=== PATIENT | female | born 1955 | race Caucasian/White ===

== ENCOUNTER → 2017-09-08 18:51 | Outpatient (CLI) | payer OTHER, SELFPAY ==
[2017-09-13 15:37] LABS: HPV Reflexed? NOT INDICATED
== END ==
PROVIDERS: Family Provider Family Medicine; PCP Family Medicine; Visit Provider Family Medicine
DX: Z01.419 Encounter for gynecological examination (general) (routine) without abnormal findings (principal)
CPT/HCPCS: 88175; G0145

== ENCOUNTER → 2017-11-01 13:13 | Outpatient (CLI) | payer OTHER, SELFPAY ==
--- NOTE | 2017-11-01 13:15 | BI_ITS ---
MAMMOGRAPHY - BILATERAL SCREENING REASON FOR EXAM: Female, 61 years old. Routine annual screening examination. PERTINENT HISTORY: Non-contributory. TECHNIQUE: Digital bilateral breast kecia (3D mammographic acquisition) in the CC and MLO projections. 2-D mediolateral oblique (MLO) and craniocaudad (CC) views of both breasts were obtained. CAD: Full Field Digital Mammography with Computer Added Detection was performed. COMPARISON: Comparison is made with prior study dated October 19, 2016 and October 09, 2015. FINDINGS: Breast Composition: The breasts are heterogeneously dense, which may obscure small masses. There are no dominant masses or suspicious calcifications. No other significant abnormalities are identified. There has been no significant change since the prior study. BI/SCREENING MAMM (CAD), BILAT IMPRESSION: Stable bilateral screening mammogram. Yearly follow-up mammogram recommended. (A) ASSESSMENT CATEGORY: BIRADS Category 1: Negative. A letter regarding these results will be sent to the patient by the facility within 30 days. Approximately 10% of breast cancers are not detected by mammography. A normal mammogram should not delay biopsy of a clinically suspicious abnormality. [id number] Electronically Signed: Collin Castañeda MD at 8:19 EDT Tel [phone], Service support ,
--- NOTE | 2017-11-01 13:22 | BI_ITS ---
MAMMOGRAPHY - BILATERAL SCREENING REASON FOR EXAM: Female, 61 years old. Routine annual screening examination. PERTINENT HISTORY: Non-contributory. TECHNIQUE: Digital bilateral breast kecia (3D mammographic acquisition) in the CC and MLO projections. 2-D mediolateral oblique (MLO) and craniocaudad (CC) views of both breasts were obtained. CAD: Full Field Digital Mammography with Computer Added Detection was performed. COMPARISON: Comparison is made with prior study dated October 19, 2016 and October 09, 2015. FINDINGS: Breast Composition: The breasts are heterogeneously dense, which may obscure small masses. There are no dominant masses or suspicious calcifications. No other significant abnormalities are identified. There has been no significant change since the prior study. BI/SCREENING MAMM (CAD), BILAT IMPRESSION: Stable bilateral screening mammogram. Yearly follow-up mammogram recommended. (A) ASSESSMENT CATEGORY: BIRADS Category 1: Negative. A letter regarding these results will be sent to the patient by the facility within 30 days. Approximately 10% of breast cancers are not detected by mammography. A normal mammogram should not delay biopsy of a clinically suspicious abnormality. [id number] Electronically Signed: Collin Castañeda MD at 8:19 EDT Tel [phone], Service support ,
== END ==
PROVIDERS: Family Provider Family Medicine; PCP Family Medicine; Visit Provider Family Medicine
DX: Z12.31 Encounter for screening mammogram for malignant neoplasm of breast (principal)
CPT/HCPCS: 77063; 77067

== ENCOUNTER → 2018-02-20 14:58 | Outpatient (CLI) | payer OTHER, SELFPAY ==
[2018-02-20 17:24] LABS: RBC /Synovial Fluid 0.094 10^6/uL (0); Synovial Fld Mononuclear WBC % 47.3 %; Synovial Fld Polynuclear WBC # 0.252 10^3/ul; Synovial Fld Polynuclear WBC % 52.7 %
[2018-02-20 18:40] LABS: Lymph 46 %; Monocyte /Synovial Fluid 5 %; Neutrophil 49 % (0-25)
[2018-02-20 18:47] LABS: AUTO B FLUID DILUENT BKGD CT WBC <0.1 RBC <0.01 (W<.1,R<.01); Appearance /Synovial Fluid Turbid (CLEAR); Color / Synovial Fluid Red (Pale Yellow); Source / Synovial Fluid R KNEE; Viscosity / Synovial Fluid Sl. Viscous (HIGH)
[2018-02-20 19:06] LABS: Body Fluid QC Type(s) BF3Q
[2018-02-21 13:37] LABS: Pathologist Comment Reviewed
== END ==
PROVIDERS: Family Provider Family Medicine; PCP Family Medicine; Visit Provider Specialist
DX: T84.032A Mechanical loosening of internal right knee prosthetic joint, initial encounter (principal)
CPT/HCPCS: 87015; 87070; 87075; 87077; 87101; 87116; 87186; 87205; 87206; 89050; 89051

== ENCOUNTER → 2018-03-09 14:08 | Outpatient (CLI) | payer OTHER, SELFPAY ==
[2018-03-09 15:12] LABS: Absolute Lymphocyte Count 2.13 X10^3/ul (0.83-4.51); Absolute Neutrophil Count 3.5 X10^3/uL (2.0-7.7); Basophil# 0.03 X10^3/uL; Basophil% 0.5 % (0-1); Eosinophil# 0.25 X10^3/uL; Eosinophils% 3.9 % (0-5); Hematocrit 41.6 % (37-47); Hemoglobin 13.1 g/dl (12.0-15.0); Lymphocyte # 2.13 X10^3/ul (4.0); Lymphocyte % 33.5 % (19-41); Mean Corp Hgb Conc 31.5 g/gl (32-36); Mean Corpuscular Hgb 30.4 pg (27.0-32.0); Mean Corpuscular Volume 96.5 fL (81-99); Mean Platelet Vol. 8.7 fl (6.2-12.0); Monocyte# 0.42 X10^3/uL; Monocyte% 6.6 % (0-10); Neutrophil # 3.52 X10^3/uL (2.7-7.7); Neutrophil % 55.3 % (47-70); Platelet Count 294 K/mm3 (150-450); RBC Distribution Width CV 13.8 % (11.6-14.6); RBC Distribution Width SD 48.3 fl (35.1-43.9); Red Blood Count 4.31 M/mm3 (4.2-5.4); White Blood Count 6.4 K/mm3 (4.4-11.0)
[2018-03-09 15:17] LABS: POSITIVE COUNT NO; POSITIVE DIFFERENTIAL NO; POSITIVE MORPHOLOGY NO
[2018-03-09 15:27] LABS: RBC /Synovial Fluid 0.245 10^6/uL (0); Synovial Fld Mononuclear WBC % 48.5 %; Synovial Fld Polynuclear WBC # 0.167 10^3/ul; Synovial Fld Polynuclear WBC % 51.5 %
[2018-03-09 15:27] LABS: Erythrocyte Sedimentation Rate 14 mm/hr (0-30)
[2018-03-09 15:36] LABS: CRP 6.58 mg/L (0.0-3.0)
[2018-03-09 16:36] LABS: Lymph 48 %; Monocyte /Synovial Fluid 21 %; Neutrophil 28 % (0-25); Other Cell /Synovial Fluid 3 %
[2018-03-09 16:37] LABS: AUTO B FLUID DILUENT BKGD CT WBC <0.1 RBC <0.01 (W<.1,R<.01)
[2018-03-09 16:38] LABS: Appearance /Synovial Fluid Hazy (CLEAR); Body Fluid QC Type(s) BF2Q; Color / Synovial Fluid Bloody (Pale Yellow); Source / Synovial Fluid R KNEE
[2018-03-10 15:15] LABS: Pathologist Comment Reviewed
== END ==
PROVIDERS: Family Provider Family Medicine; PCP Family Medicine; Referring Provider Specialist; Visit Provider Specialist
DX: T84.032A Mechanical loosening of internal right knee prosthetic joint, initial encounter (principal)
CPT/HCPCS: 36415; 85025; 85652; 86140; 87015; 87070; 87075; 87101; 87116; 87205; 87206; 89050; 89051

== ENCOUNTER 2018-05-17 11:07 | Inpatient (IN) | payer OTHER, SELFPAY ==
--- NOTE | 2018-05-05 22:22 | HP.PCM_ITS ---
History and Physical DATE OF SURGERY: 05/17/2018 SCHEDULED PROCEDURE: Revision Right Total Knee Arthroplasty HISTORY OF PRESENT ILLNESS: This is a 62-year-old female who has been having increased pain for the past 5-6 months. Patient initially underwent a right total knee arthroplasty in May 2011. She had a manipulation of the right knee in 2011. She denied any infections postoperatively. X-ray showed progressive loosening with the right knee components. Patient underwent a revision right total knee arthroplasty on December 01, 2016. Began having increased pain approximately 6 months ago. Patient had initial aspiration which was questionable for infection. Patient had second aspiration and lab work which was negative for infection. Lab work on March 09, 2018 showed an ESR of 14 and CRP 6.58. Patient continues to have pain which is intermittent, dull, and sore. Pain is increased going up and down stairs and sitting. She has difficult time with activities of daily living including walking her dog, housework, and shopping. Patient feels unsafe going up and down stairs. Patient has been through formal physical therapy with no relief in symptoms. She has tried oral medications with no relief in symptoms. Patient has a medical history pertinent for psoriasis and rheumatoid arthritis. We have obtain surgical clearance from patient's primary care physician. Patient currently denies chest pain, shortness of breath, fevers chills, recent infections. Recent x-rays do show lucencies around the components. After failing conservative measures and discussing treatment options with Dr. Manjinder Vogel, the patient does wish to proceed with a revision right total knee arthroplasty. REVIEW OF SYSTEMS: ROS: Const: Reports weight change and vision problems, but denies anorexia and fever,hard of hearing . Eyes: Reports a recent change in visual acuity. CV: Denies heart murmur, chest pain, irregular heartbeat and peripheral vascular disease. Resp: Denies asthma, cough, pneumonia, sleep apnea, SOB, tuberculosis and wheezing. GI: Reports constipation and heartburn, but denies diarrhea, nausea, bloody stools and vomiting, and difficulty swallowing. : Genital: reports dysmenorrhea. Urinary: denies incontinence. Musculo: Reports leg swelling and trouble walking, but denies weakness and limp. Skin: Denies Raynaud's, history of shingles and tattoo. Neuro: Reports numbness/tingling but denies ambulatory dysfunction, dizziness and tremor. Psych: Reports stress, but denies anxiety, depression, insomnia and mental illness. Otf/Lymph: Reports anemia, but denies bleeding/bruising tendency and past transfusion. Reviewed, no changes. 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 COATES Carpal Tunnel - BILAT/1990/[facility]/DR. RANDOLPH BILAT/1995/[facility]/ RT TKR - (05/2011) DR. COATES Manipulation RT Knee - (08/2011) DR. COATES Back - (2013) Spinal Cord Stimulation - 08/23--IMPLANTED 08/30--REMOVED RT TKR Revision - (12/01/2016) SAW@[facility] Shoulder Replacement LT - Dr. Vogel 05-31-17 Spinal Cord Stimulator Placed - (10/2017) Anesthesia Complications: Anesthesia Complications - 1995 Trouble Waking Up Assistive Devices: Glasses Reviewed, no changes. 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 Personal Habits: Cigarette Use: Former.Alcohol: Occasionally.Drug Use: Denies Use.Enjoy Exercising: Daily. Reviewed, no changes. VITALS: Ht: 64 Wt: 184lb Wt k.462 BMI: 31.6 BP: 112/70 Pulse: 68 Resp: 05018 ALLERGIES: PCN Sulfa Formaldehyde Fragrance - ??? MEDICATIONS: Amitriptyline HCL 25 mg 1 tab PO qhs, Folic Acid 1 mg 2 tabs PO once daily, Plaquenil 200 mg 1 tab PO bid, Methotrexate 2.5 mg 7 tabs by mouth once weekly, Multivitamin 1 tab PO daily PRE-OP EXAM: General appearance:NORMAL Other: Eyes: Conjunctivae and lids: NORMAL Pupils: ERR Ears, Nose, Mouth, and Throat: NORMAL Other: Inspection of lips, teeth and gums: NORMAL Other: Neck: Examination of neck: no masses noted. Respiratory: Assessment of respiratory effort: NORMAL Other: Auscultation of lungs: clear to auscultation no wheezes, rhonchi or rales. Cardiovascular: Auscultation of heart: regular rate and rhythm, no murmurs, gallops or rubs. Exam of carotid arteries: NORMAL Other: Gastrointestinal: Exam of abdomen: soft, nontender, nondistended bowel sounds present. PHYSICAL EXAMINATION: Right knee is cool to touch without erythema. Previous incision is well-healed. Patient's range of motion is 0 of extension to 110 flexion. Patient walks without a limp in gait. She does have pain when walking. Sensation intact to light touch. Neurovascularly intact. IMAGING STUDIES: X-rays of the right knee on February 20, 2018 does reveal progressive lucencies around the cement mantle and implant particularly over the medial tibia. There is also lucencies at the tip of the femoral stem. IMPRESSION: 1. Painful right total knee with loosening 2. Rheumatoid arthritis 3. Psoriasis 4. History of headaches/migraines PLAN: Dr. Manjinder Vogel did discuss and review with the patient all treatment options including surgical versus nonsurgical options. Patient does wish to proceed wi th the above-stated procedure. Potential risks, benefits, and complications of the procedure were discussed in detail including but not limited to , infection, nerve and blood vessel damage, persistent pain, numbness, tingling, paresthesias, blood clot, pulmonary embolism, and requirement for possible further surgery. The patient expressed full understanding and has no further questions for the doctor. Patient does agree to proceed with the above-stated procedure and has signed the surgery consent form. This dictation was created using voice recognition software. Phonetic and/or grammatical errors may exist.. ___ I have re-examined the patient. There are no clinical changes since date of exam. ___ See progress notes for changes. ___ Dictated on admission Date: Time: Signature:
[2018-05-09 13:07] VITALS: BP 113/67; PULSE 85; RESP 16; TEMP 36.5; O2SAT 96; BMI 31.6
--- NOTE | 2018-05-09 13:20 | SDCEKG_ITS ---
Test Reason : Blood Pressure : / mmHG Vent. Rate : 077 BPM Atrial Rate : 077 BPM P-R Int : 158 ms QRS Dur : 090 ms QT Int : 398 ms P-R-T Axes : 054 060 044 degrees QTc Int : 450 ms Normal sinus rhythm Normal ECG Confirmed by RASHID WERNER, ERNIE ([id number]), editor managing newspaper AMELIA IRAHETA ([id number]) on 05/12/2018 2:49:52 PM Referred By: Manjinder Vogel Confirmed By:ERNIE MIKE MD
[2018-05-09 15:03] LABS: Absolute Lymphocyte Count 1.76 X10^3/ul (0.83-4.51); Absolute Neutrophil Count 3.5 X10^3/uL (2.0-7.7); Basophil# 0.03 X10^3/uL; Basophil% 0.5 % (0-1); Eosinophil# 0.29 X10^3/uL; Eosinophils% 4.8 % (0-5); Hematocrit 41.4 % (37-47); Hemoglobin 13.1 g/dl (12.0-15.0); Lymphocyte # 1.76 X10^3/ul (4.0); Lymphocyte % 28.9 % (19-41); Mean Corp Hgb Conc 31.6 g/gl (32-36); Mean Corpuscular Hgb 30.5 pg (27.0-32.0); Mean Corpuscular Volume 96.3 fL (81-99); Mean Platelet Vol. 8.6 fl (6.2-12.0); Monocyte# 0.55 X10^3/uL; Neutrophil # 3.47 X10^3/uL (2.7-7.7); Neutrophil % 56.8 % (47-70); Platelet Count 270 K/mm3 (150-450); RBC Distribution Width CV 13.6 % (11.6-14.6); RBC Distribution Width SD 46.4 fl (35.1-43.9); White Blood Count 6.1 K/mm3 (4.4-11.0)
[2018-05-09 15:04] LABS: POSITIVE COUNT NO; POSITIVE DIFFERENTIAL NO; POSITIVE MORPHOLOGY NO
[2018-05-09 15:25] LABS: Anion Gap 6 (5-15); BUN 17 mg/dL (7-18); BUN/Creat Ratio 22.3 RATIO (10-20); Calcium,Total 8.8 mg/dL (8.5-10.1); Chloride 108 mmol/L (98-107); Creatinine, Serum 0.76 mg/dL (0.55-1.02); EST Glomerular Filtration Rate 81 mL/min (>60); Est Glom Filt Rate - Afr Amer 98 mL/min (>60); Estimated Creatinine Clearance 64.58 ml/min; Glucose 91 mg/dL (74-106); Potassium 3.9 mmol/L (3.5-5.1); Sodium Level 142 mmol/L (136-145)
--- NOTE | 2018-05-12 14:21 | CASEMGMT ---
Attempted to contact patient to discuss discharge needs after upcoming surgery. No answer on cell phone, voicemail left. Mae Hays LPN Clinical Support
--- NOTE | 2018-05-15 12:17 | CASEMGMT ---
Received voicemail from patient this morning, attempted to call back on cell phone, no answer. Voicemail left. Mae Hays LPN Clinical Support
--- NOTE | 2018-05-15 13:59 | CASEMGMT ---
Spoke with patient regarding discharge needs after upcoming surgery. Patient plans to return home with assistance from and with neighbor checking in. Outpatient PT set up in [place], [id number] will assist with transportation. Patient has a walker and grab bars, no toilet riser or shower seat. The bedroom and bathroom are up approx 6 steps, patient reports she did not have any problems navigating the stairs the last 2 times shes had surgery. There's 1 step from garage into house and then another 5-6 steps. Informed patient that RN-CM will follow up after surgery. Mae Hays LPN Clinical Support
[2018-05-17] VITALS (10 sets, daily range): BP systolic 92–125; BP diastolic 54–80; PULSE 70–82; RESP 16–18; TEMP 35.9–36.6; O2SAT 94–100; BMI 31.6
[2018-05-17] MEDS: oxyCODONE HCl Cr 10 MG Tablet PO (11:46)
[2018-05-17] MEDS: Acetaminophen 500 MG Tablet 1000 MG PO ×2 (11:46→22:44)
[2018-05-17] MEDS: Celecoxib 200 MG Capsule 400 MG PO (11:46)
--- NOTE | 2018-05-17 16:39 | OP.PCM_ITS ---
Report of Operation Date of Procedure: 05/17/18 Pre-Operative Diagnosis: Failed right total knee replacement, aseptic loosening Post-Operative Diagnosis: Failed right total knee replacement, aseptic loosening Surgery/Procedure Performed:: Revision right total knee replacement entire tibia and femoral components Description of Surgical Findings:: Stable knee good patella tracking. No signs of infection intraoperatively neck band maker: Todd Raymond Type of Anesthesia:: General Anesthesiologist: Ion Person Special Medications: 600 mg clindamycin prior to incision and 2 and half hours after incision, 1 g TXA at incision, 1 g TXA closure, 10 mg Decadron, joint cocktail (5 mg Duramorph, 30 mL of 0.5% Ropivicaine, 1000 units of epinephrine, 30 mg of Toradol) Specimen's removed: 5 total specimens were sent to microbiology Estimated Blood Loss (mL): 200 mL Fluids Replaced: 2000 L crystalloid Description of Procedure: Components used: Femur: Triathlon TS size 4 right femur with 10 mm augments medially and laterally distally and 5 mm augment posterior laterally. Stem 17 x 150 mm fluted stem Tibia: [place] tibial baseplate size 3 stem, 16 mm x 100 mm fluted stem, size D tibial cone Polyethylene: 19 mm TS Rosy X3 polyethylene Procedure: On the date of the procedure patient's right leg was marked in the preoperative area. Patient was taken back to the operating room where there transferred to the table in the supine position. Anesthesia assumed control of the C-spine airway and remained to control throughout the remainder of the procedure. After anesthetic was administered all bony prominences were identified well-padded and a tourniquet was placed on the right upper thigh. Appropriate positioning was done with the assistance of the PA. The right lower semi-was then prepped in a sterile fashion while the surgeon scrubbed. After my assistant foreman and myself scrubbed and reentered the room the right leg was draped in a standard orthopedic fashion. Incision was marked out using the previous incision and a timeout was called. Everyone agreed upon the side, the site, the procedure be performed, patient's identity and antibiotics given. Esmarch bandage was used to exsanguinate the extremity and the leg was flexed. Tourniquet was placed up to 250 mmHg. Incision was taken down through skin subcutaneous tissue fat down to fascia. Appropriate cutaneous flaps were made medially and laterally. Once we identified the previous arthrotomy sharp dissection was used to make the arthrotomy. We did a quadriceps snip proximally. At this time the knee was placed in extension and aggressive synovectomy was performed. We released the medial collateral ligament for appropriate exposure. We then started with a medial gutter synovectomy proceeding to the suprapatellar pouch and finally to the lateral gutter. Once this was completed we flexed the knee up and removed the polyethylene. Once a polyethylene was removed the remainder of the synovectomy was completed. Our attention was then directed towards the femur. Osteotomes were used to break up the bone cement interface as well as a significant cell. In between the cement and bone was noted to be a membrane. An osteotome was placed between the cone and the distal femoral component and it was eventually dislodged from the cement mantle. Once the femur was removed we were able to inspect the distal femur. The cone body was well fixed to the bone at this time we elected to keep the cone body. We then directed our attention to the tibia. Tibia was adequately exposed and starting medially we began to break up the bone cement interface. Once we did this we were able to place osteotomes between the tibial baseplate and tibial cone. We used these osteotomes to dislodge the tibia component. Once this was removed we could then evaluate the tibial cone. Based on the radiographic x-rays and visualization of the tibial, we elected to remove the tibial cone. Should be noted that to remove the implants from the tibial cones took careful attention and extra time is not to cause an intraoperative fracture. We then directed our attention towards the tibia where a pencil-tip bur was used to bur circumferentially around the cone. Once we had burred to circumferentially around the cone using irrigation to try and prevent bone necrosis were able to remove the cone using the cone extraction device. At this time we had to remove cement mantle from both the tibia and the femur. After removing the cement mantle from the tibia are tourniquet time had reached 90 minutes and we elected to place the tourniquet down for the remainder of the bone prep. This was done very carefully and took significant amount of time. After the cement mantle was removed and the tibia we then removed it from the femur using osteotomes and drills. Once the cement was completely removed from both canals we then sequentially reamed both canals. The tibial canal was reamed to 16 mm and the femoral canal was reamed to 17 mm. Tibial canal was re doris for 100 mm stem and the femoral canal was reamed for 150 mm stem. Once the canals were properly prepped we then re-reamed the proximal tibia for a larger cone. We reamed to a size D cone. The D cone trial was impacted into place and a flat tibial cut was made just above this. This was taken down to good bone. Once a cleanup cut was made we then placed the tibial trial component after ray cking the tibial cut for appropriate cut with the drop gabriel. Once the tibial trial was placed we then prepared the distal femoral bone in keeping in mind that the previous colon was still in place we placed the 2, 10 mm distal femoral augments as was the case with the extracted implants. The posterior lateral 5 mm augment was also placed. At this time we were able to trial. This gave us good patella tracking. We had a balanced knee. Trials were removed at this time. The bone ends were exposed and a bur was used to roughen up the bone ends and make small interdigitation areas. Once we are happy with the appropriate bone prep which we took extra time and attention preparing the bone due to the nature of the loosening and minimal areas of bone contact from the previous cones. 2 batches of [place] Simplex cement were mixed. The wound was copiously irrigated out with 6 L normal saline under low pressure lavage. Once the cement was ready and irrigation had been completed the bone ends were dried cement was placed on the backside of the tibia and the tibia was impacted into place. Excess cement was removed. Cement was placed on the backside of the femur and it was impacted into place. Excess cement was removed. The knee was placed in extension and excess cement was removed. We placed the knee in extension we used a 16 mm polyethylene. Once the cement had appropriately cured we again trialed and balanced the knee. A 19 mm tibial polyethylene gave us the most balance knee in flexion and extension. The TS polyethylene was opened and impacted into place. Central pin was placed. Wound was copiously irrigated out with normal saline once again. Particular injection was given. The quadriceps snip was repaired with #2 FiberWire. The remainder of the arthrotomy was repaired with #1 Vicryl. Skin was closed with 2-0 Vicryl and final skin closure was done with nylon. Sterile dressing was placed, compressive dressing was placed. Patient was awakened by anesthesia and transferred to PACU for recovery. Postoperative plan: Patient was placed on Xarelto for DVT prophylaxis. Weight- bear as tolerated, activity as tolerated. Follow-up in the office in 2 weeks for wound check. My physician assistant foreman was a vital part of this case. He was important in appropriate retraction during the case, and protection of soft tissues during bony cuts. His intimate knowledge of the case and my steps aided in safe and expedient completion of the procedure as well as appropriate position of the leg during the case. He was also vital in assisting with closure under my direct supervision. It should be noted that during the course of this case based on this being a revision of a revision and with extensive fixation at the previous surgery we did take extra time. We did take extra time positioning the patient, we had to take extra time as noted in the operative report removing the implants to prevent fracture and removing the tibial cone. We also took extra time carefully preparing the bone ends for good cement interdigitation. Overall the case took roughly 3-1/2 hours. Standard total knee revision takes 2-1/2 hours. Grafts/Implants Used: Rosy triathlon TS total knee - Complications None - Admit VTE Documentation VTE Present on Admission: No VTE Mechan Device Prophylaxis: SCD's, Thigh High DOMINGO Hose VTE Pharm Prophylaxis ordered?: Yes
--- NOTE | 2018-05-17 17:28 | RAD_ITS ---
STUDY: X-RAY - RIGHT KNEE REASON FOR EXAM: Female, 62 years old. Postop revision of knee replacement. TECHNIQUE: 4 view(s) of the knee. COMPARISON: Right knee, December 01, 2016. FINDINGS: There is been surgical revision of the right total knee arthroplasty. The current prosthesis has a longer anchoring shafts. There is no fracture or loosening from the underlying bone. Air is seen in the anterior soft tissues. RAD/Knee 1 or 2 Views IMPRESSION: Surgical revision of right total knee arthroplasty. Electronically Signed: Florentin Zhao DO at 21:39 EST Tel [phone], Service support ,
[2018-05-17] MEDS: Scopolamine 1mg/72hr Patch 1 PATCH TD (17:46)
[2018-05-17] MEDS: Lactated Ringers 1,000 ML 999 ML IV (17:52)
[2018-05-17] MEDS: Lactated Ringers 1,000 ML 125 ML IV (20:56)
[2018-05-17] MEDS: oxyCODONE 5 MG Tablet PO (22:42)
[2018-05-17] MEDS: Amitriptyline 25 MG Tablet PO (22:44)
[2018-05-17] MEDS: Senna/Docusate Sodium 1 Tablet 2 TABLET PO (22:45)
[2018-05-18 04:35] VITALS: BP 102/63; PULSE 73; RESP 16; TEMP 36.6; O2SAT 100
[2018-05-18 05:42] LABS: Hemoglobin 9.7 g/dl (12.0-15.0); Mean Corp Hgb Conc 31.3 g/gl (32-36); Mean Corpuscular Hgb 30.9 pg (27.0-32.0); Mean Corpuscular Volume 98.7 fL (81-99); Mean Platelet Vol. 8.3 fl (6.2-12.0); Platelet Count 263 K/mm3 (150-450); RBC Distribution Width CV 13.2 % (11.6-14.6); RBC Distribution Width SD 45.5 fl (35.1-43.9); Red Blood Count 3.14 M/mm3 (4.2-5.4); White Blood Count 9.4 K/mm3 (4.4-11.0)
[2018-05-18 05:53] LABS: Scan Indicated on CBC? Y/N NO
[2018-05-18 06:03] LABS: Anion Gap 6 (5-15); BUN 13 mg/dL (7-18); BUN/Creat Ratio 22.3 RATIO (10-20); Calcium,Total 8.2 mg/dL (8.5-10.1); Chloride 107 mmol/L (98-107); Creatinine, Serum 0.58 mg/dL (0.55-1.02); EST Glomerular Filtration Rate 110 mL/min (>60); Est Glom Filt Rate - Afr Amer 134 mL/min (>60); Estimated Creatinine Clearance 84.62 ml/min; Glucose 144 mg/dL (74-106); Potassium 4.8 mmol/L (3.5-5.1); Sodium Level 141 mmol/L (136-145)
[2018-05-18] MEDS: Acetaminophen 500 MG Tablet 1000 MG PO ×3 (06:03→21:45)
[2018-05-18 07:39] VITALS: O2SAT 96
[2018-05-18 08:56] VITALS: BP 97/63; PULSE 76; RESP 18; TEMP 37; O2SAT 98
[2018-05-18] MEDS: Senna/Docusate Sodium 1 Tablet 2 TABLET PO ×2 (09:01→21:46)
[2018-05-18] MEDS: Folic Acid 1 MG Tablet 2 MG PO (09:01)
[2018-05-18] MEDS: Multivitamins,Therapeutic Tablet 1 TABLET PO (09:02)
[2018-05-18] MEDS: Famotidine 20 MG Tablet PO (09:02)
[2018-05-18] MEDS: Hydroxychloroquine 200 MG Tablet PO ×2 (09:02→17:18)
[2018-05-18] MEDS: Rivaroxaban 10 MG Tablet PO (09:04)
--- NOTE | 2018-05-18 10:24 | PCM.PN.ORT ---
Subjective: The patient was sitting in bedside chair upon examination. Patient denies any chest pain, shortness of breath, dizziness, lightheadedness, nausea or vomiting, or calf pain. Patient does complain of pain in the right knee. Medications have been helping. She is currently involved with physical therapy no adverse overnight events. Patient has had a second revision on the right knee and I do feel she needs another day with physical therapy in the hospital. Objective: Vital signs stable and afebrile. Patient is able to plantarflex and dorsiflex actively. Sensation is intact to light touch to saphenous, sural, superficial and deep peroneal, and tibial distribution. Dressing is clean dry and intact. Negative Homans bilaterally, negative signs and symptoms of DVT. - Physical Exam General: Alert, Oriented x3, Cooperative, No apparent distress Vital Signs Temp Pulse Resp BP Pulse Ox 98.6 F 76 18 97/63 98 05/18/18 08:56 05/18/18 08:56 05/18/18 08:56 05/18/18 08:56 05/18/18 08:56 Oxygen Flow Rate (L/min) 2 Oxygen Delivery Method Room Air Weight: 83.46 kg Body Mass Index (BMI) 31.6 Intake and Output for Last 24 Hours 05/16/18 05/17/18 05/18/18 23:59 23:59 23:59 Intake Total 1999 Output Total 500 / 500 Balance 1999 1496 / 1496 Laboratory Tests Past 24 Hrs 05/18/18 05/18/18 05:20 05:20 WBC 9.4 RBC 3.14 L Hgb 9.7 L Hct 31.0 L MCV 98.7 MCH 30.9 MCHC 31.3 L RDW 13.2 RDW Differential 45.5 H Plt Count 263 MPV 8.3 Sodium 141 Potassium 4.8 Chloride 107 Carbon Dioxide 28.0 Anion Gap 6 BUN 13 Creatinine 0.58 Estim Creat Clear Calc 84.62 Est GFR (MDRD) Af Amer 134 Est GFR (MDRD) Non-Af 110 BUN/Creatinine Ratio 22.3 H Glucose 144 H Calcium 8.2 L Medical Necessity - Tobacco Use Smoking Status: Never smoker Assessment/Plan 1. S/P right revision total knee arthroplasty POD #1 2. Continue Pain Medications: Tylenol and OxyIR 3. DVT Prophylaxis: Xarelto 4. PT/OT: Weightbearing as tolerated 5. H & H: 9.7/31.0, asymptomatic 6. Encouraged Incentive Spirometry 7. Disposition: Plan will be for possible discharge home tomorrow. I do feel patient needs another day of physical therapy. She does have pain down in the knee and her leg. Patient does have a spinal cord stimulator which has been turned off. Continue to ice the right knee when not up with therapy.
--- NOTE | 2018-05-18 10:29 | PCM.DC.TKR ---
Discharge Diet: No Restrictions Discharge Activity: May Not Drive May shower in (days): 1 - Turned dressing away from water Ice area for (Minutes): 20 - every hour while awake. Weight Bearing Status: Weight bearing as tolerated Elevate: Operative Extremity Additional Activity Instructions:: Wear elastic stockings for 2 weeks after your surgery. Call your doctor if your incision/area has: Continuous Slow Oozing, Sudden Increased Bleeding, Increased Pain/ Swelling, Increased Redness, Foul Smelling Discharge Call your doctor if you observe: Fever of 101 or Higher, Coldness, Increased Pain, Numbness or Tingling, Change in Color, Calf discomfort, Uncontrolled pain Remove Dressing in (days):: 3 - Okay to remove dressing on May 22, 2018 Additional Instructions: Follow [facility] postop instructions DVT prophylaxis: We will take Xarelto for the first 2 weeks postoperatively. At 2-week visit will switch over to 81 mg aspirin twice daily with food for an additional 2 weeks. Allergies/Adverse Reactions: Allergies balsam mike Allergy (Verified 05/09/18 13:03) Rash formaldehyde Allergy (Verified 05/09/18 13:03) Rash latex Allergy (Verified 05/09/18 13:03) Rash Penicillins [PCN] Allergy (Verified 05/09/18 13:03) Rash Sulfa (Sulfonamide Antibiotics) Allergy (Verified 05/09/18 13:03) Rash Medications to take at Discharge Amitriptyline HCl [Elavil] 25 mg PO QHS 11/22/16 Folic Acid 2 mg PO DAILY 11/22/16 Hydroxychloroquine [Plaquenil] 200 mg PO BIDCM 11/22/16 Methotrexate 17.5 mg PO WE 11/22/16 Multivitamin [Daily Multiple Vitamin] 1 each PO DAILY 11/22/16 Acetaminophen [Tylenol Extra Strength] 1,000 mg PO Q8H PRN #90 tablet 05/19/18 Doxycycline 100 mg PO BID #12 capsule 05/19/18 Oxycodone [Oxyir] 5 - 10 mg PO Q4H PRN PRN 5 Days #60 tablet 05/19/18 Rivaroxaban [Xarelto] 10 mg PO DAILY@0800 #13 tablet 05/19/18 Senna/Docusate Sodium [Senokot-S] 2 tablet PO BID tablet 05/19/18 The following prescriptions were given: Oxycodone [Oxyir] 5 - 10 mg PO Q4H PRN PRN 5 Days #60 tablet PRN Reason: Mod-Severe Pain (4-03/15) Acetaminophen [Tylenol Extra Strength] 1,000 mg PO Q8H PRN #90 tablet Rivaroxaban [Xarelto] 10 mg PO DAILY@0800 #13 tablet Doxycycline 100 mg PO BID #12 capsule Primary Care Physician: Rian Houser MD [Primary Care Provider] - Test Results: Test results from this visit will be discussed in further detail at your follow-up appointment, if applicable. Please Follow Up With: [facility] When: 05/22/18 Please Follow Up With: Todd Raymond PA-C When: 06/01/18 @ 2:30 pm
--- NOTE | 2018-05-18 10:45 | CASEMGMT ---
[facility] Face to Face with patient for initial transition planning/care coordination assessment. RN LAURA introduced self and role at [facility]. Patient lying in bed, alert and oriented. Patient willing to participate in assessment and is able to answer all questions appropriately. Care providers, pharmacy, and demographics verified. Patient wishes to discharge home and is setup with [facility]. Patient states she has no further needs or concerns at this time. CM to follow for discharge planning needs that may arise. PCP: Mik Specialists:None Preferred Pharmacy: [facility] Insurance: MMO Prescription Benefit:MMO Living Will/HPOA: LNOK: Living Arrangements: Patient lives with spouse in 1 story home with 1 step to enter the home. Transportation: or [facility]: Patient has cane, crutches, grab bars, walker. Disposition Plan: Patient to discharge home with outpatient therapy, family support, and follow-up plans in place. Mickie GILMAN, RN, CM
[2018-05-18] MEDS: oxyCODONE 5 MG Tablet PO ×2 (15:16→21:43)
[2018-05-18 15:18] VITALS: BP 96/65; PULSE 77; RESP 18; TEMP 36.9; O2SAT 96
[2018-05-18 20:07] VITALS: BP 110/62; PULSE 100; RESP 16; TEMP 37; O2SAT 98
[2018-05-18] MEDS: Amitriptyline 25 MG Tablet PO (21:43)
[2018-05-18] MEDS: Doxycycline 100 MG CAPSULE PO (21:48)
[2018-05-19 02:05] VITALS: BP 123/68; PULSE 95; RESP 16; TEMP 37.2; O2SAT 97
[2018-05-19] MEDS: Acetaminophen 500 MG Tablet 1000 MG PO ×2 (06:07→14:57)
[2018-05-19 06:50] LABS: Hematocrit 28.1 % (37-47); Hemoglobin 8.9 g/dl (12.0-15.0); Mean Corp Hgb Conc 31.7 g/gl (32-36); Mean Corpuscular Hgb 30.5 pg (27.0-32.0); Mean Corpuscular Volume 96.2 fL (81-99); Mean Platelet Vol. 8.1 fl (6.2-12.0); Platelet Count 233 K/mm3 (150-450); RBC Distribution Width SD 48.2 fl (35.1-43.9); Red Blood Count 2.92 M/mm3 (4.2-5.4); Scan Indicated on CBC? Y/N NO; White Blood Count 7.9 K/mm3 (4.4-11.0)
--- NOTE | 2018-05-19 07:02 | PN.ORTHO_ITS ---
Subjective: The patient was sitting in bedside chair upon examination. Patient denies any chest pain, shortness of breath, dizziness, lightheadedness, nausea or vomiting, or calf pain. Pain is controlled on medications. No adverse overnight events. Patient does complain of some thigh pain. I do believe this is secondary from the tourniquet. Patient is ready for discharge home today. Objective: Vital signs stable and afebrile. Patient is able to plantarflex and dorsiflex actively. Sensation is intact to light touch to saphenous, sural, superficial and deep peroneal, and tibial distribution. Dressing is clean dry and intact. Negative Homans bilaterally, negative signs and symptoms of DVT. - Physical Exam General: Alert, Oriented x3, Cooperative, No apparent distress Vital Signs Temp Pulse Resp BP Pulse Ox 99 F 95 16 123/68 H 97 05/19/18 02:05 05/19/18 02:05 05/19/18 02:05 05/19/18 02:05 05/19/18 02:05 Oxygen Flow Rate (L/min) 2 Oxygen Delivery Method Room Air Weight: 83.46 kg Body Mass Index (BMI) 31.6 Intake and Output for Last 24 Hours 05/17/18 05/18/18 05/19/18 23:59 23:59 23:59 Intake Total 1999 3296 / 3296 1200 / 1200 Output Total 1800 / 1800 1200 / 1200 Balance 1999 1496 / 1496 0 / 0 Microbiology Past 72 Hours 05/17/18 16:40 Gram Stain - Final Tissue - Knee Wound Culture - Preliminary No growth-Final to follow 05/17/18 16:40 Gram Stain - Final Tissue - Knee Wound Culture - Preliminary No growth-Final to follow 05/17/18 16:40 Gram Stain - Final Tissue - Knee Wound Culture - Preliminary No growth-Final to follow 05/17/18 16:40 Gram Stain - Final Tissue - Knee Wound Culture - Preliminary No growth-Final to follow 05/17/18 16:40 Gram Stain - Final Tissue - Knee Wound Culture - Preliminary No growth-Final to follow Laboratory Tests Past 24 Hrs 05/19/18 05:45 WBC 7.9 RBC 2.92 L Hgb 8.9 L Hct 28.1 L MCV 96.2 MCH 30.5 MCHC 31.7 L RDW 14.0 RDW Differential 48.2 H Plt Count 233 MPV 8.1 Medical Necessity - Tobacco Use Smoking Status: Never smoker Assessment/Plan 1. S/P right revision total knee arthroplasty POD #2 2. Continue Pain Medications: Tylenol and OxyIR 3. DVT Prophylaxis: Xarelto 4. PT/OT: Weightbearing as tolerated 5. H & H: 8.9/28.1, asymptomatic 6. Encouraged Incentive Spirometry 7. Continue antibiotics while following cultures. 8. Disposition: Plan is for discharge home today. Patient orthopedically stable. Prescriptions will be E scribed to [facility] in [place]. Patient will follow-up per postop instructions.
[2018-05-19 08:05] VITALS: BP 109/48; PULSE 100; RESP 16; TEMP 36.4; O2SAT 99
[2018-05-19] MEDS: oxyCODONE 5 MG Tablet PO ×2 (08:11→12:18)
[2018-05-19] MEDS: Senna/Docusate Sodium 1 Tablet 2 TABLET PO (08:14)
[2018-05-19] MEDS: Folic Acid 1 MG Tablet 2 MG PO (08:15)
[2018-05-19] MEDS: Rivaroxaban 10 MG Tablet PO (08:16)
[2018-05-19] MEDS: Hydroxychloroquine 200 MG Tablet PO (08:16)
[2018-05-19] MEDS: Famotidine 20 MG Tablet PO (08:17)
[2018-05-19] MEDS: Multivitamins,Therapeutic Tablet 1 TABLET PO (08:17)
[2018-05-19] MEDS: Doxycycline 100 MG CAPSULE PO (08:17)
[2018-05-19 13:41] VITALS: O2SAT 98
[2018-05-19 15:06] VITALS: BP 107/58; PULSE 97; RESP 16; TEMP 36.7; O2SAT 100
--- OUTSIDE RECORDS SUMMARY | 2018-07-03 13:58 | XMS RPT_ITS ---
:1955 Author Organization OHIP Support Name Relationship Address Phone JEFFREY ABREU Unavailable [address] + [place] [address] JEFFREY ABREU Unavailable [address] + [place] [address] [facility] Unavailable [address] + [place] [address] JEFFREY ABREU Unavailable [address] + [place] [address] [facility] Unavailable [address] + [place] [address] BRADY JEFFREY Unavailable [address] + [place] [address] BRADY JEFFREY Unavailable [address] + [place] [address] JEFFREY ABREU Unavailable [address] + [place] [address] [facility] Unavailable [address] + [place] [address] BRADY JEFFREY Unavailable [address] + [place] [address] [facility] Unavailable [address] + [place] [address] BRADY JEFFREY Unavailable [address] + [place] [address] BRADY JEFFREY Unavailable [address] + [place] [address] BRADY JEFFREY Unavailable [address] + [place] [address] [facility] Unavailable [address] + [place] [address] JEFFREY ABREU Unavailable [address] + [place] [address] BRADYJEFFREY SNIDER Unavailable [address] + [place] [address] BRADYJEFFREY Unavailable [address] + [place] [address] [facility] Unavailable [address] + [place] [address] JEFFREY ABREU Unavailable [address] + [place] [address] Care Team Providers Name Role Phone TAMMY, SHANTEL Referring Unavailable FRANKY PHILLIPS Attending Unavailable TAMMY, SHANTEL Referring Unavailable FRANKY PHILLIPS Attending Unavailable TAMMY, SHANTEL Referring Unavailable FRANKY PHILLIPS Attending Unavailable PINEDA, PAPITOUO Referring Unavailable PINEDA, PAPITOUO Admitting Unavailable PINEDA, PAPITOUO Attending Unavailable PINEDA, PAPITOUO Referring Unavailable PINEDA, SHANTEL Attending Unavailable PINEDA, PAPITOUO Referring Unavailable PINEDA, PAPITOUO Referring Unavailable PINEDA, PAPITOUO Referring Unavailable ASHLEY MAJOR (SURINDER) Attending Unavailable PINEDA, SHANTEL Referring Unavailable PINEDA, SHANTEL Attending Unavailable EB IRAHETA Referring Unavailable WILFREDO GAYTAN, DR. [place] Attending Unavailable ESEQUIEL GAYTAN, DR. EB [facility] Unavailable WILFREDO GAYTAN, DR. [place] Attending Unavailable ESEQUIEL GAYTAN, DR. EB Beverly Primary [facility] Unavailable WILFREDO GAYTAN, DR. [place] Attending Unavailable ESEQUIEL GAYTAN, DR. EB Beverly Primary [facility] Unavailable WILFREDO GAYTAN, DR. [place] Attending Unavailable ESEQUIEL GAYTAN, DR. EB Beverly Primary Care Unavailable Anson Nguyen Attending Unavailable Manjinder Vogel Referring Unavailable Esequiel, Eb Attending Unavailable Esequiel, Eb Primary Care Unavailable Iraheta, Eb Referring Unavailable Esequiel, Eb Attending Unavailable Esequiel, Eb Primary Care Unavailable Manjinder Vogel Attending Unavailable Manjinder Vogel Referring Unavailable Esequiel, Eb Primary Care Unavailable Manjinder Vogel Attending Unavailable Manjinder Vogel Referring Unavailable Iraheta, Eb Primary Care Unavailable Manjinder Vogel Admitting Unavailable Manjinder Vogel Attending Unavailable Jaspreet, Manjinder Referring Unavailable Iraheta, Eb Primary Care Unavailable PROBLEMS PROBLEMS DATE TYPE CONDITION / CODE ATTENDING STATUS SOURCE 05/24/2018 Unknown T84.032A - Mechanical Manjinder Vogel Active [place] loosening of internal [facility] right knee prosthetic Hospital joint, initial Repository encounter / T84.032A(ICD-10) 05/24/2018 Unknown Z96.651 - Presence of Manjinder Vogel Active [place] right artificial knee Community joint / Hospital Z96.651(ICD-10) Repository 05/19/2018 Unknown Z01.810 - Encounter PatrickAnson hogan Active [facility] / Repository Z01.810(ICD-10) 11/18/2015 Active Other specified NA Active [facility] postprocedural states [facility] / Z98.890(ICD-10) [place] Repository 11/18/2015 Active Lumbago with NA Active [facility] sciatica, left side / [facility] M54.42(ICD-10) [place] Repository 11/18/2015 Active Lumbago with NA Active [facility] sciatica, right side [facility] / M54.41(ICD-10) [place] Repository 11/18/2015 Active Other chronic pain / NA Active [facility] G89.29(ICD-10) [facility] [place] Repository 10/04/2017 Active 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, 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 [place] / M96.1(ICD-10) Repository PROCEDURES PROCEDURES No Procedure Records FoundRESULTS RESULTS CBC Collected: 06/13/2018 Status: F Source: [facility] 9:40 AM [facility] REPOSITORY TYPE CODE TESTS RESULT OUT OF REFERENCE UNITS RANGE LAB WBC(LOINC) 4.60-10.80 10 3/mcL WBC 6.30 LAB RBCCT(LOINC 4.20-5.40 10 6/mcL ) Low RBC 3.94 LAB HGB(LOINC) 12.0-16.0 G/dL Hgb 12.0 LAB HCT(LOINC) 37.0-47.0 % Low Hct 36.4 LAB MCV(LOINC) 80.0-94.0 fL MCV 92.3 LAB MCH(LOINC) 27.0-31.2 pg MCH 30.4 LAB MCHC(LOINC) 33.0-37.0 G/dL Low MCHC 32.9 LAB RDW(LOINC) 11.5-14.5 % RDW 13.8 LAB PLT(LOINC) 130-400 10 3/mcL High Platelet 405 LAB MPV(LOINC) 7.4-10.4 fL Low MPV 6.7 Performed By: #### CBC, ADIFF, ANEU #### [address] [address] #### CMP, GFR #### [address] [address] .AUTO DIFF Collected: 06/13/2018 Status: F Source: [facility] 9:40 AM [facility] REPOSITORY TYPE CODE TESTS RESULT OUT OF REFERENCE UNITS RANGE LAB FRANK(LOINC) 37.0-80.0 % Neutrophil % 57.5 LAB LYM(LOINC) 10.0-50.0 % Lymphocyte % 27.7 LAB MON(LOINC) 1.7-13.0 % Monocyte % 9.5 LAB EO(LOINC) 0.0-7.0 % Eosinophil % 4.3 LAB BAS(LOINC) 0.0-2.5 % Basophil % 1.0 LAB ABLYM(LOIN 0.77-3.85 10 3/mcL C) Lymphocyte, 1.80 Absolute LAB BELGICA(LOINC 0.15-1.00 10 3/mcL ) Monocyte, 0.60 Absolute LAB AEOS(LOINC 0.00-0.40 10 3/mcL ) Eosinophil, 0.30 Absolute LAB ABAS(LOINC 0.00-0.19 10 3/mcL ) Basophil, 0.10 Absolute Performed By: #### CBC, ADIFF, ANEU #### [address] [address] #### CMP, GFR #### [place] [address] .NEUABS Collected: 06/13/2018 Status: F Source: [facility] 9:40 AM [facility] REPOSITORY TYPE CODE TESTS RESULT OUT OF REFERENCE UNITS RANGE LAB ANEU(LOINC) 2.85-6.16 10 3/mcL Neutrophil, 3.60 Absolute Performed By: #### CBC, ADIFF, ANEU #### [place] [id number] #### CMP, GFR #### [place] [address] CMP Collected: 06/13/2018 Status: F Source: [facility] 9:40 AM [facility] REPOSITORY TYPE CODE TESTS RESULT OUT OF REFERENCE UNITS RANGE LAB GLU(LOINC) 80-115 mg/dL Glucose Level 83 LAB NA(LOINC) 136-145 mmol/L Sodium Level 142 LAB K(LOINC) 3.5-5.1 mmol/L Potassium Level 4.7 LAB CL(LOINC) 98-107 mmol/L Chloride 104 LAB CO2(LOINC) 23-31 mmol/L CO2 30 LAB EBAL(LOINC mEq/L ) Electrolyte Balance 8.0 LAB BUN(LOINC) 7-18 mg/dL BUN 16 LAB CRE(LOINC) 0.55-1.02 mg/dL Creatinine Lvl (s) 0.65 LAB BC(LOINC) 7-27 ratio BUN/Creatinine 25 Ratio LAB CA(LOINC) 8.4-10.2 mg/dL Calcium Lvl 9.5 LAB PROT(LOINC 6.4-8.2 G/dL ) Total Protein 7.3 LAB ALB(LOINC) 3.4-4.8 G/dL Albumin Level 3.8 LAB GLB(LOINC) G/dL Globulin 3.5 LAB AG(LOINC) 1.1-2.5 ratio A/G Ratio 1.1 LAB BILT(LOINC 0.2-1.0 mg/dL ) Bili Total 0.5 LAB AP(LOINC) 40-135 U/L Alk Phos High 162 LAB AST(LOINC) 10-40 U/L AST/SGOT 18 LAB ALT(LOINC) 10-35 U/L ALT/SGPT 28 Performed By: #### CBC, ADIFF, ANEU #### [address] [address] #### CMP, GFR #### [address] [address] .GFR Collected: 06/13/2018 Status: F Source: [facility] 9:40 AM [facility] REPOSITORY TYPE CODE TESTS RESULT OUT OF REFERENCE UNITS RANGE LAB GFRAA(LOINC ml/min/1.73 ) sqm GFR 111 Swedish Result Comment: GFR Population mean for , Non- Americans Ages 20-29 = 116 mL/min/1.73 sq.m. Ages 30-39 = 107 mL/min/1.73 sq.m. Ages 40-49 = 99 mL/min/1.73 sq.m. Ages 50-59 = 93 mL/min/1.73 sq.m. Ages 60-69 = 85 mL/min/1.73 sq.m. Ages 70+ = 75 mL/min/1.73 sq.m. Chronic Kidney Disease: Less than 60 mL/min/1.73 square meters End Stage Renal Disease: Less than 15 mL/min/1.73 square meters LAB GFRNO(LOINC) ml/min/1.73sqm GFR Non- 92 Result Comment: GFR Population mean for , Non- Americans Ages 20-29 = 116 mL/min/1.73 sq.m. Ages 30-39 = 107 mL/min/1.73 sq.m. Ages 40-49 = 99 mL/min/1.73 sq.m. Ages 50-59 = 93 mL/min/1.73 sq.m. Ages 60-69 = 85 mL/min/1.73 sq.m. Ages 70+ = 75 mL/min/1.73 sq.m. Chronic Kidney Disease: Less than 60 mL/min/1.73 square meters End Stage Renal Disease: Less than 15 mL/min/1.73 square meters Performed By: #### CBC, ADIFF, ANEU #### [address] [address] #### CMP, GFR #### [address] [address] DISCHARGE INSTRUCTION Observed: 05/19/2018 Status: F Source: [place] 7:10 AM [facility] REPOSITORY [facility] Medical Records Department [address] [place] [address] Instructions for Home/Discharge Instructions 05/18/18 1029 MR#: [id number] Acct: [id number] Name: RADHA LI Rep #: [id number] : 1955 62 From: Todd Raymond PA-C PCP: Eb Iraheta MD Status: ADM IN Discharge Diet: No Restrictions Discharge Activity: May Not Drive May shower in (days): 1 - Turned dressing away from water Ice area for (Minutes): 20 - every hour while awake. Weight Bearing Status: Weight bearing as tolerated Elevate: Operative Extremity Additional Activity Instructions:: Wear elastic stockings for 2 weeks after your surgery. Call your doctor if your incision/area has: Continuous Slow Oozing, Sudden Increased Bleeding, Increased Pain/ Swelling, Increased Redness, Foul Smelling Discharge Call your doctor if you observe: Fever of 101 or Higher, Coldness, Increased Pain, Numbness or Tingling, Change in Color, Calf discomfort, Uncontrolled pain Remove Dressing in (days):: 3 - Okay to remove dressing on May 22, 2018 Additional Instructions: Follow [place] [facility] postop instructions DVT prophylaxis: We will take Xarelto for the first 2 weeks postoperatively. At 2-week visit will switch over to 81 mg aspirin twice daily with food for an additional 2 weeks. Allergies/Adverse Reactions: Allergies balsam mike Allergy (Verified 05/09/18 13:03) Rash formaldehyde Allergy (Verified 05/09/18 13:03) Rash latex Allergy (Verified 05/09/18 13:03) Rash Penicillins [PCN] Allergy (Verified 05/09/18 13:03) Rash Sulfa (Sulfonamide Antibiotics) Allergy (Verified 05/09/18 13:03) Rash Medications to take at Discharge Amitriptyline HCl [Elavil] 25 mg PO QHS 11/22/16 Folic Acid 2 mg PO DAILY 11/22/16 Hydroxychloroquine [Plaquenil] 200 mg PO BIDCM 11/22/16 Methotrexate 17.5 mg PO WE 11/22/16 Multivitamin [Daily Multiple Vitamin] 1 each PO DAILY 11/22/16 Acetaminophen [Tylenol Extra Strength] 1,000 mg PO Q8H PRN #90 tablet 05/19/18 Doxycycline 100 mg PO BID #12 capsule 05/19/18 Oxycodone [Oxyir] 5 - 10 mg PO Q4H PRN PRN 5 Days #60 tablet 05/19/18 Rivaroxaban [Xarelto] 10 mg PO DAILY@0800 #13 tablet 05/19/18 Senna/Docusate Sodium [Senokot-S] 2 tablet PO BID tablet 05/19/18 The following prescriptions were given: Oxycodone [Oxyir] 5 - 10 mg PO Q4H PRN PRN 5 Days #60 tablet PRN Reason: Mod-Severe Pain (4-10/10) Acetaminophen [Tylenol Extra Strength] 1,000 mg PO Q8H PRN #90 tablet Rivaroxaban [Xarelto] 10 mg PO DAILY@0800 #13 tablet Doxycycline 100 mg PO BID #12 capsule Primary Care Physician: Eb Iraheta MD [Primary Care Provider] - Test Results: Test results from this visit will be discussed in further detail at your follow-up appointment, if applicable. Please Follow Up With: Onsite Physical Therapy [place] When: 05/22/18 Please Follow Up With: oTdd Raymond PA-C When: 06/01/18 @ 2:30 pm 05/19/18 0710 <Electronically signed by Todd Raymond PA-C> Date Todd Raymond PA-C CC: Eb Iraheta MD CBC-COMPLETE BLOOD CNT Collected: 05/19/2018 Status: F Source: [place] NO DIFF 5:45 AM [facility] REPOSITORY TYPE CODE TESTS RESULT OUT OF RANGE REFERENCE UNITS LAB L100.1000 4.4-11.0 K/mm3 Normal WBC 7.9 LAB L100.1200 4.2-5.4 M/mm3 Low RBC 2.92 LAB L100.1300 12.0-15.0 g/dl Low HGB 8.9 LAB L100.1400 37-47 % Low HCT 28.1 LAB L100.1500 81-99 fL Normal MCV 96.2 LAB L100.1600 27.0-32.0 pg Normal MCH 30.5 LAB L100.1700 32-36 g/gl Low MCHC 31.7 LAB L100.1810 11.6-14.6 % Normal RDW CV 14.0 LAB L100.1820 35.1-43.9 fl High RDW SD 48.2 LAB L100.1900 150-450 K/mm3 Normal PLT 233 LAB L100.2000 6.2-12.0 fl Normal MPV 8.1 Performed By: #### L100.0500 #### [facility] [address] [place], [address] CBC-COMPLETE BLOOD CNT Collected: 05/18/2018 Status: F Source: [place] NO DIFF 5:20 AM [facility] REPOSITORY TYPE CODE TESTS RESULT OUT OF RANGE REFERENCE UNITS LAB L100.1000 4.4-11.0 K/mm3 Normal WBC 9.4 LAB L100.1200 4.2-5.4 M/mm3 Low RBC 3.14 LAB L100.1300 12.0-15.0 g/dl Low HGB 9.7 LAB L100.1400 37-47 % Low HCT 31.0 LAB L100.1500 81-99 fL Normal MCV 98.7 LAB L100.1600 27.0-32.0 pg Normal MCH 30.9 LAB L100.1700 32-36 g/gl Low MCHC 31.3 LAB L100.1810 11.6-14.6 % Normal RDW CV 13.2 LAB L100.1820 35.1-43.9 fl High RDW SD 45.5 LAB L100.1900 150-450 K/mm3 Normal PLT 263 LAB L100.2000 6.2-12.0 fl Normal MPV 8.3 Performed By: #### L100.0500 #### [facility] [place], [address] BASIC METABOLIC Collected: 05/18/2018 Status: F Source: [place] PROFILE (BMP) 5:20 AM [facility] REPOSITORY TYPE CODE TESTS RESULT OUT OF RANGE REFERENCE UNITS LAB L501.0100 74-106 mg/dL High GLU 144 Result Comment: Fasting Glucose result greater than or equal to 126 mg/dL suggests DIABETES MELLITUS per A.D.A. criteria. Please note revised GLUCOSE reference range effective 2017. LAB L501.1000 7-18 mg/dL Normal BUN 13 LAB L501.1100 0.55-1.02 mg/dL Normal CREAT,SERUM 0.58 Result Comment: The validity of the calculated GFR AND GFRAA in patients over 70 years has not been determined. Clinical correlation is essential. LAB L501.1110 >60 mL/min Normal EST GFR 110 Result Comment: Non- GFR Calc LAB L501.1115 >60 mL/min Normal EST GFR - AA 134 Result Comment: GFR Calc LAB L501.1255 ml/min Normal Estimated CRCL 84.62 LAB L501.1300 10-20 RATIO High BUN/CRE 22.3 LAB L501.2200 8.5-10 mg/dL Low .1 CA 8.2 LAB L501.5300 136-14 mmol/L Normal 5 NA 141 LAB L501.5600 3.5-5. mmol/L Normal 1 K 4.8 LAB L501.5900 98-107 mmol/L Normal CL 107 LAB L501.6100 21.0-3 mmol/L Normal 2.0 CO2 28.0 LAB L501.6200 5-15 Normal GAP 6 Performed By: #### L500.2500 #### [facility] [address] 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 No signs of infection intraoperatively health promotion coordinator: Todd Raymond Type of Anesthesia:: General Anesthesiologist: Ion Person Special Medications: 600 mg clindamycin prior to incision and 2 and half hours after incision, 1 g TXA at incision, 1 g TXA closure, 10 mg Decadron, joint cocktail (5 mg Duramorph, 30 mL of 0.5% Ropivicaine, 1000 units of epinephrine, 30 mg of Toradol) Specimen's removed: 5 total specimens were sent to microbiology Estimated Blood Loss (mL): 200 mL Fluids Replaced: 2000 L crystalloid Description of Procedure: Components used: Femur: Triathlon TS size 4 right femur with 10 mm augments medially and laterally distally and 5 mm augment posterior laterally. Stem 17 x 150 mm fluted stem Tibia: Commerce tibial baseplate size 3 stem, 16 mm x 100 mm fluted stem, size D tibial cone Polyethylene: 19 mm TS [place] X3 polyethylene Procedure: On the date of the procedure patient's right leg was marked in the preoperative area. Patient was taken back to the operating room where there transferred to the table in the supine position. Anesthesia assumed control of the C-spine airway and remained to control throughout the remainder of the procedure. After anesthetic was administered all bony prominences were identified well-padded and a tourniquet was placed on the right upper thigh. Appropriate positioning was done with the assistance of the PA. The right lower semi-was then prepped in a sterile fashion while the surgeon scrubbed. After my engineering assistant and myself scrubbed and reentered the room the right leg was draped in a standard orthopedic fashion. Incision was marked out using the previous incision and a timeout was called. Everyone agreed upon the side, the site, the procedure be performed, patient's identity and antibiotics given. Esmarch bandage was used to exsanguinate the extremity and the leg was flexed. Tourniquet was placed up to 250 mmHg. Incision was taken down through skin subcutaneous tissue fat down to fascia. Appropriate cutaneous flaps were made medially and laterally. Once we identified the previous arthrotomy sharp dissection was used to make the arthrotomy. We did a quadriceps snip proximally. At this time the knee was placed in extension and aggressive synovectomy was performed. We released the medial collateral ligament for appropriate exposure. We then started with a medial gutter synovectomy proceeding to the suprapatellar pouch and finally to the lateral gutter. Once this was completed we flexed the knee up and removed the polyethylene. Once a polyethylene was removed the remainder of the synovectomy was completed. Our attention was then directed towards the femur. Osteotomes were used to break up the bone cement interface as well as a significant cell. In between the cement and bone was noted to be a membrane. An osteotome was placed between the cone and the distal femoral component and it was eventually dislodged from the cement mantle. Once the femur was removed we were able to inspect the distal femur. The cone body was well fixed to the bone at this time we elected to keep the cone body. We then directed our attention to the tibia. Tibia was adequately exposed and starting medially we began to break up the bone cement interface. Once we did this we were able to place osteotomes between the tibial baseplate and tibial cone. We used these osteotomes to dislodge the tibia component. Once this was removed we could then evaluate the tibial cone. Based on the radiographic x-rays and visualization of the tibial, we elected to remove the tibial cone. Should be noted that to remove the implants from the tibial cones took careful attention and extra time is not to cause an intraoperative fracture. We then directed our attention towards the tibia where a pencil-tip bur was used to bur circumferentially around the cone. Once we had burred to circumferentially around the cone using irrigation to try and prevent bone necrosis were able to remove the cone using the cone extraction device. At this time we had to remove cement mantle from both the tibia and the femur. After removing the cement mantle from the tibia are tourniquet time had reached 90 minutes and we elected to place the tourniquet down for the remainder of the bone prep. This was done very carefully and took significant amount of time. After the cement mantle was removed and the tibia we then removed it from the femur using osteotomes and drills. Once the cement was completely removed from both canals we then sequentially reamed both canals. The tibial canal was reamed to 16 mm and the femoral canal was reamed to 17 mm. Tibial canal was reamed for 100 mm stem and the femoral canal was reamed for 150 mm stem. Once the canals were properly prepped we then re-reamed the proximal tibia for a larger cone. We reamed to a size D cone. The D cone trial was impacted into place and a flat tibial cut was made just above this. This was taken down to good bone. Once a cleanup cut was made we then placed the tibial trial component after checking the tibial cut for appropriate cut with the drop gabriel. Once the tibial trial was placed we then prepared the distal femoral bone in keeping in mind that the previous colon was still in place we placed the 2, 10 mm distal femoral augments as was the case with the extracted implants. The posterior lateral 5 mm augment was also placed. At this time we were able to trial. This gave us good patella tracking. We had a balanced knee. Trials were removed at this time. The bone ends were exposed and a bur was used to roughen up the bone ends and make small interdigitation areas. Once we are happy with the appropriate bone prep which we took extra time and attention preparing the bone due to the nature of the loosening and minimal areas of bone contact from the previous cones. 2 batches of Rosy Simplex cement were mixed. The wound was copiously irrigated out with 6 L normal saline under low pressure lavage. Once the cement was ready and irrigation had been completed the bone ends were dried cement was placed on the backside of the tibia and the tibia was impacted into place. Excess cement was removed. Cement was placed on the backside of the femur and it was impacted into place. Excess cement was removed. The knee was placed in extension and excess cement was removed. We placed the knee in extension we used a 16 mm polyethylene. Once the cement had appropriately cured we again trialed and balanced the knee. A 19 mm tibial polyethylene gave us the most balance knee in flexion and extension. The TS polyethylene was opened and impacted into place. Central pin was placed. Wound was copiously irrigated out with normal saline once again. Particular injection was given. The quadriceps snip was repaired with #2 FiberWire. The remainder of the arthrotomy was repaired with #1 Vicryl. Skin was closed with 2-0 Vicryl and final skin closure was done with nylon. Sterile dressing was placed, compressive dressing was placed. Patient was awakened by anesthesia and transferred to PACU for recovery. Postoperative plan: Patient was placed on Xarelto for DVT prophylaxis. Weight-bear as tolerated, activity as tolerated. Follow-up in the office in 2 weeks for wound check. My physician engineering assistant was a vital part of this case. He was important in appropriate retraction during the case, and protection of soft tissues during bony cuts. His intimate knowledge of the case and my steps aided in safe and expedient completion of the procedure as well as appropriate position of the leg during the case. He was also vital in assisting with closure under my direct supervision. It should be noted that during the course of this case based on this being a revision of a revision and with extensive fixation at the previous surgery we did take extra time. We did take extra time positioning the patient, we had to take extra time as noted in the operative report removing the implants to prevent fracture and removing the tibial cone. We also took extra time carefully preparing the bone ends for good cement interdigitation. Overall the case took roughly 3-1/2 hours. Standard total knee revision takes 2-1/2 hours. Grafts/Implants Used: [place] triathlon TS total knee - Complications None - Admit VTE Documentation VTE Present on Admission: No VTE Mechan Device Prophylaxis: SCD's, Thigh High DOMINGO Hose VTE Pharm Prophylaxis ordered?: Yes 05/17/18 1645 <Electronically signed by Manjinder Vogel MD> Date Manjinder Vogel MD CC: Eb Iraheta MD; Manjinder Vogel MD Signed Observed: 05/17/2018 Status: F Source: [place] CULTURE, DEEP WOUND 4:40 PM [facility] REPOSITORY Order Date: 01/05/17 Comments: Suprapatellar Pouch, Right Gram Stain Gram Stain No organisms seen Wound Culture No growth aerobically. Cult, Anaerobic No growth in 5 days. Performed By: #### M100.1500 #### [facility] [address] [facility]. [place], [place], [address] Observed: 05/17/2018 Status: F Source: MATTHEW CULTURE, DEEP WOUND 4:40 PM [facility] REPOSITORY Order Date: 01/05/17 Comments: Tibial Membrane, Right Gram Stain Gram Stain No organisms seen Wound Culture No growth aerobically. Cult, Anaerobic No growth in 5 days. Performed By: #### M100.1500, M100.3880, M600.1900 #### [facility] [address] [facility] [place], [address] AFB Observed: 05/17/2018 Status: P Source: MATTHEW CULT/SMEAR [id number] 4:40 PM [facility] REPOSITORY Comments: Tibial Membrane, Right Is this test to exclude patient from TB Isolation? N AFB Smear/Fluor TESTING PERFORMED AT [facility]. ORIGINAL REPORT ON FILE IN LAB CONTAINS ADDITIONAL TEST SITE INFORMATION. Smear, Acid Fast Tissue Grinding Smear: Negative Performed By: #### M100.1500, M100.3880, M600.1900 #### [facility] [address] [place], [address] Observed: 05/17/2018 Status: P Source: MATTHEW DEL ROSARIO, FUNGUS W/ 4:40 PM [facility] [id number] REPOSITORY Comments: Tibial Membrane, Right Is this test to exclude patient from TB Isolation? N Cu,[id number] TESTING PERFORMED AT [facility]. ORIGINAL REPORT ON FILE IN LAB CONTAINS ADDITIONAL TEST SITE INFORMATION. CUF No yeast or mold isolated after [address] TESTING PERFORMED AT [facility]. ORIGINAL REPORT ON FILE IN LAB CONTAINS ADDITIONAL TEST SITE INFORMATION. Fungus Stain No yeast or mold observed. Performed By: #### M100.1500, M100.3880, M600.1900 #### [place] [facility] [address] [place], [address] Observed: 05/17/2018 Status: F Source: MATTHEW CULTURE, DEEP WOUND 4:40 PM [facility] REPOSITORY Order Date: 01/05/17 Comments: Femoral Membrane, Right Gram Stain Gram Stain No organisms seen Wound Culture No growth aerobically. Cult, Anaerobic No growth in 5 days. Performed By: #### M100.1500 #### [facility] [address] [place], [place], [address] Observed: 05/17/2018 Status: F Source: MATTHEW CULTURE, DEEP WOUND 4:40 PM [facility] REPOSITORY Order Date: 01/05/17 Comments: Tibial Canal, Right Gram Stain Gram Stain No organisms seen Wound Culture No growth aerobically. Cult, Anaerobic No growth in 5 days. Performed By: #### M100.1500 #### [facility] [address] [place], [place], [address] Observed: 05/17/2018 Status: F Source: MATTHEW CULTURE, DEEP WOUND 4:40 PM [facility] REPOSITORY Order Date: 01/05/17 Comments: Femoral Canal, Right Gram Stain Gram Stain No organisms seen Wound Culture No growth aerobically. Cult, Anaerobic No growth in 5 days. Performed By: #### M100.1500 #### [facility] [address] [place], [place], [address] AFB Observed: 05/17/2018 Status: P Source: MATTHEW CULT/SMEAR [id number] 4:40 PM [facility] REPOSITORY Comments: Suprapatellar Pouch, Right Is this test to exclude patient from TB Isolation? N AFB Smear/Fluor TESTING PERFORMED AT [facility]. ORIGINAL REPORT ON FILE IN LAB CONTAINS ADDITIONAL TEST SITE INFORMATION. Smear, Acid Fast Tissue Grinding Smear: Negative Performed By: #### M100.3880, M600.1900 #### [place] [facility] [address] [place], [address] Observed: 05/17/2018 Status: P Source: MATTHEW CULTURE, FUNGUS W/ 4:40 PM [facility] [id number] REPOSITORY Comments: Suprapatellar Pouch, Right Is this test to exclude patient from TB Isolation? Cheri [id number] TESTING PERFORMED AT [facility]. ORIGINAL REPORT ON FILE IN LAB CONTAINS ADDITIONAL TEST SITE INFORMATION. CUF No yeast or mold isolated after [address] TESTING PERFORMED AT [facility]. ORIGINAL REPORT ON FILE IN LAB CONTAINS ADDITIONAL TEST SITE INFORMATION. Fungus Stain No yeast or mold observed. Performed By: #### M100.3880, M600.1900 #### [facility] [address] [place], [address] Observed: 05/17/2018 Status: F Source: MATTHEW CULTURE, FUNGUS W/ 4:40 PM [facility] [id number] REPOSITORY Comments: Femoral Membrane, Right Is this test to exclude patient from TB Isolation? Cheri [id number] TESTING PERFORMED AT [facility]. ORIGINAL REPORT ON FILE IN LAB CONTAINS ADDITIONAL TEST SITE INFORMATION. CUF No yeast or mold isolated after [address] TESTING PERFORMED AT [facility]. ORIGINAL REPORT ON FILE IN LAB CONTAINS ADDITIONAL TEST SITE INFORMATION. Fungus Stain No yeast or mold observed. Performed By: #### M600.1900 #### [facility] [address] [place], [address] AFB Observed: 05/17/2018 Status: P Source: MATTHEW CULT/SMEAR [id number] 4:40 PM [facility] REPOSITORY Comments: Femoral Membrane, Right AFB Smear/Fluor TESTING PERFORMED AT [facility]. ORIGINAL REPORT ON FILE IN LAB CONTAINS ADDITIONAL TEST SITE INFORMATION. Smear, Acid Fast Tissue Grinding Smear: Negative Performed By: #### M100.3880 #### [facility] [address] [place], [place], [address] AFB Observed: 05/17/2018 Status: P Source: MATTHEW CULT/SMEAR [id number] 4:40 PM [facility] REPOSITORY Comments: Tibial Canal, Right Is this test to exclude patient from TB Isolation? N AFB Smear/Fluor TESTING PERFORMED AT [facility]. ORIGINAL REPORT ON FILE IN LAB CONTAINS ADDITIONAL TEST SITE INFORMATION. Smear, Acid Fast Tissue Grinding Smear: Negative Performed By: #### M100.3880, M600.1900 #### [facility] [address] [place], [address] Observed: 05/17/2018 Status: P Source: MATTHEW CULTURE, FUNGUS W/ 4:40 PM [facility] [id number] REPOSITORY Comments: Tibial Canal, Right Is this test to exclude patient from TB Isolation? N Cu,[id number] TESTING PERFORMED AT [facility]. ORIGINAL REPORT ON FILE IN LAB CONTAINS ADDITIONAL TEST SITE INFORMATION. CUF No yeast or mold isolated after [address] TESTING PERFORMED AT [facility]. ORIGINAL REPORT ON FILE IN LAB CONTAINS ADDITIONAL TEST SITE INFORMATION. Fungus Stain No yeast or mold observed. Performed By: #### M100.3880, M600.1900 #### [facility] [address] [place] [address]. [place], [place], [address] AFB Observed: 05/17/2018 Status: P Source: MATTHEW CULT/SMEAR [id number] 4:40 PM [facility] REPOSITORY Comments: Femoral Canal, Right Is this test to exclude patient from TB Isolation? N AFB Smear/Fluor TESTING PERFORMED AT [facility]. ORIGINAL REPORT ON FILE IN LAB CONTAINS ADDITIONAL TEST SITE INFORMATION. Smear, Acid Fast Tissue Grinding Smear: Negative Performed By: #### M100.3880, M600.1900 #### [facility] [address] [place] [address]. [place], [address] Observed: 05/17/2018 Status: P Source: MATTHEW CULTURE, FUNGUS W/ 4:40 PM [facility] [id number] REPOSITORY Comments: Femoral Canal, Right Is this test to exclude patient from TB Isolation? N Cu,[id number] TESTING PERFORMED AT [facility]. ORIGINAL REPORT ON FILE IN LAB CONTAINS ADDITIONAL TEST SITE INFORMATION. CUF No yeast or mold isolated after [address] TESTING PERFORMED AT [facility]. ORIGINAL REPORT ON FILE IN LAB CONTAINS ADDITIONAL TEST SITE INFORMATION. Fungus Stain No yeast or mold observed. Performed By: #### M100.3880, M600.1900 #### [facility] [address] [place] [address]. [place], [address] KNEE 1 OR 2 VIEWS Observed: 05/17/2018 Status: F Source: HARVEY 4:28 PM [facility] REPOSITORY [facility] Imaging Services [address] [place] [address] Knee 1 or 2 Views MR#: [id number] Acct: [id number] Name: RADHA LI Rep #: [id number] : 1955 F 62 From: Florentin Zhao DO PCP: Eb Iraheta MD Status: ADM IN Study: Knee 1 or 2 Views Date of Exam: 05/17/18 Exam# [id number] Ordering Dr: Manjinder Vogel MD STUDY: X-RAY - RIGHT KNEE REASON FOR EXAM: Female, 62 years old. Postop revision of knee replacement. TECHNIQUE: 4 view(s) of the knee. COMPARISON: Right knee, December 01, 2016. FINDINGS: There is been surgical revision of the right total knee arthroplasty. The current prosthesis has a longer anchoring shafts. There is no fracture or loosening from the underlying bone. Air is seen in the anterior soft tissues. RAD/Knee 1 or 2 Views IMPRESSION: Surgical revision of right total knee arthroplasty. Electronically Signed: Florentin Zhao DO at 21:39 EST Tel [phone], Service support , CC: Eb Iraheta MD; Manjinder Vogel MD Substitute School Nurse: Signed 12 LEAD ELECTROCARDIOGRAM Observed: 05/12/2018 Status: F Source: HARVEY 2:50 PM [facility] REPOSITORY [facility] Cardiovascular Services [address] [place] [address] EKG - [facility] 05/09/18 1326 MR#: [id number] Acct: [id number] Name: RADHA LI Rep #: [id number] : 1955 62 From: Anson Nguyen MD Attending Dr: Manjinder Vogel MD Status: PRE IN Ordering Dr: Manjinder Vogel MD Date: 05/09/18 Location: [facility] Sex: F C Admitted: Test Reason : Blood Pressure : / mmHG Vent. Rate : 077 BPM Atrial Rate : 077 BPM P-R Int : 158 ms QRS Dur : 090 ms QT Int : 398 ms P-R-T Axes : 054 060 044 degrees QTc Int : 450 ms Normal sinus rhythm Normal ECG Confirmed by ANSON NGUYEN MD ([id number]), assistant editor AMELIA IRAHETA ([id number]) on 05/12/2018 2:49:52 PM Referred By: Manjinder Vogel Confirmed By:ANSON NGUYEN MD 05/12/18 1449 Date Anson Nguyen MD CC: Eb Iraheta MD; Manjinder Vogel MD Date Dictated: 05/09/181325 Date Transcribed: 05/09/181325 Substitute School Nurse: Signed CBC W/DIFF, AUTOMATED Collected: 05/09/2018 Status: F Source: MATTHEW 1:40 PM [facility] REPOSITORY TYPE CODE TESTS RESULT OUT OF RANGE REFERENCE UNITS LAB L100.1000 4.4-11.0 K/mm3 Normal WBC 6.1 LAB L100.1200 4.2-5.4 M/mm3 Normal RBC 4.30 LAB L100.1300 12.0-15.0 g/dl Normal HGB 13.1 LAB L100.1400 37-47 % Normal HCT 41.4 LAB L100.1500 81-99 fL Normal MCV 96.3 LAB L100.1600 27.0-32.0 pg Normal MCH 30.5 LAB L100.1700 32-36 g/gl Low MCHC 31.6 LAB L100.1810 11.6-14.6 % Normal RDW CV 13.6 LAB L100.1820 35.1-43.9 fl High RDW SD 46.4 LAB L100.1900 150-450 K/mm3 Normal PLT 270 LAB L100.2000 6.2-12.0 fl Normal MPV 8.6 LAB L100.2100 47-70 % Normal NEUT% 56.8 LAB L100.2200 19-41 % Normal LY% 28.9 LAB L100.2300 0-10 % Normal MONO% 9.0 LAB L100.2400 0-5 % Normal EO% 4.8 LAB L100.2500 0-1 % Normal BASO% 0.5 LAB L100.2550 0.0-0.9 % Normal IM GRAN % 0.000 Result Comment: IG% - Immature Granulocytes (promyelocytes, myelocytes and metamyelocytes) > 1% indicates that a LEFT SHIFT is Present. LAB L100.2620 2.0-7.7 X10 3/uL Normal Absolute Neut 3.5 LAB L100.2720 0.83-4.51 X10 3/ul Normal Absolute Lymph 1.76 Performed By: #### L100.0100 #### [facility] [address] [place], [address] BASIC METABOLIC Collected: 05/09/2018 Status: F Source: MATTHEW PROFILE (BMP) 1:40 PM [facility] REPOSITORY TYPE CODE TESTS RESULT OUT OF RANGE REFERENCE UNITS LAB L501.0100 74-106 mg/dL Normal GLU 91 Result Comment: Please note revised GLUCOSE reference range effective 2017. LAB L501.1000 7-18 mg/dL Normal BUN 17 LAB L501.1100 0.55-1.02 mg/dL Normal CREAT,SERUM 0.76 Result Comment: The validity of the calculated GFR AND GFRAA in patients over 70 years has not been determined. Clinical correlation is essential. LAB L501.1110 >60 mL/min Normal EST GFR 81 Result Comment: Non- GFR Calc LAB L501.1115 >60 mL/min Normal EST GFR - AA 98 Result Comment: GFR Calc LAB L501.1255 ml/min Normal Estimated CRCL 64.58 LAB L501.1300 10-20 RATIO High BUN/CRE 22.3 LAB L501.2200 8.5-10 mg/dL Normal .1 CA 8.8 LAB L501.5300 136-14 mmol/L Normal 5 NA 142 LAB L501.5600 3.5-5. mmol/L Normal 1 K 3.9 LAB L501.5900 98-107 mmol/L High CL 108 LAB L501.6100 21.0-3 mmol/L Normal 2.0 CO2 28.0 LAB L501.6200 5-15 Normal GAP 6 Performed By: #### L500.2500 #### [facility] [address] [facility] [place], [address] Observed: 05/09/2018 Status: F Source: MATTHEW MRSA/SAID SCREEN 1:40 PM [facility] REPOSITORY MRSA/SAID SCRN S. AUREUS S. aureus Negative MRSA MRSA Negative Performed By: #### M100.651 #### [facility] [address] [facility] [place], [address] HISTORY AND PHYSICAL Observed: 05/05/2018 Status: F Source: MATTHEW EXAM 10:22 PM [facility] Medical Records Department [address] [place] [address] History and Physical 05/05/182221 MR#: [id number] Acct: [id number] Name: RADHA LI Rep #: [id number] : 1955 62 From: Todd Raymond PA-C PCP: Eb Iraheta MD Status: PRE IN Y Location: [facility] History and Physical DATE OF SURGERY: 05/17/2018 SCHEDULED PROCEDURE: Revision Right Total Knee Arthroplasty HISTORY OF PRESENT ILLNESS: This is a 62-year-old female who has been having increased pain for the past 5-6 months. Patient initially underwent a right total knee arthroplasty in May 2011. She had a manipulation of the right knee in 2011. She denied any infections postoperatively. X-ray showed progressive loosening with the right knee components. Patient underwent a revision right total knee arthroplasty on December 01, 2016. Began having increased pain approximately 6 months ago. Patient had initial aspiration which was questionable for infection. Patient had second aspiration and lab work which was negative for infection. Lab work on March 09, 2018 showed an ESR of 14 and CRP 6.58. Patient continues to have pain which is intermittent, dull, and sore. Pain is increased going up and down stairs and sitting. She has difficult time with activities of daily living including walking her dog, housework, and shopping. Patient feels unsafe going up and down stairs. Patient has been through formal physical therapy with no relief in symptoms. She has tried oral medications with no relief in symptoms. Patient has a medical history pertinent for psoriasis and rheumatoid arthritis. We have obtain surgical clearance from patient's primary care physician. Patient currently denies chest pain, shortness of breath, fevers chills, recent infections. Recent x-rays do show lucencies around the components. After failing conservative measures and discussing treatment options with Dr. Manjinder Vogel, the patient does wish to proceed with a revision right total knee arthroplasty. REVIEW OF SYSTEMS: ROS: Const: Reports weight change and vision problems, but denies anorexia and fever,hard of hearing . Eyes: Reports a recent change in visual acuity. CV: Denies heart murmur, chest pain, irregular heartbeat and peripheral vascular disease. Resp: Denies asthma, cough, pneumonia, sleep apnea, SOB, tuberculosis and wheezing. GI: Reports constipation and heartburn, but denies diarrhea, nausea, bloody stools and vomiting, and difficulty swallowing. : Genital: reports dysmenorrhea. Urinary: denies incontinence. Musculo: Reports leg swelling and trouble walking, but denies weakness and limp. Skin: Denies Raynaud's, history of shingles and tattoo. Neuro: Reports numbness/tingling but denies ambulatory dysfunction, dizziness and tremor. Psych: Reports stress, but denies anxiety, depression, insomnia and mental illness. Otf/Lymph: Reports anemia, but denies bleeding/bruising tendency and past transfusion. Reviewed, no changes. 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 COATES Carpal Tunnel - [place]/1990/[facility]/DR. RANDOLPH [place]/1995/[facility]UL[facility] REDD/ RT TKR - (05/2011) DR. COATES Manipulation RT Knee - (08/2011) DR. COATES Back - (2013) Spinal Cord Stimulation - 08/23--IMPLANTED 08/30--REMOVED RT TKR Revision - (12/01/2016) SAW@[facility] Shoulder Replacement LT - Dr. Vogel 12-26-17 Spinal Cord Stimulator Placed - (10/2017) Anesthesia Complications: Anesthesia Complications - 1995 Trouble Waking Up Assistive Devices: Glasses Reviewed, no changes. 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 Personal Habits: Cigarette Use: Former.Alcohol: Occasionally.Drug Use: Denies Use.Enjoy Exercising: Daily. Reviewed, no changes. VITALS: Ht: 62 Wt: 184lb Wt k.462 BMI: 31.6 BP: 112/70 Pulse: 68 Resp: 08972 ALLERGIES: PCN Sulfa Formaldehyde Fragrance - ??? MEDICATIONS: Amitriptyline HCL 25 mg 1 tab PO qhs, Folic Acid 1 mg 2 tabs PO once daily, Plaquenil 200 mg 1 tab PO bid, Methotrexate 2.5 mg 7 tabs by mouth once weekly, Multivitamin 1 tab PO daily PRE-OP EXAM: General appearance:NORMAL Other: Eyes: Conjunctivae and lids: NORMAL Pupils: ERR Ears, Nose, Mouth, and Throat: NORMAL Other: Inspection of lips, teeth and gums: NORMAL Other: Neck: Examination of neck: no masses noted. Respiratory: Assessment of respiratory effort: NORMAL Other: Auscultation of lungs: clear to auscultation no wheezes, rhonchi or rales. Cardiovascular: Auscultation of heart: regular rate and rhythm, no murmurs, gallops or rubs. Exam of carotid arteries: NORMAL Other: Gastrointestinal: Exam of abdomen: soft, nontender, nondistended bowel sounds present. PHYSICAL EXAMINATION: Right knee is cool to touch without erythema. Previous incision is well-healed. Patient's range of motion is 0 of extension to 110 flexion. Patient walks without a limp in gait. She does have pain when walking. Sensation intact to light touch. Neurovascularly intact. IMAGING STUDIES: X-rays of the right knee on February 20, 2018 does reveal progressive lucencies around the cement mantle and implant particularly over the medial tibia. There is also lucencies at the tip of the femoral stem. IMPRESSION: 1. Painful right total knee with loosening 2. Rheumatoid arthritis 3. Psoriasis 4. History of headaches/migraines PLAN: Dr. Manjinder Vogel did discuss and review with the patient all treatment options including surgical versus nonsurgical options. Patient does wish to proceed with the above-stated procedure. Potential risks, benefits, and complications of the procedure were discussed in detail including but not limited to , infection, nerve and blood vessel damage, persistent pain, numbness, tingling, paresthesias, blood clot, pulmonary embolism, and requirement for possible further surgery. The patient expressed full understanding and has no further questions for the doctor. Patient does agree to proceed with the above-stated procedure and has signed the surgery consent form. This dictation was created using voice recognition software. Phonetic and/or grammatical errors may exist.. ___ I have re-examined the patient. There are no clinical changes since date of exam. ___ See progress notes for changes. ___ Dictated on admission Date: Time: Signature: 05/05/18 2222 <Electronically signed by Todd Raymond PA-C> Date Todd Raymond PA-C Cosigner Signature: Date (if applicable) CC: Eb Iraheta MD; Todd ANGEL Signed CBC Collected: 03/17/2018 Status: F Source: [facility] 12:26 PM [facility] REPOSITORY TYPE CODE TESTS RESULT OUT OF REFERENCE UNITS RANGE LAB WBC(LOINC) 4.60-10.80 10 3/mcL WBC 6.60 LAB RBCCT(LOINC 4.20-5.40 10 6/mcL ) RBC 4.51 LAB HGB(LOINC) 12.0-16.0 G/dL Hgb 13.7 LAB HCT(LOINC) 37.0-47.0 % Hct 42.2 LAB MCV(LOINC) 80.0-94.0 fL MCV 93.5 LAB MCH(LOINC) 27.0-31.2 pg MCH 30.4 LAB MCHC(LOINC) 33.0-37.0 G/dL Low MCHC 32.5 LAB RDW(LOINC) 11.5-14.5 % RDW 14.0 LAB PLT(LOINC) 130-400 10 3/mcL Platelet 333 LAB MPV(LOINC) 7.4-10.4 fL Low MPV 6.8 Performed By: #### WILLIAM WILLS ANEU #### [place] [id number] #### CMP, GFR #### [place] [address] .AUTO DIFF Collected: 03/17/2018 Status: F Source: [facility] 12:26 [facility] REPOSITORY TYPE CODE TESTS RESULT OUT OF REFERENCE UNITS RANGE LAB FRANK(LOINC) 37.0-80.0 % Neutrophil % 56.6 LAB LYM(LOINC) 10.0-50.0 % Lymphocyte % 31.3 LAB MON(LOINC) 1.7-13.0 % Monocyte % 8.2 LAB EO(LOINC) 0.0-7.0 % Eosinophil % 3.1 LAB BAS(LOINC) 0.0-2.5 % Basophil % 0.8 LAB ABLYM(LOIN 0.77-3.85 10 3/mcL C) Lymphocyte, 2.10 Absolute LAB BELGICA(LOINC 0.15-1.00 10 3/mcL ) Monocyte, 0.50 Absolute LAB AEOS(LOINC 0.00-0.40 10 3/mcL ) Eosinophil, 0.20 Absolute LAB ABAS(LOINC 0.00-0.19 10 3/mcL ) Basophil, 0.10 Absolute Performed By: #### CBC, ADIFF, ANEU #### [place] [address] #### CMP, GFR #### [place] [address] .NEUABS Collected: 03/17/2018 Status: F Source: [facility] 12:26 [facility] REPOSITORY TYPE CODE TESTS RESULT OUT OF REFERENCE UNITS RANGE LAB ANEU(LOINC) 2.85-6.16 10 3/mcL Neutrophil, 3.70 Absolute Performed By: #### CBC, ADIFF, ANEU #### [place] [address] #### CMP, GFR #### [place] [address] CMP Collected: 03/17/2018 Status: F Source: [facility] 12:26 [facility] REPOSITORY TYPE CODE TESTS RESULT OUT OF REFERENCE UNITS RANGE LAB GLU(LOINC) 80-115 mg/dL Glucose Level 88 LAB NA(LOINC) 136-145 mmol/L Sodium Level 140 LAB K(LOINC) 3.5-5.1 mmol/L Potassium Level 4.3 LAB CL(LOINC) 98-107 mmol/L Chloride 102 LAB CO2(LOINC) 23-31 mmol/L CO2 29 LAB EBAL(LOINC mEq/L ) Electrolyte Balance 9.0 LAB BUN(LOINC) 7-18 mg/dL BUN 17 LAB CRE(LOINC) 0.55-1.02 mg/dL Creatinine Lvl (s) 0.77 LAB BC(LOINC) 7-27 ratio BUN/Creatinine 22 Ratio LAB CA(LOINC) 8.4-10.2 mg/dL Calcium Lvl 9.5 LAB PROT(LOINC 6.4-8.2 G/dL ) Total Protein 7.1 LAB ALB(LOINC) 3.4-4.8 G/dL Albumin Level 4.0 LAB GLB(LOINC) G/dL Globulin 3.1 LAB AG(LOINC) 1.1-2.5 ratio A/G Ratio 1.3 LAB BILT(LOINC 0.2-1.0 mg/dL ) Bili Total 0.6 LAB AP(LOINC) 40-135 U/L Alk Phos 94 LAB AST(LOINC) 10-40 U/L AST/SGOT 22 LAB ALT(LOINC) 10-35 U/L ALT/SGPT 27 Performed By: #### CBC, ADIFF, ANEU #### [address] [address] #### CMP, GFR #### [place] [address] .GFR Collected: 03/17/2018 Status: F Source: [facility] 12:26 [facility] REPOSIT[facility] TYPE CODE TESTS RESULT OUT OF REFERENCE UNITS RANGE LAB GFRAA(LOINC ml/min/1.73 ) sqm GFR 91 Swedish Result Comment: GFR Population mean for , Non- Americans Ages 20-29 = 116 mL/min/1.73 sq.m. Ages 30-39 = 107 mL/min/1.73 sq.m. Ages 40-49 = 99 mL/min/1.73 sq.m. Ages 50-59 = 93 mL/min/1.73 sq.m. Ages 60-69 = 85 mL/min/1.73 sq.m. Ages 70+ = 75 mL/min/1.73 sq.m. Chronic Kidney Disease: Less than 60 mL/min/1.73 square meters End Stage Renal Disease: Less than 15 mL/min/1.73 square meters LAB GFRNO(LOINC) ml/min/1.73sqm GFR Non- 75 Result Comment: GFR Population mean for , Non- Americans Ages 20-29 = 116 mL/min/1.73 sq.m. Ages 30-39 = 107 mL/min/1.73 sq.m. Ages 40-49 = 99 mL/min/1.73 sq.m. Ages 50-59 = 93 mL/min/1.73 sq.m. Ages 60-69 = 85 mL/min/1.73 sq.m. Ages 70+ = 75 mL/min/1.73 sq.m. Chronic Kidney Disease: Less than 60 mL/min/1.73 square meters End Stage Renal Disease: Less than 15 mL/min/1.73 square meters Performed By: #### CBC, ADIFF, ANEU #### [address] [address] #### CMP, GFR #### [address] [address] CBC W/DIFF, AUTOMATED Collected: 03/09/2018 Status: F Source: MATTHEW 2:18 PM [facility] REPOSITORY TYPE CODE TESTS RESULT OUT OF RANGE REFERENCE UNITS LAB L100.1000 4.4-11.0 K/mm3 Normal WBC 6.4 LAB L100.1200 4.2-5.4 M/mm3 Normal RBC 4.31 LAB L100.1300 12.0-15.0 g/dl Normal HGB 13.1 LAB L100.1400 37-47 % Normal HCT 41.6 LAB L100.1500 81-99 fL Normal MCV 96.5 LAB L100.1600 27.0-32.0 pg Normal MCH 30.4 LAB L100.1700 32-36 g/gl Low MCHC 31.5 LAB L100.1810 11.6-14.6 % Normal RDW CV 13.8 LAB L100.1820 35.1-43.9 fl High RDW SD 48.3 LAB L100.1900 150-450 K/mm3 Normal PLT 294 LAB L100.2000 6.2-12.0 fl Normal MPV 8.7 LAB L100.2100 47-70 % Normal NEUT% 55.3 LAB L100.2200 19-41 % Normal LY% 33.5 LAB L100.2300 0-10 % Normal MONO% 6.6 LAB L100.2400 0-5 % Normal EO% 3.9 LAB L100.2500 0-1 % Normal BASO% 0.5 LAB L100.2550 0.0-0.9 % Normal IM GRAN % 0.200 Result Comment: IG% - Immature Granulocytes (promyelocytes, myelocytes and metamyelocytes) > 1% indicates that a LEFT SHIFT is Present. LAB L100.2620 2.0-7.7 X10 3/uL Normal Absolute Neut 3.5 LAB L100.2720 0.83-4.51 X10 3/ul Normal Absolute Lymph 2.13 Performed By: #### L100.0100, L101.9900 #### [facility] [address] [place], [place], [id number] ERYTHROCYTE SED RATE Collected: 03/09/2018 Status: F Source: HARVEY 2:18 PM [facility] REPOSITORY TYPE CODE TESTS RESULT OUT OF RANGE REFERENCE UNITS LAB L102.0000 0-30 mm/hr Normal SED RATE 14 Performed By: #### L100.0100, L101.9900 #### [facility] [address] [place], [place], [id number] CRP Collected: 03/09/2018 Status: F Source: HARVEY 2:18 PM [facility] REPOSITORY TYPE CODE TESTS RESULT OUT OF RANGE REFERENCE UNITS LAB L501.6710 0.0-3.0 mg/L High 6.58 C-REACTIVE PROT Result Comment: C-Reactive Protein (CRP) provides useful information for the diagnosis, therapy and monitoring of inflammatory processes and associated diseases. For the evaluation of Relative Risk for Cardiovascular Disease, a High Sensitivity CRP (HSCRP) should be ordered. Performed By: #### L501.6710 #### [facility] [address] [place], [place], [id number] Observed: 03/09/2018 Status: F Source: HARVEY CULTURE, BODY FLUID 1:45 PM [facility] REPOSITORY List Antibiotics Last 48 Hours? N List Antibiotics to be Started? N Gram Stain Centrifuged Specimen? Unable to centrifuge specimen due to insufficient volume. Gram Stain 4+ Red Blood Cells Rare White Blood Cells No organisms seen Body Fluid Cult NO GROWTH IN 14 DAYS Cult, Anaerobic No growth in 5 days. Performed By: #### M100.1300 #### [facility] [address] [place], [place], [address] SYNOVIAL FLUID RBC, Collected: 03/09/2018 Status: C Source: MATTHEW WBC AND DIFF 1:45 PM [facility] REPOSITORY TYPE CODE TESTS RESULT OUT OF RANGE REFERENCE UNITS LAB L200.5050 0.000-0.000 10 3 uL High SYN Tot 0.[address] Result Comment: This is the Total Number of Nucleated Cell Types in the Body Fluid. LAB L200.5100 0 10 6/uL High 0.245 SYNOVIAL RBC LAB L200.5200 0.000-0 10 3uL High .002 SYNOVIAL WBC 0.3240 LAB L200.5260 % SYBF 51.5 Normal PMN WBC% LAB L200.5270 10 3/ul SYBF 0.167 Normal PMN WBC# LAB L200.5280 % SYBF 48.5 Normal [place] WBC% LAB L200.5800 PATH Normal COM/SYFL Reviewed Result Comment: Negative for malignant cells. Bloody specimen. Claudio Abdul M.D. 03/10/18 AMENDED REPORT 03/10/18 1515 PATH COM/SYFL previously reported as: May follow LAB L200.5300 0-25 % High NEUTROPHIL 28 LAB L200.5400 % LYMPH Normal 48 LAB L200.5500 % MONO Normal 21 LAB L200.5700 % OTHER Normal CELL /SYN 3 LAB L200.4600 SYNOVIAL Normal SOURCE R KNEE LAB L200.4900 Pale Yellow SYNOVIAL Normal COLOR Bloody LAB L200.5000 CLEAR SYNOVIAL Normal BRITTA. Hazy Performed By: #### L200.0400 #### [facility] [address] [place], [address] Observed: 03/09/2018 Status: F Source: MATTHEW CULTURE, FUNGUS 8482 1:45 PM [facility] REPOSITORY Cu,[id number] TESTING PERFORMED AT [facility]. ORIGINAL REPORT ON FILE IN LAB CONTAINS ADDITIONAL TEST SITE INFORMATION. CUF No yeast or mold isolated after 4 weeks. Performed By: #### M600.2000 #### [facility] [address] [place] [address] Mary. REBECCA Castro, [address] AF[employer] Observed: 03/09/2018 Status: F Source: MATTHEW CULT/SMEAR [id number] 1:45 PM [facility] REPOSITORY AFB Smear/Fluor TESTING PERFORMED AT [facility]. ORIGINAL REPORT ON FILE IN LAB CONTAINS ADDITIONAL TEST SITE INFORMATION. Smear, Acid Fast NO ACID-FAST BACILLI OBSERVED ON SMEAR. AFB Cult TESTING PERFORMED AT [facility]. ORIGINAL REPORT ON FILE IN LAB CONTAINS ADDITIONAL TEST SITE INFORMATION. Culture, Acid Fast NO ACID-FAST BACILLI ISOLATED AFTER 6 WEEKS. Performed By: #### M100.3880 #### [facility] [address] [place], [place], [id number] SYNOVIAL FLUID RBC, Collected: 02/20/2018 Status: C Source: MATTHEW WBC AND DIFF 12:00 AM [facility] REPOSITORY TYPE CODE TESTS RESULT OUT OF RANGE REFERENCE UNITS LAB L200.5050 0.000-0.000 10 3 uL High SYN Tot 0.[address] Result Comment: This is the Total Number of Nucleated Cell Types in the Body Fluid. LAB L200.5100 0 10 6/uL High 0.094 SYNOVIAL RBC LAB L200.5200 0.000-0 10 3uL High .002 SYNOVIAL WBC 0.4780 LAB L200.5260 % SYBF 52.7 Normal PMN WBC% LAB L200.5270 10 3/ul SYBF 0.252 Normal PMN WBC# LAB L200.5280 % SYBF 47.3 Normal MN WBC% LAB L200.5800 PATH Normal COM/SYFL Reviewed Result Comment: Negative for malignant cells. Bloody specimen. Claudio Abdul M.D. 02/21/18 AMENDED REPORT 02/21/18 1337 PATH COM/SYFL previously reported as: May follow LAB L200.5300 0-25 % High NEUTROPHIL 49 LAB L200.5400 % LYMPH Normal 46 LAB L200.5500 % MONO Normal 5 LAB L200.4600 SYNOVIAL Normal SOURCE R KNEE LAB L200.4800 HIGH Normal VISCOSITY/SYFL Sl. Viscous LAB L200.4900 Pale Yellow SYNOVIAL Normal COLOR Red LAB L200.5000 CLEAR SYNOVIAL Normal BRITTA. Turbid Performed By: #### L200.0400 #### [facility] [address] [place], [address] Observed: 02/20/2018 Status: F Source: MAT[place]W CULTURE, BODY FLUID 12:00 AM [facility] REPOSITORY List Antibiotics Last 48 Hours? UNK List Antibiotics to be Started? UNK Gram Stain Centrifuged Specimen? Culture performed on centrifuged specimen Gram Stain 3+ Red Blood Cells No organisms seen Body Fluid Cult Growth in broth medium only Clinical correlation necessary, Possible skin contamination. ORGANISM 1: Staphylococcus capitis Amount Growth Very Rare Staphylococcus capitis: REACTION Benzylpenicillin NF >=0.5 R Cefoxitin *NF - Clindamycin $$ <=0.25 S Inducable Clindamycin Resistan - Erythromycin $ 0.5 S Gentamicin $ <=0.5 S Levofloxacin $ 0.5 S Oxacillin NF <=0.25 S Tigecycline $$$$ <=0.12 S Rifampin $$ <=0.5 S Tetracycline NF <=1 S Vancomycin $ <=0.5 S (NF) indicates non-formulary drug at [facility]. Approval by Infectious Disease Specialist required before non-formulary drugs may be ordered and/or dispensed. * CLSI guidelines does not recommend testing of cephalosporins. This interpretation is deduced from Beta-lactam/penicillin results. Cult, Anaerobic No growth in 5 days. Performed By: #### M100.1300 #### [facility] [address] [place], [address] Observed: 02/20/2018 Status: F Source: HARVEY ACID FAST BACT 12:00 AM [facility] CULT/SM REPOSITORY AFB Smear/Fluor TESTING PERFORMED AT [facility]. ORIGINAL REPORT ON FILE IN LAB CONTAINS ADDITIONAL TEST SITE INFORMATION. Smear, Acid Fast NO ACID-FAST BACILLI OBSERVED ON SMEAR. AFB Cult [facility]. ORIGINAL REPORT ON FILE IN LAB CONTAINS ADDITIONAL TEST SITE INFORMATION. Culture, Acid Fast NO ACID-FAST BACILLI ISOLATED AFTER 6 WEEKS. Performed By: #### M300.1000, M6.1999 #### [facility] [address] [place], [address] Observed: 02/20/2018 Status: F Source: MATTHEW DEL ROSARIO, FUNGUS 8482 12:00 AM [facility] REPOSITORY Cu,[id number] TESTING PERFORMED AT [facility]. ORIGINAL REPORT ON FILE IN LAB CONTAINS ADDITIONAL TEST SITE INFORMATION. CUF No yeast or mold isolated after 4 weeks. Performed By: #### M300.1000, .1999 #### [facility] [address] [place], [address] .GFR Collected: 12/19/2017 Status: F Source: [place] 7:27 AM [facility] REPOSITORY TYPE CODE TESTS RESULT OUT OF REFERENCE UNITS RANGE LAB GFRAA(LOINC ml/min/1.73 ) sqm GFR >60 Swedish Result Comment: GFR Population mean for , Non- Americans Ages 20-29 = 116 mL/min/1.73 sq.m. Ages 30-39 = 107 mL/min/1.73 sq.m. Ages 40-49 = 99 mL/min/1.73 sq.m. Ages 50-59 = 93 mL/min/1.73 sq.m. Ages 60-69 = 85 mL/min/1.73 sq.m. Ages 70+ = 75 mL/min/1.73 sq.m. Chronic Kidney Disease: Less than 60 mL/min/1.73 square meters End Stage Renal Disease: Less than 15 mL/min/1.73 square meters LAB GFRNO(LOINC) ml/min/1.73sqm GFR Non- >60 Result Comment: GFR Population mean for , Non- Americans Ages 20-29 = 116 mL/min/1.73 sq.m. Ages 30-39 = 107 mL/min/1.73 sq.m. Ages 40-49 = 99 mL/min/1.73 sq.m. Ages 50-59 = 93 mL/min/1.73 sq.m. Ages 60-69 = 85 mL/min/1.73 sq.m. Ages 70+ = 75 mL/min/1.73 sq.m. Chronic Kidney Disease: Less than 60 mL/min/1.73 square meters End Stage Renal Disease: Less than 15 mL/min/1.73 square meters Performed By: #### GFR, CMP, CBC, ADIFF, ANEU #### [address] [address] CMP Collected: 12/19/2017 Status: F Source: [place] 7:27 AM [facility] REPOSITORY TYPE CODE TESTS RESULT OUT OF REFERENCE UNITS RANGE LAB GLU(LOINC) 80-115 mg/dL Glucose Level 90 LAB NA(LOINC) 136-146 mEq/L Sodium Level 141 LAB K(LOINC) 3.5-5.1 mEq/L Potassium Level 5.0 LAB CL(LOINC) 98-107 mEq/L Chloride 106 LAB CO2(LOINC) 23-31 mEq/L CO2 28 LAB EBAL(LOINC mEq/L ) Electrolyte Balance 7.0 LAB BUN(LOINC) 7.0-18.0 mg/dL BUN High 20.4 LAB CRE(LOINC) 0.6-1.2 mg/dL Creatinine Lvl (s) 0.6 LAB BC(LOINC) 7-27 ratio High BUN/Creatinine 34 Ratio LAB CA(LOINC) 8.4-10.2 mg/dL Calcium Lvl 9.6 LAB PROT(LOINC 6.0-8.3 G/dL ) Total Protein 6.7 LAB ALB(LOINC) 3.4-4.8 G/dL Albumin Level 4.3 LAB GLB(LOINC) G/dL Globulin 2.4 LAB AG(LOINC) 1.1-2.5 ratio A/G Ratio 1.8 LAB BILT(LOINC 0.2-1.0 mg/dL ) Bili Total 0.3 LAB AP(LOINC) 40-135 IU/L Alk Phos 102 LAB AST(LOINC) 10-40 IU/L AST/SGOT 20 LAB ALT(LOINC) 10-35 IU/L ALT/SGPT 18 Performed By: #### GFR, CMP, CBC, ADIFF, ANEU #### [id number] [place], [place] [address] CBC Collected: 12/19/2017 Status: F Source: [facility] 7:27 AM [facility] REPOSITORY TYPE CODE TESTS RESULT OUT OF REFERENCE UNITS RANGE LAB WBC(LOINC) 4.60-10.80 10 3/mcL WBC 6.00 LAB RBCCT(LOINC 4.20-5.40 10 6/mcL ) RBC 4.41 LAB HGB(LOINC) 12.0-16.0 G/dL Hgb 13.7 LAB HCT(LOINC) 37.0-47.0 % Hct 40.7 LAB MCV(LOINC) 80.0-94.0 fL MCV 92.3 LAB MCH(LOINC) 27.0-31.2 pg MCH 30.9 LAB MCHC(LOINC) 33.0-37.0 G/dL MCHC 33.5 LAB RDW(LOINC) 11.5-14.5 % High RDW 14.7 LAB PLT(LOINC) 130-400 10 3/mcL Platelet 326 LAB MPV(LOINC) 7.4-10.4 fL Low MPV 6.9 Performed By: #### GFR, CMP, CBC, ADIFF, ANEU #### [address] [place], [place] [address] .AUTO DIFF Collected: 12/19/2017 Status: F Source: [place] 7:27 AM [facility] REPOSITORY TYPE CODE TESTS RESULT OUT OF REFERENCE UNITS RANGE LAB FRANK(LOINC) 37.0-80.0 % Neutrophil % 52.0 LAB LYM(LOINC) 10.0-50.0 % Lymphocyte % 35.5 LAB MON(LOINC) 1.7-13.0 % Monocyte % 8.8 LAB EO(LOINC) 0.0-7.0 % Eosinophil % 2.8 LAB BAS(LOINC) 0.0-2.5 % Basophil % 0.9 LAB ABLYM(LOIN 0.77-3.85 10 3/mcL C) Lymphocyte, 2.10 Absolute LAB BEL[place](LOINC 0.15-1.00 10 3/mcL ) Monocyte, 0.50 Absolute LAB AEOS(LOINC 0.00-0.40 10 3/mcL ) Eosinophil, 0.20 Absolute LAB ABAS(LOINC 0.00-0.19 10 3/mcL ) Basophil, 0.10 Absolute Performed By: #### GFR, CMP, CBC, ADIFF, ANEU #### [id number] [place], [place] [address] .NEUABS Collected: 12/19/2017 Status: F Source: [facility] 7:27 AM [facility] REPOSITORY TYPE CODE TESTS RESULT OUT OF REFERENCE UNITS RANGE LAB ANEU(LOINC) 2.85-6.16 10 3/mcL Neutrophil, 3.10 Absolute Performed By: #### GFR, CMP, CBC, ADIFF, ANEU #### [id number] [place], [place] [address] PROGRESS Observed: 11/23/2017 Status: COMPLETED Source: [place] 6:05 PM [facility] REPOSITORY HNO ID: [id number] Author: JEANNE Gong Service: (none) Author Type: Physician Soft Metals Hand Engraver Type: Progress Notes Filed: 11/23/2017 6:07 PM Note Text: Patient presented for programming with Brittany. Franky Phillips PA-C CNOV Observed: 11/22/2017 Status: COMPLETED Source: [place] 11:30 AM [facility] REPOSITORY Office Visit (PAINMN) RADHA LI ([id number]) 1955 F Date Time Provider Department 11/22/17 11:30 AM PHILLIPS, SCHIRRON E PAINMN During your visit today, we recorded the following information about you: Franky Phillips PA-C, PA 11/23/2017 6:07 PM Signed Patient presented for programming with Brittany. Franky Phillips PA-C Referring Provider: SHANTEL PINEDA [[id number]] Allergies As of Date: 11/22/2017 Noted Allergy Reaction BALSALM OF MIKE (BALSAM MIKE) 03/10/2016 2 - Rash FORMALDEHYDE 03/10/2016 2 - Rash PENICILLINS 04/15/2005 2 - Rash SULFA (SULFONAMIDE ANTIBIOTICS) 04/15/2005 2 - Rash Date Reviewed: 10/10/2017 Reviewed by: Zakiya Shipley LPN - Fully Assessed Primary Visit Diagnosis:Chronic bilateral low back pain with bilateral sciatica [M54.42, M54.41, G89.29] Prescriptions as of 11/22/2017 Sig: AMITRIPTYLINE 25 MG TABLET Take 1 tablet by mouth daily * METHOTREXATE SODIUM 2.5 MG TA* Take 2.5 mg by mouth once eac* FOLIC ACID 1 MG TABLET Take 2 mg by mouth once daily. PLAQUENIL ORAL Take 200 mg by mouth twice da* THERAPEUTIC MULTIVITAMIN TABL* Take one(1) tablet daily. Problem List As Of Date 11/22/2017 Noted Resolved CONSTIPATION NOS [K59.00] Knee pain [M25.569] INVALID FOR* Bilateral leg numbness [R20.0] INVALID FOR* S/P lumbar laminectomy [Z98.890] INVALID FOR* Chronic bilateral low back pain with bilateral *INVALID FOR* Encounter Status:Closed by FRANKY PHILLIPS PA-C on 11/23/17 SCREENING MAMM (CAD), Observed: 11/01/2017 Status: F Source: [place] BILAT 1:22 PM [facility] REPOSITORY [facility] Imaging Services [address] [place] [address] SCREENING MAMM (CAD), BILAT MR#: [id number] Acct: [id number] Name: RADHA LI Rep #: [id number] : 1955 F 61 From: Collin Castañeda MD PCP: Eb Iraheta MD Status: [facility] CLI Study: SCREENING MAMM (CAD), BILAT Date of Exam: 11/01/17 Exam# [id number] Ordering Dr: Eb Iraheta MD MAMMOGRAPHY - BILATERAL SCREENING REASON FOR EXAM: Female, 61 years old. Routine annual screening examination. PERTINENT HISTORY: Non-contributory. TECHNIQUE: Digital bilateral breast kecia (3D mammographic acquisition) in the CC and MLO projections. 2-D mediolateral oblique (MLO) and craniocaudad (CC) views of both breasts were obtained. CAD: Full Field Digital Mammography with Computer Added Detection was performed. COMPARISON: Comparison is made with prior study dated October 19, 2016 and October 09, 2015. FINDINGS: Breast Composition: The breasts are heterogeneously dense, which may obscure small masses. There are no dominant masses or suspicious calcifications. No other significant abnormalities are identified. There has been no significant change since the prior study. BI/SCREENING MAMM (CAD), BILAT IMPRESSION: Stable bilateral screening mammogram. Yearly follow-up mammogram recommended. (A) ASSESSMENT CATEGORY: BIRADS Category 1: Negative. A letter regarding these results will be sent to the patient by the facility within 30 days. Approximately 10% of breast cancers are not detected by mammography. A normal mammogram should not delay biopsy of a clinically suspicious abnormality. [id number] Electronically Signed: Collin Castañeda MD at 8:19 EDT Tel [phone], Service support , CC: Eb Iraheta MD Substitute School Nurse: Signed SCREENING MAMM (CAD), Observed: 11/01/2017 Status: F Source: [place] BILAT 1:15 PM [facility] REPOSITORY [facility] Imaging Services [address] [place] [address] SCREENING MAMM (CAD), BILAT MR#: [id number] Acct: [id number] Name: RADHA LI Rep #: [id number] : 1955 F 61 From: Collin Castañeda MD PCP: Eb Iraheta MD Status: REG CLI Study: SCREENING MAMM (CAD), BILAT Date of Exam: 11/01/17 Exam# [id number] Ordering Dr: Eb Iraheta MD MAMMOGRAPHY - BILATERAL SCREENING REASON FOR EXAM: Female, 61 years old. Routine annual screening examination. PERTINENT HISTORY: Non-contributory. TECHNIQUE: Digital bilateral breast kecia (3D mammographic acquisition) in the CC and MLO projections. 2-D mediolateral oblique (MLO) and craniocaudad (CC) views of both breasts were obtained. CAD: Full Field Digital Mammography with Computer Added Detection was performed. COMPARISON: Comparison is made with prior study dated October 19, 2016 and October 09, 2015. FINDINGS: Breast Composition: The breasts are heterogeneously dense, which may obscure small masses. There are no dominant masses or suspicious calcifications. No other significant abnormalities are identified. There has been no significant change since the prior study. BI/SCREENING MAMM (CAD), BILAT IMPRESSION: Stable bilateral screening mammogram. Yearly follow-up mammogram recommended. (A) ASSESSMENT CATEGORY: BIRADS Category 1: Negative. A letter regarding these results will be sent to the patient by the facility within 30 days. Approximately 10% of breast cancers are not detected by mammography. A normal mammogram should not delay biopsy of a clinically suspicious abnormality. [id number] Electronically Signed: Collin Castañeda MD at 8:19 EDT Tel [phone], Service support , CC: Eb Iraheta MD Substitute School Nurse: Signed PROGRESS Observed: 10/24/2017 Status: COMPLETED Source: [place] [address]:15 AM [facility] REPOSITORY HNO ID: [id number] Author: JEANNE Gong Service: (none) Author Type: Physician Soft Metals Hand Engraver Type: Progress Notes Filed: 10/24/2017 7:20 PM Note Text: Chronic Pain Management Wound Check SUBJECTIVE: Radha Li presents to [facility] Pain Management Department for wound check following suture removal following SCS implant Nevro for treatment of low back pain placed 10/10/[address] Pineda. Since the last visit her states symptoms continue to be improved. Current pain intensity is 2 on a scale of 0 -10. Pain is located in the right low back radiating to toes on the right foot. The pain is described as aching, burning, pins and needles. Has finished the course of antibiotics without difficulty. Plan at last visit 10/17/2017: 1) Patient instructions given regarding care of incisions, signs/symptoms of infection, shower instructions and activity restrictions. 2) Medication refills given: none 3) Patient to follow-up with Nevro as needed or if programming changes are needed. 4) Patient to return for wound check in one week. 5) Patient instructed to call or return if pain increases, becomes worse or changes. OBJECTIVE: The lower thoracic and right buttocks dressings were noted to be clean, dry and intact. The dressings were removed and the Steri-Strips were still in place. The Steri-Strips were removed and both suture lines were well approximated. There were no signs of infection, warmth, erythema, drainage or swelling. Nevro new accounts representative was not present for this visit. Instructions: - When showering, wash with soap and water and pat dry. No dressing needed, leave open to the air. No swimming, bathing or hot tub for 5 days. ASSESSMENT: Radha Li is a 61 year old female who presents for wound check following suture removal following SCS implant Nevro for treatment of low back pain placed 10/10/[address] Pineda. She has a history of RA, knee replacement in 2010, and Lumbar laminectomy in 01/2014. Her pain is located in the right low back radiating to the toes on her right foot. The pain is described as aching, burning, pins and needles. Since the last visit, She states symptoms are much improved. She has no signs of infection at this time and the suture lines are well approximated. M96.1 Lumbar post-laminectomy syndrome (primary encounter diagnosis) M54.42, M54.41, G89.29 Chronic bilateral low back pain with bilateral sciatica PLAN: 1) Patient instructions given regarding care of incisions, signs/symptoms of infection, shower instructions and activity restrictions. 2) Medication refills given: none 3) Patient to follow-up with Nevro as needed or if programming changes are needed. 4) Patient to return for programming in one month. 5) Patient instructed to call or return if pain increases, becomes worse or changes. The plan of care was continued as established by Dr. Pineda. The above plan and management options were discussed at length with patient. Patient is in agreement with the above and verbalized understanding. Franky Phillips PA-C October 24, 2017 CNOV Observed: 10/24/2017 Status: COMPLETED Source: [place] 11:00 AM [facility] REPOSITORY Office Visit (PAINMN) RADHA LI ([id number]) 1955 F Date Time Provider Department 10/24/17 11:00 AM FRANKY PHILLIPS PAINMN During your visit today, we recorded the following information about you: Franky Phillips PA-C, JEANNE 10/24/2017 7:20 PM Signed Chronic Pain Management Wound Check SUBJECTIVE: Radha Li presents to [facility] Pain Management Department for wound check following suture removal following SCS implant Nevro for treatment of low back pain placed 10/10/[address] Pineda. Since the last visit her states symptoms continue to be improved. Current pain intensity is 2 on a scale of 0 -10. Pain is located in the right low back radiating to toes on the right foot. The pain is described as aching, burning, pins and needles. Has finished the course of antibiotics without difficulty. Plan at last visit 10/17/2017: 1) Patient instructions given regarding care of incisions, signs/symptoms of infection, shower instructions and activity restrictions. 2) Medication refills given: none 3) Patient to follow-up with Nevro as needed or if programming changes are needed. 4) Patient to return for wound check in one week. 5) Patient instructed to call or return if pain increases, becomes worse or changes. OBJECTIVE: The lower thoracic and right buttocks dressings were noted to be clean, dry and intact. The dressings were removed and the Steri-Strips were still in place. The Steri-Strips were removed and both suture lines were well approximated. There were no signs of infection, warmth, erythema, drainage or swelling. Nevro new accounts representative was not present for this visit. Instructions: - When showering, wash with soap and water and pat dry. No dressing needed, leave open to the air. No swimming, bathing or hot tub for 5 days. ASSESSMENT: Radha Li is a 61 year old female who presents for wound check following suture removal following SCS implant Nevro for treatment of low back pain placed 10/10/[address] Pineda. She has a history of RA, knee replacement in 2010, and Lumbar laminectomy in 01/2014. Her pain is located in the right low back radiating to the toes on her right foot. The pain is described as aching, burning, pins and needles. Since the last visit, She states symptoms are much improved. She has no signs of infection at this time and the suture lines are well approximated. M96.1 Lumbar post-laminectomy syndrome (primary encounter diagnosis) M54.42, M54.41, G89.29 Chronic bilateral low back pain with bilateral sciatica PLAN: 1) Patient instructions given regarding care of incisions, signs/symptoms of infection, shower instructions and activity restrictions. 2) Medication refills given: none 3) Patient to follow-up with Nevro as needed or if programming changes are needed. 4) Patient to return for programming in one month. 5) Patient instructed to call or return if pain increases, becomes worse or changes. The plan of care was continued as established by Dr. Pineda. The above plan and management options were discussed at length with patient. Patient is in agreement with the above and verbalized understanding. Franky Phillips PA-C October 24, 2017 Referring Provider: SHANTEL PINEDA [[id number]] Allergies As of Date: 10/24/2017 Noted Allergy Reaction BALSALM OF MIKE (BALSAM MIKE) 03/10/2016 2 - Rash FORMALDEHYDE 03/10/2016 2 - Rash PENICILLINS 04/15/2005 2 - Rash SULFA (SULFONAMIDE ANTIBIOTICS) 04/15/2005 2 - Rash Date Reviewed: 10/10/2017 Reviewed by: Zakiya Shipley LPN - Fully Assessed Primary Visit Diagnosis:S/P lumbar laminectomy [Z98.890] Other Visit Diagnosis:Bilateral leg numbness [R20.0] Prescriptions as of 10/24/2017 Sig: AMITRIPTYLINE 25 MG TABLET Take 1 tablet by mouth daily * METHOTREXATE SODIUM 2.5 MG TA* Take 2.5 mg by mouth once eac* FOLIC ACID 1 MG TABLET Take 2 mg by mouth once daily. PLAQUENIL ORAL Take 200 mg by mouth twice da* THERAPEUTIC MULTIVITAMIN TABL* Take one(1) tablet daily. Problem List As Of Date 10/24/2017 Noted Resolved CONSTIPATION NOS [K59.00] Knee pain [M25.569] INVALID FOR* Bilateral leg numbness [R20.0] INVALID FOR* S/P lumbar laminectomy [Z98.890] INVALID FOR* Chronic bilateral low back pain with bilateral *INVALID FOR* Follow-up and Disposition History Recorded Encounter Status:Closed by FRANKY PHILLIPS PA-C on 10/24/17 CNOV Observed: 10/17/2017 Status: COMPLETED Source: MUNDAY 1:00 PM [facility] REPOSITORY Office Visit (PAINMN) RADHA LI ([id number]) 1955 F Date Time Provider Department 10/17/17 1:00 PM FRANKY PHILLIPS PAINMN During your visit today, we recorded the following information about you: Franky Phillips PA-C, JEANNE 10/18/2017 8:48 PM Signed Chronic Pain Management Suture Removal SUBJECTIVE: Radha Li presents to [facility] for suture removal following SCS implant Nevro for treatment of low back pain placed 10/10/[address] Pineda. Since the last visit her states symptoms are much improved. Current pain intensity is 2 on a scale of 0 -10. Pain is located in the right low back radiating to toes on the right foot. The pain is described as aching, burning, pins and needles. Has finished the course of antibiotics without difficulty. Plan at last visit 10/10/2017: 1) s/p Nevro SCS Implant. She is HDS, offers no complaints, Saturations normal, no signs of respiratory distress. 2) Clindamycin 300 mg q8h for 48 hours. 2) RTC in 1 week for suture removal. 3) The treatment plan was discussed with the patient. Post procedure instructions were reviewed and the patient voiced understanding. OBJECTIVE: The lower thoracic and right buttocks dressings were noted to be clean, dry and intact. The dressings were removed and both suture lines were well approximated and dry. No warmth, erythema or swelling noted at the site. The incision line was cleansed with betadine swabs times three. The sutures were removed using sterile technique. Upon suture removal of the lower thoracic incision site, the surgical wound dehisced. There was not blood, drainage, or signs of infection. The wound appears to have opened along a prior surgical incision site where scar tissue was located. Steri-strips were applied to this incision site after being cleansed with Hibiclens. The right buttocks incision site was also cleansed with Hibiclens. A Primapore dressing was applied to both. [facility] was not present for this visit. Instructions: - Keep lower thoracic incision site covered and do not shower until after wound check in one week. Avoid sudden bending, twisting or reaching over your head, and lifting more than 5 lbs for the first 6-8 weeks while the leads scar into place. ASSESSMENT: Radha Li is a 61 year old female who presents for suture removal following SCS implant Nevro for treatment of low back pain placed 10/10/[address] Pineda. She has a history of RA, knee replacement in 2010, and Lumbar laminectomy in 01/2014. Her pain is located in the right low back radiating to the toes on her right foot. The pain is described as aching, burning, pins and needles. Since the last visit, She states symptoms are much improved. She has no signs of infection at this time. Upon suture removal of the lower thoracic incision site, the surgical wound dehisced. There was not blood, drainage, or signs of infection. The wound appears to have opened along a prior surgical incision site where scar tissue was located. Steri-strips were applied to this incision site after being cleansed with Hibiclens. Patient should keep the lower thoracic wound dressed and avoid showering for another week. She is advised to return for wound check in one week. M96.1 Lumbar post-laminectomy syndrome (primary encounter diagnosis) M54.42, M54.41, G89.29 Chronic bilateral low back pain with bilateral sciatica PLAN: 1) Patient instructions given regarding care of incisions, signs/symptoms of infection, shower instructions and activity restrictions. 2) Medication refills given: none 3) Patient to follow-up with Nevro as needed or if programming changes are needed. 4) Patient to return for wound check in one week. 5) Patient instructed to call or return if pain increases, becomes worse or changes. The plan of care was continued as established by Dr. Pineda. The above plan and management options were discussed at length with patient. Patient is in agreement with the above and verbalized understanding. Franky Phillips PA-C 10/17/2017 Referring Provider: SHANTEL PINEDA [[id number]] Allergies As of Date: 10/17/2017 Noted Allergy Reaction [facility] ([facility]) 03/10/2016 2 - Rash FORMALDEHYDE 03/10/2016 2 - Rash PENICILLINS 04/15/2005 2 - Rash SULFA (SULFONAMIDE ANTIBIOTICS) 04/15/2005 2 - Rash Date Reviewed: 10/10/2017 Reviewed by: Zakiya Shipley LPN - Fully Assessed Primary Visit Diagnosis:Lumbar post-laminectomy syndrome [M96.1] Other Visit Diagnosis:Chronic bilateral low back pain with bilateral sciatica [M54.42, M54.41, G89.29] Prescriptions as of 10/17/2017 Sig: AMITRIPTYLINE 25 MG TABLET Take 1 tablet by mouth daily * METHOTREXATE SODIUM 2.5 MG TA* Take 2.5 mg by mouth once eac* FOLIC ACID 1 MG TABLET Take 2 mg by mouth once daily. PLAQUENIL ORAL Take 200 mg by mouth twice da* THERAPEUTIC MULTIVITAMIN TABL* Take one(1) tablet daily. Problem List As Of Date 10/17/2017 Noted Resolved CONSTIPATION NOS [K59.00] Knee pain [M25.569] INVALID FOR* Bilateral leg numbness [R20.0] INVALID FOR* S/P lumbar laminectomy [Z98.890] INVALID FOR* Chronic bilateral low back pain with bilateral *INVALID FOR* Encounter Status:Closed by FRANKY PHILLIPS PA-C on 10/18/17 PROGRESS Observed: 10/17/2017 Status: COMPLETED Source: MUNDAY 12:55 PM [facility] REPOSITORY HNO ID: [id number] Author: JEANNE Gong Service: (none) Author Type: Physician Soft Metals Hand Engraver Type: Progress Notes Filed: 10/18/2017 8:48 PM Note Text: Chronic Pain Management Suture Removal SUBJECTIVE: Radha Li presents to [facility] for suture removal following SCS implant Nevro for treatment of low back pain placed 10/10/[address] Pineda. Since the last visit her states symptoms are much improved. Current pain intensity is 2 on a scale of 0 -10. Pain is located in the right low back radiating to toes on the right foot. The pain is described as aching, burning, pins and needles. Has finished the course of antibiotics without difficulty. Plan at last visit 10/10/2017: 1) s/p Nevro SCS Implant. She is HDS, offers no complaints, Saturations normal, no signs of respiratory distress. 2) Clindamycin 300 mg q8h for 48 hours. 2) RTC in 1 week for suture removal. 3) The treatment plan was discussed with the patient. Post procedure instructions were reviewed and the patient voiced understanding. OBJECTIVE: The lower thoracic and right buttocks dressings were noted to be clean, dry and intact. The dressings were removed and both suture lines were well approximated and dry. No warmth, erythema or swelling noted at the site. The incision line was cleansed with betadine swabs times three. The sutures were removed using sterile technique. Upon suture removal of the lower thoracic incision site, the surgical wound dehisced. There was not blood, drainage, or signs of infection. The wound appears to have opened along a prior surgical incision site where scar tissue was located. Steri-strips were applied to this incision site after being cleansed with Hibiclens. The right buttocks incision site was also cleansed with Hibiclens. A Primapore dressing was applied to both. The Nevro new accounts representative was not present for this visit. Instructions: - Keep lower thoracic incision site covered and do not shower until after wound check in one week. Avoid sudden bending, twisting or reaching over your head, and lifting more than 5 lbs for the first 6-8 weeks while the leads scar into place. ASSESSMENT: Radha Li is a 61 year old female who presents for suture removal following SCS implant Nevro for treatment of low back pain placed 10/10/[address] Pineda. She has a history of RA, knee replacement in 2010, and Lumbar laminectomy in 01/2014. Her pain is located in the right low back radiating to the toes on her right foot. The pain is described as aching, burning, pins and needles. Since the last visit, She states symptoms are much improved. She has no signs of infection at this time. Upon suture removal of the lower thoracic incision site, the surgical wound dehisced. There was not blood, drainage, or signs of infection. The wound appears to have opened along a prior surgical incision site where scar tissue was located. Steri-strips were applied to this incision site after being cleansed with Hibiclens. Patient should keep the lower thoracic wound dressed and avoid showering for another week. She is advised to return for wound check in one week. M96.1 Lumbar post-laminectomy syndrome (primary encounter diagnosis) M54.42, M54.41, G89.29 Chronic bilateral low back pain with bilateral sciatica PLAN: 1) Patient instructions given regarding care of incisions, signs/symptoms of infection, shower instructions and activity restrictions. 2) Medication refills given: none 3) [facility] or if [facility] changes are needed. 4) Patient to return for wound check in one week. 5) Patient instructed to call or return if pain increases, becomes worse or changes. The plan of care was continued as established by Dr. Pineda. The above plan and management options were discussed at length with patient. Patient is in agreement with the above and verbalized understanding. Franky Phillips PA-C 10/17/2017 ANES POST Observed: 10/10/2017 Status: COMPLETED Source: MUNDAY 12:40 PM [facility] REPOSITORY HNO ID: [id number] Author: Gulshan Boogie (Mechanical Maintenance Instructor) Service: Anesthesiology Author Type: Nurse Gettering Operator Type: Anesthesia PostOp Filed: 10/10/2017 12:41 PM Note Text: POST ANESTHESIA EVALUATION NOTE SERVICE DATE: 10/10/2017 SERVICE TIME:1240 : 1955 Vitals: There were no vitals filed for this visit. There were no vitals filed for this visit. There were no vitals filed for this visit. There were no vitals filed for this visit. There were no vitals filed for this visit. Validated Vital Signs: HR: 87; BP: 134/83; RR: 14; SpO2%: 99; Temperature: 36.5 POST ANES STATUS: No apparent anesthetic complications. The patient is appropriately hydrated with stable respiratory and cardiovascular status. Patient has safe and adequate airway control. The patient has appropriate pain relief and no significant post operative nausea or vomiting. The patient has achieved baseline mental status. Further assessment by Anesthesia Service: None Other Remarks: SIGNATURE: Gulshan Boogie APRN.CRNA PATIENT NAME: Radha Li DATE: October 10, 2017 TIME: 12:40 PM PAGER/CONTACT #: [id number] CNOV Observed: 10/10/2017 Status: COMPLETED Source: MUNDAY 9:00 AM [facility] REPOSITORY Office Visit (PAINMN) RADHA LI ([id number]) 1955 F Date Time Provider Department 10/10/17 9:00 AM SHANTEL PINEDA PAINMN During your visit today, we recorded the following information about you: Temperature Pulse Respiration Blood pressure 97.3 degrees 85/minute 16/minute 122/81 Weight Height 81.6 kg 1.626 m Shantel Pineda 10/11/2017 2:11 PM Signed [facility] Pre-Procedure Note Patient Name: Radha Li SUBJECTIVE: Radha Li is a 61 year old female who presents to [facility] for SCS implant. This is her first (1) procedure. The pain is located in the low back and radiates to the right lower extremity down to the toes. The pain is aching, burning and crushing in nature and is described as constant and waxes and wanes. Current pain intensity is 3 at rest and spikes to 6/10 with ambulation. Patient denies any contraindications to the procedure including coagulopathy, infection, recent cerebral/myocardial infarct and hemodynamic instability. 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 Pain medications reviewed: Yes OBJECTIVE: BP 122/81 Pulse 85 Temp 36.3 ?C (97.3 ?F) (Temporal Artery) Resp 16 Ht 162.6 cm (5' 4) Wt 81.6 kg (180 lb) SpO2 97% BMI 30.90 kg/m? Significant changes in the patient's condition since the History and Physical: No INFORMED CONSENT: The procedure, risks, benefits and options were discussed with patient. There are no contraindications to the procedure. The patient expressed understanding and agreed to proceed. The personnel performing the procedure was discussed. I verify that I personally obtained Radha Li's consent prior to the start of the procedure and the signed consent can be found on the patient's chart. Hermes Blankenship MD October 10, 2017 PROCEDURE: SPINAL CORD STIMULATOR IMPLANT Incision/Procedure Start Time: 1031 Incision Close/Procedure End Time: 1230 Dr. Shantel Pineda was present during the entire procedure. Soft Metals Hand Engraver: Hermes Blankenship MD OPERATION: Percutaneous SCS lead implantation x 2 and Nevro Sensa system implantable pulse generator. ANESTHESIA: MAC PREOPERATIVE DIAGNOSIS: Postlaminectomy Syndrome POSTOPERATIVE DIAGNOSIS: Same PREOPERATIVE ANTIBIOTICS: 1 g IV Vancomycin given 30 minutes prior to incision, see anesthesia record for time. OPERATIVE PROCEDURE: Mrs. Li was brought to the operating room and was placed in the prone position. She was prepped and draped in the usual sterile fashion with providone-iodine three times. With fluoroscopic guidance the location of the desired site for placement of the percutaneous leads was identified and local anesthetic consisting of 1% Lidocaine and epinephrine was injected subcutaneously over the area. An approximately 7cm longitudinal incision was made in the midline. We then dissected down to the supraspinous ligament. Hemostasis was established and a self-retaining retractor was used to allow adequate visualization. At this point, patient had a desaturation event believed to be secondary to laryngospasm. Her saturations dropped to the mid 70's. After she did not respond to initial management, we covered the midline incision with Tegaderm dressing and removed all the sterile drapes, turned the patient to her side, so our Gettering Operator could place a nasal trumpet and mask ventilate. Her saturations returned to 100%, She showed no signs of respiratory distress or further deterioration. Her hemodynamics were stable. Thus we decided it was safe to procede with the procedure. She was re-prepped and draped in sterile fashion. A 14 gauge touhy was then introduced with the paraspinous approach under fluoroscopic guidance into the T12 - L1 interlaminar space. The entry of the Tuohy into the epidural space was verified by using loss of resistance to air with a glass 5 mL syringe. The lead was passed through the needle and advanced up to T8 with fluoroscopic guidance. A second lead was then placed in identical fashion and placed adjacent to the first up to the T8-9 interspace. The leads were then anchored to the supraspinous ligaments with #2-0 Nylon suture using the anchoring devices. A pocket site was identified just below the right iliac crest. Local anesthetic was administered in the region and a three centimeter incision was made. A subcutaneous pocket was then created with a blunt dissection technique for placement of the Sensa implantable pulse generator. The tunneling was then done between the lead and the pocket site after the administration of additional local anesthetic subcutaneously. The tunneling tool with a wedged tip attachment was introduced subcutaneously from the lead incision and guided to the pocket. The leads were inserted into the tunneling catheter and advanced to the pocket site. The leads were then inserted into the implantable pulse generator and the screws were tightened with the hexwrench. The generator was then introduced into the pocket and remote tested to ensure adequate placement of the leads into the IPG. Both surgical wounds were then irrigated with antibiotic solution and the wounds were closed with #2-0 Vicryl suture. This was followed-up with a subcuticular #3-0 Vicryl suture and a #3-0 Ethilon running stitch. A sterile dressing was applied. No specimens collected. Simple ( 3 or fewer) electronic stimulator analysis was performed. The impedance value was normal. Analysis/ programming performed. COMPLICATIONS: There were no surgical complications. No specimens collected. ESTIMATED BLOOD LOSS: The estimated blood loss was nil. The primary surgeon/proceduralist performed the procedure with assistance. Make: Nevro Model: Sensa Serial Number: [id number] IPG) [id number] ( Leads) [facility] Post-Procedure Note Patient name: Radha Li Pre Procedure diagnosis: Post laminectomy Syndrome Post-Procedure diagnosis: same ASSESSMENT: Purposeful response to verbal or tactile stimulation: yes Neurological Status: Alert and oriented x 3 Awake, moving all extremities Post Procedure Pain Level: 3 on a scale of 0-10. Postoperative Nausea/Vomiting (PONV): absent PLAN: 1) s/p Nevro SCS Implant. She is HDS, offers no complaints, Saturations normal, no signs of respiratory distress. 2) Clindamycin 300 mg q8h for 48 hours. 2) RTC in 1 week for suture removal. 3) The treatment plan was discussed with the patient. Post procedure instructions were reviewed and the patient voiced understanding. Hermes Blankenship MD October 10, 2017 Staff Note I was physically present during the brower portions of the Service. I confirmed the brower findings and directed the treatment plans in decision making. Shantel Pineda MD, PhD Referring Provider: SHANTEL PINEDA [[id number]] Allergies As of Date: 10/10/2017 Noted Allergy Reaction [facility] ([facility]) 03/10/2016 2 - Rash FORMALDEHYDE 03/10/2016 2 - Rash PENICILLINS 04/15/2005 2 - Rash SULFA (SULFONAMIDE ANTIBIOTICS) 04/15/2005 2 - Rash Date Reviewed: 10/10/2017 Reviewed by: Zakiya Shipley LPN - Fully Assessed Reason for Visit: Procedure [88] Medication Update [2245] Primary Visit Diagnosis:Lumbar post-laminectomy syndrome [M96.1] Order(s):[] clindamycin (CLEOCIN) 150 mg capsuleTake 2 capsules by mouth four times daily for 8 doses.Disp: 8 capsuleRfl: 0 Prescriptions as of 10/10/2017 Sig: X AMITRIPTYLINE 25 MG TABLET Take 1 tablet by mouth daily * METHOTREXATE SODIUM 2.5 MG TA* Take 2.5 mg by mouth once eac* FOLIC ACID 1 MG TABLET Take 2 mg by mouth once daily. PLAQUENIL ORAL Take 200 mg by mouth twice da* THERAPEUTIC MULTIVITAMIN TABL* Take one(1) tablet daily. CLINDAMYCIN HCL 150 MG CAPSULE Take 2 capsules by mouth four* Problem List As Of Date 10/10/2017 Noted Resolved CONSTIPATION NOS [K59.00] Knee pain [M25.569] INVALID FOR* Bilateral leg numbness [R20.0] INVALID FOR* S/P lumbar laminectomy [Z98.890] INVALID FOR* Chronic bilateral low back pain with bilateral *INVALID FOR* Prescriptions ordered this encounter Disp Refills Start End CLINDAMYCIN HCL 150 MG CAPSULE 8 ca* 0 10/10/2017 10/12/2017 Route: ORAL Sig: Take 2 capsules by mouth four times daily for 8 doses. Disposition: Return in about 1 week (around 10/17/2017) for clinic fu and suture removal. Follow-up and Disposition History Recorded Encounter Status:Closed by SHANTEL PINEDA MD on 10/11/17 PROGRESS Observed: 10/10/2017 Status: COMPLETED Source: MUNDAY 7:55 AM [facility] REPOSITORY HNO ID: [id number] Author: Shantel Pineda Service: (none) Author Type: Physician Type: Progress Notes Filed: 10/11/2017 2:11 PM Note Text: [facility] Pre-Procedure Note Patient Name: Radha Li SUBJECTIVE: Radha Li is a 61 year old female who presents to [facility] for SCS implant. This is her first (1) procedure. The pain is located in the low back and radiates to the right lower extremity down to the toes. The pain is aching, burning and crushing in nature and is described as constant and waxes and wanes. Current pain intensity is 3 at rest and spikes to 6/10 with ambulation. Patient denies any contraindications to the procedure including coagulopathy, infection, recent cerebral/myocardial infarct and hemodynamic instability. 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 Pain medications reviewed: Yes OBJECTIVE: BP 122/81 Pulse 85 Temp 36.3 ?C (97.3 ?F) (Temporal Artery) Resp 16 Ht 162.6 cm (5' 4) Wt 81.6 kg (180 lb) SpO2 97% BMI 30.90 kg/m? Significant changes in the patient's condition since the History and Physical: No INFORMED CONSENT: The procedure, risks, benefits and options were discussed with patient. There are no contraindications to the procedure. The patient expressed understanding and agreed to proceed. The personnel performing the procedure was discussed. I verify that I personally obtained Radha Li's consent prior to the start of the procedure and the signed consent can be found on the patient's chart. Hermes Blankenship MD October 10, 2017 PROCEDURE: SPINAL CORD STIMULATOR IMPLANT Incision/Procedure Start Time: 1031 Incision Close/Procedure End Time: 1230 Dr. Shantel Pineda was present during the entire procedure. Soft Metals Hand Engraver: Hermes Blankenship MD OPERATION: Percutaneous SCS lead implantation x 2 and Nevro Sensa system implantable pulse generator. ANESTHESIA: MAC PREOPERATIVE DIAGNOSIS: Postlaminectomy Syndrome POSTOPERATIVE DIAGNOSIS: Same PREOPERATIVE ANTIBIOTICS: 1 g IV Vancomycin given 30 minutes prior to incision, see anesthesia record for time. OPERATIVE PROCEDURE: Mrs. Li was brought to the operating room and was placed in the prone position. She was prepped and draped in the usual sterile fashion with providone-iodine three times. With fluoroscopic guidance the location of the desired site for placement of the percutaneous leads was identified and local anesthetic consisting of 1% Lidocaine and epinephrine was injected subcutaneously over the area. An approximately 7cm longitudinal incision was made in the midline. We then dissected down to the supraspinous ligament. Hemostasis was established and a self-retaining retractor was used to allow adequate visualization. At this point, patient had a desaturation event believed to be secondary to laryngospasm. Her saturations dropped to the mid 70's. After she did not respond to initial management, we covered the midline incision with Tegaderm dressing and removed all the sterile drapes, turned the patient to her side, so our Gettering Operator could place a nasal trumpet and mask ventilate. Her saturations returned to 100%, She showed no signs of respiratory distress or further deterioration. Her hemodynamics were stable. Thus we decided it was safe to procede with the procedure. She was re-prepped and draped in sterile fashion. A 14 gauge touhy was then introduced with the paraspinous approach under fluoroscopic guidance into the T12 - L1 interlaminar space. The entry of the Tuohy into the epidural space was verified by using loss of resistance to air with a glass 5 mL syringe. The lead was passed through the needle and advanced up to T8 with fluoroscopic guidance. A second lead was then placed in identical fashion and placed adjacent to the first up to the T8-9 interspace. The leads were then anchored to the supraspinous ligaments with #2-0 Nylon suture using the anchoring devices. A pocket site was identified just below the right iliac crest. Local anesthetic was administered in the region and a three centimeter incision was made. A subcutaneous pocket was then created with a blunt dissection technique for placement of the Sensa implantable pulse generator. The tunneling was then done between the lead and the pocket site after the administration of additional local anesthetic subcutaneously. The tunneling tool with a wedged tip attachment was introduced subcutaneously from the lead incision and guided to the pocket. The leads were inserted into the tunneling catheter and advanced to the pocket site. The leads were then inserted into the implantable pulse generator and the screws were tightened with the hexwrench. The generator was then introduced into the pocket and remote tested to ensure adequate placement of the leads into the IPG. Both surgical wounds were then irrigated with antibiotic solution and the wounds were closed with #2-0 Vicryl suture. This was followed- up with a subcuticular #3-0 Vicryl suture and a #3-0 Ethilon running stitch. A sterile dressing was applied. No specimens collected. Simple ( 3 or fewer) electronic stimulator analysis was performed. The impedance value was normal. Analysis/ programming performed. COMPLICATIONS: There were no surgical complications. No specimens collected. ESTIMATED BLOOD LOSS: The estimated blood loss was nil. The primary surgeon/proceduralist performed the procedure with assistance. Make: Nevro Model: Sensa Serial Number: [id number] (IPG) [id number] ( Leads) [facility] Post-Procedure Note Patient name: Radha Li Pre Procedure diagnosis: Post laminectomy Syndrome Post-Procedure diagnosis: same ASSESSMENT: Purposeful response to verbal or tactile stimulation: yes Neurological Status: Alert and oriented x 3 Awake, moving all extremities Post Procedure Pain Level: 3 on a scale of 0-10. Postoperative Nausea/Vomiting (PONV): absent PLAN: 1) s/p Nevro SCS Implant. She is HDS, offers no complaints, Saturations normal, no signs of respiratory distress. 2) Clindamycin 300 mg q8h for 48 hours. 2) RTC in 1 week for suture removal. 3) The treatment plan was discussed with the patient. Post procedure instructions were reviewed and the patient voiced understanding. Hermes Blankenship MD October 10, 2017 Staff Note I was physically present during the brower portions of the Service. I confirmed the brower findings and directed the treatment plans in decision making. Shantel Pineda MD, PhD CNCNPATED Observed: 10/10/2017 Status: COMPLETED Source: [place] 12:00 AM [facility] REPOSITORY Education (PAINMN) RADHA LI ([id number]) 1955 F Date Time Provider Department 10/10/17 SHANTEL PINEDA Reason for Visit: Patient Education [91] Visit Notes: >> Loida Pires RN Mon October 10, 2017 2:54 PM Status: Signed AMBULATORY PATIENT EDUCATION NOTE READINESS TO LEARN COGNITIVE ABILITY: Alert and oriented MOTIVATION TO LEARN: Interested FAMILY SUPPORT: None - Unavailable/disinterested INSTRUCTION PROVIDED TO: Patient PATIENT LEARNS BEST BY: Individual Instruction FACTORS AFFECTING LEARNING: None PHYSICAL LIMITATIONS AFFECTING LEARNING: None LEARNING RESPONSE DIAGNOSIS: pain EDUCATION TOPIC/ TEACHING POINTS: Procedure / Surgery: SCS Implant METHOD OF INSTRUCTION: Individual instruction PATIENT / FAMILY RESPONSE: Verbalizes understanding of: INFECTION MANAGEMENT-Signs and symptoms of an infection and importance of contacting the physician FOLLOW-UP PLAN: Complete - No need for follow-up SUPPLEMENTAL MATERIAL: Procedure discharge instructions REFERRAL (RECOMMENDATION): None Electronically Signed By Loida Navarro RN In Department: PAIN MANAGEMENT During your visit today, we recorded the following information about you: Allergies As of Date: 10/10/2017 Noted Allergy Reaction BALSALM OF [place] (BALSAM MIKE) 03/10/2016 2 - Rash FORMALDEHYDE 03/10/2016 2 - Rash PENICILLINS 04/15/2005 2 - Rash SULFA (SULFONAMIDE ANTIBIOTICS) 04/15/2005 2 - Rash Date Reviewed: 10/10/2017 Reviewed by: Zakiya Shipley LPN - Fully Assessed Prescriptions as of 10/10/2017 Sig: CLINDAMYCIN HCL 150 MG CAPSULE Take 2 capsules by mouth four* AMITRIPTYLINE 25 MG TABLET Take 1 tablet by mouth daily * METHOTREXATE SODIUM 2.5 MG TA* Take 2.5 mg by mouth once eac* FOLIC ACID 1 MG TABLET Take 2 mg by mouth once daily. PLAQUENIL ORAL Take 200 mg by mouth twice da* THERAPEUTIC MULTIVITAMIN TABL* Take one(1) tablet daily. Encounter Status:Closed by LOIDA PIRES RN on 10/10/17 BASIC METABOLIC PANL Collected: 10/04/2017 Status: F Source: [place] 11:21 AM [facility] REPOSITORY TYPE CODE TESTS RESULT OUT OF REFERENCE UNITS RANGE LAB GLU 74-99 mg/dL High Glucose 113 Result Comment: The [place] Diabetes Association (ADA) provides guidance for cutoff values for fasting glucose and random glucose. The ADA defines fasting as no caloric intake for at least 8 hours. Fas ting plasma glucose results between 100 to 125 mg/dL indicate increased risk for diabetes (prediabetes). Fasting plasma glucose results greater than or equal to 126 mg/dL meet the criteria for diagnosis of diabetes. In the absence of unequivocal hyperglycemia, results should be confirmed by repeat testing. In a patient with classic symptoms of hyperglycemia or hyperglycemic crisis, random plasma glucose results greater than or equal to 200 mg/dL meet the criteria for diagnosis of diabetes. Reference: Standards of Medical Care in Diabetes 2016, [place] Diabetes Association. Diabetes Care. 2016.39(Suppl 1). LAB BUN 7-21 mg/dL BUN 14 LAB CRET 0.58-0.96 mg/dL Creatinine 0.69 LAB NA 136-144 mmol/L Sodium 139 LAB K 3.7-5.1 mmol/L Potassium 4.9 LAB CL 97-105 mmol/L Chloride 101 LAB CO2 22-30 mmol/L CO2 26 LAB AGAP 9-18 mmol/L Anion Gap 12 LAB CA 8.5-10.2 mg/dL Calcium, Total 9.4 LAB GFRAA eGFR- Amer. >60 LAB GFRNAA . eGFR-All Other Races >60 Result Comment: eGFR (Estimated GFR) Units of measure: mL/min/1.73 meters squared eGFR is derived from the reexpressed MDRD Study equation using the following parameters: serum creatinine, age, gender and race. The creatinine assay has been calibrated to be traceable to IDMS. An eGFR <60 mL/min/1.73m2 for >3 months is consistent with chronic kidney disease. Refer to KDOQI guidelines for clinical interpretation. In patients with unstable renal function, e.g. those with acute kidney injury, the eGFR may not accurately reflect actual GFR. Performed By: #### BMP, CBCDIF #### [facility] [address] [place] [id number] CBC AND DIFFERENTIAL Collected: 10/04/2017 Status: F Source: [place] 11:21 AM [facility] REPOSITORY TYPE CODE TESTS RESULT OUT OF REFERENCE UNITS RANGE LAB WBC 3.70-11.00 k/uL WBC 5.46 LAB RBC 3.90-5.20 m/uL RBC 4.49 LAB HGB 11.5-15.5 g/dL Hemoglobin 13.2 LAB HCT 36.0-46.0 % Hematocrit 41.9 LAB MCV 80.0-100.0 fL MCV 93.3 LAB MCH 26.0-34.0 pG MCH 29.4 LAB MCHC 30.5-36.0 g/dL MCHC 31.5 LAB RDWCV 11.5-15.0 % RDW-CV High 15.2 LAB PLTCT 150-400 k/uL Platelet Count 289 LAB MPV 9.0-12.7 fL Low MPV 8.8 LAB ANEUT % Neut% 44.9 LAB AANEUT 1.45-7.50 k/uL Abs Neut 2.44 LAB ALYMP % Lymph% 35.5 LAB AALYMP 1.00-4.00 k/uL Abs Lymph 1.94 LAB AMONO % [place]% 15.9 LAB AAMONO <0.87 k/uL Abs [place] High 0.87 LAB AEOS % Eosin% 2.6 LAB AAEOS <0.46 k/uL Abs Eosin 0.14 LAB ABASO % Baso% 1.1 LAB AABASO <0.11 k/uL Abs Baso 0.06 LAB AUNRBC 0 /100 WBC NRBCs 0.0 LAB ABNRBC <0.01 k/uL Absolute nRBC <0.01 LAB DTYP DTYPE Auto Diff Performed By: #### BMP, CBCDIF #### [facility] [address] [place], [place] [address] CNOV Observed: 10/04/2017 Status: COMPLETED Source: [place] 10:30 AM [facility] REPOSITORY Office Visit (PAINMN) RADHA LI ([id number]) 1955 F Date Time Provider Department 10/04/17 10:30 AM ASHLEY MAJOR) PAINMN During your visit today, we recorded the following information about you: Temperature Blood pressure Weight Height 97.6 degrees 123/76 83.9 kg 1.651 m Ashley Major PA-C, JEANNE 10/04/2017 1:01 PM Signed HISTORY AND PHYSICAL EXAMINATION SERVICE DATE: 10/04/2017 SERVICE TIME: 10 AM PRIMARY CARE PHYSICIAN: Eb Iraheta REASON FOR VISIT: Radha Li is a 61 year old female who is scheduled for SCS implant (Nevro) at the request of Dr. Shantel Pineda for routine HANDP. The patient has the following: ACTIVE PROBLEM LIST Unspecified Constipation Knee Pain Bilateral Leg Numbness S/P Lumbar Laminectomy Chronic Bilateral Low Back Pain With Bilateral Sciatica Subjective CHIEF COMPLAINT: Low back pain HPI: 61 year old female with chronic lower back pain and right lumbar radiculopathy radiating to the right foot which began after a L3-L5 laminectomy on 01/11/14. She is scheduled for SCS implant on 10/10/[address] Pineda PAST MEDICAL HISTORY Diagnosis Date - Arthritis - Arthritis of shoulder region, left - Degenerative disc disease, lumbar - Psoriasis and similar disorders - Unspecified constipation PAST SURGICAL HISTORY Procedure Laterality Date - BACK SURGERY HX 01/11/2014 Laminectomy L3-5 - COLONOSCOP W/ OR W/O [facility] SPEC 05/24/2005 Colonoscopy - LIGATE FALLOPIAN TUBE Tubal ligation - PAST SURGICAL HISTORY OF right total knee revision - REMOVAL OF TONSILS,<12 Y/O CHILDHOOD Tonsillectomy - REPAIR ING HERNIA,5+Y/O,REDUCIBL Hernia repair, inguinal - REVISE MEDIAN N/CARPAL TUNNEL SURG 1990,1991 Carpal tunnel decomp - TOTAL KNEE REPLACEMENT may 2011 right sided, manipulation 2011 FAMILY HISTORY Problem Relation Age of Onset - Asthma Father - myocardial infarction [OTHER] Father 48 - Ischemic Heart Disease Mother ARTHRITIS, HYSTERECTOMY - migraines [OTHER] Mother - Allergies Brother SOCIAL HISTORY: Social History Marital status: Spouse name: Years of education: Number of children: Occupational History 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 SENNA PLUS 8.6-50 mg per tablet TAKE 2 TABLETS TWICE A DAY NEEDED FOR CONSTIPATION amitriptyline (ELAVIL) 25 mg tablet Take 1 tablet by mouth daily at bedtime. ibuprofen (ADVIL) 200 mg tablet Take 2 tablets 2-3 times daily as needed methotrexate 2.5 mg tablet Take 2.5 mg by mouth once each week. Started by pt. Rheumtologist , 7 tabs once a week folic acid 1 mg tablet Take 2 mg by mouth once daily. HYDROXYCHLOROQUINE SULFATE (PLAQUENIL ORAL) Take 200 mg by mouth twice daily. THERAPEUTIC MULTIVITAMIN TAB Take one(1) tablet daily. No medication comments found. ALLERGIES Allergen Reactions - Balsalm Of [place] [Ba* Rash - Formaldehyde Rash - Penicillins Rash - Sulfa (Sulfonamide * Rash REVIEW OF SYSTEMS: PAIN ASSESSMENT: General: No weight loss, malaise or fevers. Neuro: No history of TIA's, stroke, STATISTICS TUTOR tumor, impaired sensorium, hemiplegia, paraplegia or quadraplegia. No neurological symptoms or problems. Respiratory: No history of current cough or dyspnea, or pneumonia in the past 6 weeks. No history of respiratory/pulmonary symptoms or problems. Cardiovascular: No history of HTN requiring medication, no history of angina, CHF, MO, cardiac surgery or stents. Denies rest pain, gangrene or revascularization/amputation for PVD. No history of cardiovascular symptoms or problems. GI: No history of GI symptoms or problems. No history of esophageal varices, recent ascites, or ETOH greater than 2 drinks per day. : No history of dysuria, frequency or incontinence,, stones or chronic kidney disease Endocrine: No history of diabetes. Has not taken steroids within the past 30 days. No history of endocrinological symptoms or problems. Hematology: No history of bleeding or clotting disorder. Pt is not taking anti-coagulation or platelet medications. No history of hematological symptoms or problems. Oncology: No history of CA metastasis, chemo within 30 days, or radiotherapy within 90 days. Has not lost 10% of body wt in 6 months. No history of oncological symptoms or problems. Psych: No history of psychiatric symptoms or problems. Musculoskeletal: Back pain and Joint pain Skin: Negative for lesions, rash and itching. Objective PHYSICAL EXAM: VITALS: There were no vitals taken for this visit. General: Alert and oriented Skin: Normal color, no rash, no lesions. HEENT: EOM, pupils equal, round and reactive. Cardiovascular: Normal S1 AND S2, no rubs, murmurs or gallops. No JVD. Lungs: Normal breath sounds, no wheezes or crackles. Abdomen: Soft, non-tender, no rigidity. Extremities: No deformity, no edema or tenderness, no joint swelling or clubbing. Neurological: Normal cognition and motor skills. Z98.890 S/P lumbar laminectomy M54.42, M54.41, G89.29 Chronic bilateral low back pain with bilateral sciatica M96.1 Failed Back Syndrome ? No results found for: HBA1C PENDING Assessment ASSESSMENT There is no known pertinent medical condition which may affect michael-operative course PLAN This patient is optimally prepared for surgery. CONSULTS: Patient does not require consults for optimization at this time. Planned Anesthetic: MAC Instructions Given to Patient: Patient given verbal and written preop instructions and voices comprehension and compliance. SIGNATURE: Ashley Major PA-C PATIENT NAME: Radha Li DATE: October 04, 2017 TIME: 10:06 AM PAGER/CONTACT #: Referring Provider: SHANTEL PINEDA [[id number]] Allergies As of Date: 10/04/2017 Noted Allergy Reaction BALSALM OF MIKE (BALSAM MIKE) 03/10/2016 2 - Rash FORMALDEHYDE 03/10/2016 2 - Rash PENICILLINS 04/15/2005 2 - Rash SULFA (SULFONAMIDE ANTIBIOTICS) 04/15/2005 2 - Rash Date Reviewed: 10/04/2017 Reviewed by: Ashley (Surinder) JEANNE Major - Fully Assessed Visit Diagnoses:S/P lumbar laminectomy [Z98.890] Failed back syndrome [M96.1] Chronic bilateral low back pain with right- sided sciatica [M54.41, G89.29] Prescriptions as of 10/04/2017 Sig: AMITRIPTYLINE 25 MG TABLET Take 1 tablet by mouth daily * METHOTREXATE SODIUM 2.5 MG TA* Take 2.5 mg by mouth once eac* FOLIC ACID 1 MG TABLET Take 2 mg by mouth once daily. PLAQUENIL ORAL Take 200 mg by mouth twice da* THERAPEUTIC MULTIVITAMIN TABL* Take one(1) tablet daily. Problem List As Of Date 10/04/2017 Noted Resolved CONSTIPATION NOS [K59.00] Knee pain [M25.569] INVALID FOR* Bilateral leg numbness [R20.0] INVALID FOR* S/P lumbar laminectomy [Z98.890] INVALID FOR* Chronic bilateral low back pain with bilateral *INVALID FOR* Medications Discontinued During This Encounter SENNA PLUS 8.6-50 mg per tablet 0 06/01/2017 10/04/2017 Class: Historical Med Sig: TAKE 2 TABLETS TWICE A DAY NEEDED FOR CONSTIPATION Disc: Reason for discontinue is not on file. oxyCODONE IR (ROXICODONE) 5 mg immed* 0 06/01/2017 10/04/2017 Class: Historical Med Route: ORAL Sig: Take 5 mg by mouth. Disc: Reason for discontinue is not on file. ibuprofen (ADVIL) 200 mg tablet 01/26/2017 10/04/2017 Class: Med Update Sig: Take 2 tablets 2-3 times daily as needed Disc: Reason for discontinue is not on file. Encounter Status:Closed by ASHLEY MAJOR on 10/04/17 PROGRESS Observed: 10/04/2017 Status: COMPLETED Source: [place] 10:06 AM [facility] RE[facility]IT[facility] HNO ID: [id number] Author: Ashley Echols) JEANNE Major Service: (none) Author Type: Physician [employer] Hand Engraver Type: Progress Notes Filed: 10/04/2017 1:01 PM Note Text: HISTORY AND PHYSICAL EXAMINATION SERVICE DATE: 10/04/2017 SERVICE TIME: 10 AM PRIMARY CARE PHYSICIAN: Eb Iraheta REASON FOR VISIT: Radha Li is a 61 year old female who is scheduled for SCS implant (Nevro) at the request of Dr. Shantel Pineda for routine HANDP. The patient has the following: ACTIVE PROBLEM LIST Unspecified Constipation Knee Pain Bilateral Leg Numbness S/P Lumbar Laminectomy Chronic Bilateral Low Back Pain With Bilateral Sciatica Subjective CHIEF COMPLAINT: Low back pain HPI: 61 year old female with chronic lower back pain and right lumbar radiculopathy radiating to the right foot which began after a L3-L5 laminectomy on 01/11/14. She is scheduled for SCS implant on 10/10/[address] Pineda PAST MEDICAL HISTORY Diagnosis Date - Arthritis - Arthritis of shoulder region, left - Degenerative disc disease, lumbar - Psoriasis and similar disorders - Unspecified constipation PAST SURGICAL HISTORY Procedure Laterality Date - BACK SURGERY HX 01/11/2014 Laminectomy L3-5 - COLONOSCOP W/ OR W/O [facility] SPEC 05/24/2005 Colonoscopy - LIGATE FALLOPIAN TUBE Tubal ligation - PAST SURGICAL HISTORY OF right total knee revision - REMOVAL OF TONSILS,<12 Y/O CHILDHOOD Tonsillectomy - REPAIR ING HERNIA,5+Y/O,REDUCIBL Hernia repair, inguinal - REVISE MEDIAN N/CARPAL TUNNEL SURG 1990,1991 Carpal tunnel decomp - TOTAL KNEE REPLACEMENT may 2011 right sided, manipulation 2012 FAMILY HISTORY Problem Relation Age of Onset - Asthma Father - myocardial infarction [OTHER] Father 48 - Ischemic Heart Disease Mother ARTHRITIS, HYSTERECTOMY - migraines [OTHER] Mother - Allergies Brother SOCIAL HISTORY: Social History Marital status: Spouse name: Years of education: Number of children: Occupational History 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 SENNA PLUS 8.6-50 mg per tablet TAKE 2 TABLETS TWICE A DAY NEEDED FOR CONSTIPATION amitriptyline (ELAVIL) 25 mg tablet Take 1 tablet by mouth daily at bedtime. ibuprofen (ADVIL) 200 mg tablet Take 2 tablets 2-3 times daily as needed methotrexate 2.5 mg tablet Take 2.5 mg by mouth once each week. Started by pt. Rheumtologist , 7 tabs once a week folic acid 1 mg tablet Take 2 mg by mouth once daily. HYDROXYCHLOROQUINE SULFATE (PLAQUENIL ORAL) Take 200 mg by mouth twice daily. THERAPEUTIC MULTIVITAMIN TAB Take one(1) tablet daily. No medication comments found. ALLERGIES Allergen Reactions - Balsalm Of [place] [Ba* Rash - Formaldehyde Rash - Penicillins Rash - Sulfa (Sulfonamide * Rash REVIEW OF SYSTEMS: PAIN ASSESSMENT: General: No weight loss, malaise or fevers. Neuro: No history of TIA's, stroke, STATISTICS TUTOR tumor, impaired sensorium, hemiplegia, paraplegia or quadraplegia. No neurological symptoms or problems. Respiratory: No history of current cough or dyspnea, or pneumonia in the past 6 weeks. No history of respiratory/pulmonary symptoms or problems. Cardiovascular: No history of HTN requiring medication, no history of angina, CHF, MO, cardiac surgery or stents. Denies rest pain, gangrene or revascularization/amputation for PVD. No history of cardiovascular symptoms or problems. GI: No history of GI symptoms or problems. No history of esophageal varices, recent ascites, or ETOH greater than 2 drinks per day. : No history of dysuria, frequency or incontinence,, stones or chronic kidney disease Endocrine: No history of diabetes. Has not taken steroids within the past 30 days. No history of endocrinological symptoms or problems. Hematology: No history of bleeding or clotting disorder. Pt is not taking anti-coagulation or platelet medications. No history of hematological symptoms or problems. Oncology: No history of CA metastasis, chemo within 30 days, or radiotherapy within 90 days. Has not lost 10% of body wt in 6 months. No history of oncological symptoms or problems. Psych: No history of psychiatric symptoms or problems. Musculoskeletal: Back pain and Joint pain Skin: Negative for lesions, rash and itching. Objective PHYSICAL EXAM: VITALS: There were no vitals taken for this visit. General: Alert and oriented Skin: Normal color, no rash, no lesions. HEENT: EOM, pupils equal, round and reactive. Cardiovascular: Normal S1 AND S2, no rubs, murmurs or gallops. No JVD. Lungs: Normal breath sounds, no wheezes or crackles. Abdomen: Soft, non-tender, no rigidity. Extremities: No deformity, no edema or tenderness, no joint swelling or clubbing. Neurological: Normal cognition and motor skills. Z98.890 S/P lumbar laminectomy M54.42, M54.41, G89.29 Chronic bilateral low back pain with bilateral sciatica M96.1 Failed Back Syndrome ? No results found for: HBA1C PENDING Assessment ASSESSMENT There is no known pertinent medical condition which may affect michael-operative course PLAN This patient is optimally prepared for surgery. CONSULTS: Patient does not require consults for optimization at this time. Planned Anesthetic: MAC Instructions Given to Patient: Patient given verbal and written preop instructions and voices comprehension and compliance. SIGNATURE: Ashley Major PA-C PATIENT NAME: Radha Li DATE: October 04, 2017 TIME: 10:06 AM PAGER/CONTACT #: CBC Collected: 09/26/2017 Status: F Source: [facility] 7:32 AM [facility] REPOSITORY TYPE CODE TESTS RESULT OUT OF REFERENCE UNITS RANGE LAB WBC(LOINC) 4.60-10.80 10 3/mcL WBC 6.20 LAB RBCCT(LOINC 4.20-5.40 10 6/mcL ) RBC 4.43 LAB HGB(LOINC) 12.0-16.0 G/dL Hgb 13.2 LAB HCT(LOINC) 37.0-47.0 % Hct 39.7 LAB MCV(LOINC) 80.0-94.0 fL MCV 89.6 LAB MCH(LOINC) 27.0-31.2 pg MCH 29.9 LAB MCHC(LOINC) 33.0-37.0 G/dL MCHC 33.3 LAB RDW(LOINC) 11.5-14.5 % High RDW 15.7 LAB PLT(LOINC) 130-400 10 3/mcL Platelet 316 LAB MPV(LOINC) 7.4-10.4 fL Low MPV 6.7 Performed By: #### CBC, ADIFF, ANEU, CMP, GFR #### [address] [address] .AUTO DIFF Collected: 09/26/2017 Status: F Source: [facility] 7:32 AM [facility] REPOSITORY TYPE CODE TESTS RESULT OUT OF REFERENCE UNITS RANGE LAB FRANK(LOINC) 37.0-80.0 % Neutrophil % 54.5 LAB LYM(LOINC) 10.0-50.0 % Lymphocyte % 32.2 LAB MON(LOINC) 1.7-13.0 % Monocyte % 9.0 LAB EO(LOINC) 0.0-7.0 % Eosinophil % 3.5 LAB BAS(LOINC) 0.0-2.5 % Basophil % 0.8 LAB ABLYM(LOIN 0.77-3.85 10 3/mcL C) Lymphocyte, 2.00 Absolute LAB [place](LOINC 0.15-1.00 10 3/mcL ) Monocyte, 0.60 Absolute LAB AEOS(LOINC 0.00-0.40 10 3/mcL ) Eosinophil, 0.20 Absolute LAB ABAS(LOINC 0.00-0.19 10 3/mcL ) Basophil, 0.10 Absolute Performed By: #### CBC, ADIFF, ANEU, CMP, GFR #### [address] [address] .NEUABS Collected: 09/26/2017 Status: F Source: [facility] 7:32 AM [facility] REPOSITORY TYPE CODE TESTS RESULT OUT OF REFERENCE UNITS RANGE LAB ANEU(LOINC) 2.85-6.16 10 3/mcL Neutrophil, 3.40 Absolute Performed By: #### CBC, ADIFF, ANEU, CMP, GFR #### [address] [address] CMP Collected: 09/26/2017 Status: F Source: [facility] 7:32 AM [facility] REPOSITORY TYPE CODE TESTS RESULT OUT OF REFERENCE UNITS RANGE LAB 1547-9 80-115 mg/dL GLUCOSE 89 LAB NA(LOINC) 136-146 mEq/L Sodium Level 139 LAB K(LOINC) 3.5-5.1 mEq/L Potassium Level 4.8 LAB CL(LOINC) 98-107 mEq/L Chloride 104 LAB CO2(LOINC) 23-31 mEq/L CO2 29 LAB EBAL(LOINC mEq/L ) Electrolyte Balance 6.0 LAB BUN(LOINC) 7.0-18.0 mg/dL BUN 16.1 LAB CRE(LOINC) 0.6-1.2 mg/dL Creatinine Lvl (s) 0.6 LAB BC(LOINC) 7-27 ratio BUN/Creatinine 27 Ratio LAB CA(LOINC) 8.4-10.2 mg/dL Calcium Lvl 9.5 LAB PROT(LOINC 6.0-8.3 G/dL ) Total Protein 6.6 LAB ALB(LOINC) 3.4-4.8 G/dL Albumin Level 4.2 LAB GLB(LOINC) G/dL Globulin 2.4 LAB AG(LOINC) 1.1-2.5 ratio A/G Ratio 1.8 LAB BILT(LOINC 0.2-1.0 mg/dL ) Bili Total 0.3 LAB AP(LOINC) 40-135 IU/L Alk Phos 104 LAB AST(LOINC) 10-40 IU/L AST/SGOT 18 LAB ALT(LOINC) 10-35 IU/L ALT/SGPT 16 Performed By: #### CBC, ADIFF, ANEU, CMP, GFR #### [place] [address] .GFR Collected: 09/26/2017 Status: F Source: [facility] 7:32 AM FOUNDATION REPOSITORY TYPE CODE TESTS RESULT OUT OF REFERENCE UNITS RANGE LAB GFRAA(LOINC ml/min/1.73 ) sqm GFR 128 Swedish Result Comment: GFR Population mean for , Non- Americans Ages 20-29 = 116 mL/min/1.73 sq.m. Ages 30-39 = 107 mL/min/1.73 sq.m. Ages 40-49 = 99 mL/min/1.73 sq.m. Ages 50-59 = 93 mL/min/1.73 sq.m. Ages 60-69 = 85 mL/min/1.73 sq.m. Ages 70+ = 75 mL/min/1.73 sq.m. Chronic Kidney Disease: Less than 60 mL/min/1.73 square meters End Stage Renal Disease: Less than 15 mL/min/1.73 square meters LAB GFRNO(LOINC) ml/min/1.73sqm GFR Non- >60 Result Comment: GFR Population mean for , Non- Americans Ages 20-29 = 116 mL/min/1.73 sq.m. Ages 30-39 = 107 mL/min/1.73 sq.m. Ages 40-49 = 99 mL/min/1.73 sq.m. Ages 50-59 = 93 mL/min/1.73 sq.m. Ages 60-69 = 85 mL/min/1.73 sq.m. Ages 70+ = 75 mL/min/1.73 sq.m. Chronic Kidney Disease: Less than 60 mL/min/1.73 square meters End Stage Renal Disease: Less than 15 mL/min/1.73 square meters Performed By: #### CBC, ADIFF, ANEU, CMP, GFR #### [place] [address] [address] PAP I-G W/RFX HRHPV Collected: 09/08/2017 Status: F Source: [place] 2:45 PM [facility] REPOSITORY Order Comment: CYTOLOGY INFORMATION: - CLINICAL INFORMATION: POSTMENOPAUSAL - DATE LMP/MENOPAUSE: MENOPAUSE - COLLECTION VIAL: Thin Prep Vial - APPRENTICE SOURCE: CERVICAL/ENDOCERVICAL/VAGINA - COLLECTION TECHNIQUE: BRUSH/SPATULA Specimen Comment: [id number] Specimen Comment: No. of containers..01 ThinPrep Vial TYPE CODE TESTS RESULT OUT OF RANGE REFERENCE UNITS LAB L7400.0800 . Normal DIAGN Comment Result Comment: NEGATIVE FOR INTRAEPITHELIAL LESION AND MALIGNANCY. CELLULAR CHANGES ASSOCIATED WITH ATROPHY ARE PRESENT. THIS SPECIMEN WAS RESCREENED PART OF OUR SUPERVISOR INSPECTION AND TESTING PROGRAM. LAB L7400.0900 . Normal ADEQ Comment Result Comment: Satisfactory for evaluation. Endocervical component may not be distinguished in cases of atrophy. LAB L7400.1400 . Normal PERFORM Comment Result Comment: Juan Jose Amin, Box Feeder (ASCP) LAB L7400.1500 . Normal QC Comment REV Result Comment: Agnes Avendaño, Supervisory Box Feeder (ASCP) LAB L7400.2575 . Normal TEST METHOD Comment Result Comment: This liquid based ThinPrep(R) pap test was screened with the use of an image guided system. LAB L7400.2600 . Normal . COMM LAB L7400.2700 . Normal PAPSMR Comment Result Comment: The Pap smear is a screening test designed to aid in the detection of premalignant and malignant conditions of the uterine cervix. It is not a diagnostic procedure and should not be used as the sole means of detecting cervical cancer. Both false-positive and false-negative reports do occur. LAB L7400.2800 . Normal HPV RFLX Comment Result Comment: The HPV DNA reflex criteria were not met with this specimen result therefore, no HPV testing was performed. Performed at: [address] [id number] Plane Tender: Dori Menjivar MD, Phone: [phone] Performed By: #### L7400.0350 #### [facility] (refer to report for specific site) refer to report for address and phone number PROGRESS Observed: 08/26/2017 Status: COMPLETED Source: [place] 10:50 AM [facility] REPOSITORY HNO ID: [id number] Author: JEANNE Gong Service: (none) Author Type: Physician Soft Metals Hand Engraver Type: Progress Notes Filed: 08/26/2017 11:04 AM Note Text: Surgical request: Date: 10/10/2017 Location: [place] Patient Class: Ambulatory Surgery Anesthesia Type: MAC Case Class: Elective Surgeon: Dr. Shantel Pineda Diagnosis: Z98.890 S/P lumbar laminectomy (primary encounter diagnosis) M54.42, M54.41, G89.29 Chronic bilateral low back pain with bilateral sciatica M96.1 Failed back syndrome Primary Procedure: SCS Implant (NEVRO) HOSP Observed: 08/26/2017 Status: COMPLETED Source: [place] 12:00 AM [facility] REPOSITORY Patient Update (PAINMN) RADHA LI ([id number]) 1955 F Date Time Provider Department 08/26/17 FRANKY PHILLIPS PAINMN During your visit today, we recorded the following information about you: Franky Phillips PA-C, PA 08/26/2017 11:04 AM Signed Surgical request: Date: 10/10/2017 Location: [place] Patient Class: Ambulatory Surgery Anesthesia Type: MAC Case Class: Elective Surgeon: Dr. Shantel Pineda Diagnosis: Z98.890 S/P lumbar laminectomy (primary encounter diagnosis) M54.42, M54.41, G89.29 Chronic bilateral low back pain with bilateral sciatica M96.1 Failed back syndrome Primary Procedure: SCS Implant (NEVRO) Allergies As of Date: 08/26/2017 Noted Allergy Reaction BALSALM OF MIKE (BALSAM MIKE) 03/10/2016 2 - Rash FORMALDEHYDE 03/10/2016 2 - Rash PENICILLINS 04/15/2005 2 - Rash SULFA (SULFONAMIDE ANTIBIOTICS) 04/15/2005 2 - Rash Date Reviewed: 07/13/2017 Reviewed by: Lucy Dodson RN - Fully Assessed Primary Visit Diagnosis:S/P lumbar laminectomy [Z98.890] Other Visit Diagnoses:Chronic bilateral low back pain with bilateral sciatica [M54.42, M54.41, G89.29] Failed back syndrome [M96.1] Order(s):BASIC METABOLIC PNL [SQBMP] Order #: [id number] FUTURE CBC + DIFF [SQCBCDIF] Order #: [id number] FUTURE ECG COMPLETE W INTERPRETATION [ECG01] Order #: [id number] FUTURE HANDP FOR SURGERY [[id number]] Order #: [id number] [facility] [[id number]] Order #: [id number] REFER FOR ADMIT INTERVIEW [[id number]] Order #: [id number] Prescriptions as of 08/26/2017 Sig: OXYCODONE 5 MG TABLET Take 5 mg by mouth. SENNA PLUS 8.6 MG-50 MG TABLET TAKE 2 TABLETS TWICE A DAY * AMITRIPTYLINE 25 MG TABLET Take 1 tablet by mouth daily * IBUPROFEN 200 MG TABLET Take 2 tablets 2-3 times suzi* METHOTREXATE SODIUM 2.5 MG TA* Take 2.5 mg by mouth once eac* FOLIC ACID 1 MG TABLET Take 2 mg by mouth once daily. PLAQUENIL ORAL Take 200 mg by mouth twice da* THERAPEUTIC MULTIVITAMIN TABL* Take one(1) tablet daily. Problem List As Of Date 08/26/2017 Noted Resolved CONSTIPATION NOS [K59.00] Knee pain [M25.569] INVALID FOR* Bilateral leg numbness [R20.0] INVALID FOR* S/P lumbar laminectomy [Z98.890] INVALID FOR* Chronic bilateral low back pain with bilateral *INVALID FOR* Follow-up and Disposition History Recorded Encounter Status:Closed by FRANKY PHILLIPS PA-C on 08/26/17 PROGRESS Observed: 07/13/2017 Status: COMPLETED Source: [place] 11:48 AM [facility] [place] REPOSITORY HNO ID: [id number] Author: Shantel Pineda Service: (none) Author Type: Physician Type: Progress Notes Filed: 07/22/2017 11:36 AM Note Text: SUBJECTIVE: Radha Li presents to [facility] Pain Management Department for a follow-up appointment for Low back and right leg pain. She states he is now approved for SCS implant ( Nevro) , however she had left shoulder shoulder replacement in May 2016. He back pain started in 2013 , she had back surgery in 2013. However her pain was not controlled after surgery. She had Nevro SCS trial in August,, which gave her adequate pain relief. She was approved for implant , however she had left shoulder surgery in May. Her orthopedic surgeon wants to wait for 3 months before another surgery. Since the last visit, Radha Li states the pain has been stable. Current pain intensity is 3 on a scale of 0 -10. Pain Location: lower back, right leg Duration: Since 2013 Pain character: Pins and needles, bumble bees in the leg. The back pain is described as aching Exacerbating factors: standing and walking Alleviating factors: Bending PLAN on January 26, 2017 1. Patient to call insurance company to obtain the approcal for the SCS Ben implant 2. Continue Ibuprofen 400mg 2-3 times daily as needed 3. Continue Amitriptyline 25 mg at bedtime. 4. Call the office after discussion with insurance company about the SCS Nevro implant 5. Continue to be as active as possible 6. Counseled patient regarding the importance of activity, and exercise ? Pain Medications: - Opioids: None - NSAIDs: None - Anti-Depressants: Amitriptyline - Anti-Convulsants: None - Others: None Opioid agreement: Yes OARRS report: Reviewed: The patient's OARRS report was reviewed and is consistent with the reported medication use. Pain medications reviewed: Yes Pain Procedures: Nevro Trial in August 2016 Physical Therapy/Home Exercise: Yes Imagin01/08/2016 Counting reference: ?Lumbosacral junction. ?For the purposes of this report, L4-5 is considered the level of the iliac crest. Alignment: ? ?Mild scoliosis with convexity to the right centered at the mid lumbar level. Bone marrow signal/fracture: ? ?Mild endplate degenerative signal change and associated enhancement seen at L3-L4 and L4-L5. ?No evidence of prior fracture. ?Partial laminectomy defects noted at several mid and lower lumbar levels. Conus: ? ?The conus is within normal limits of signal intensity and morphology. ? Paraspinal soft tissues: ? ?Enhancing granulation tissue in the laminectomy beds. Lower thoracic spine: ?Mild bulging annulus at T11-T12. ?No significant canal or foraminal narrowing at that level. T12-L1: ?Canal and foramina are patent. L1-L2: ? ?Mild bulging annulus. ?No significant canal or foraminal narrowing. L2-L3: ? ?Bulging annulus and moderate facet degenerative change. ?Mild canal stenosis. ?Severe bilateral foraminal narrowing. L3-L4: ? ?Bulging annulus with superimposed central disc extrusion. ? Moderate to severe facet degenerative changes. ?Mild canal stenosis. ? Severe left and moderate right foraminal narrowing. ?Left foraminal disc protrusion seen. L4-L5: ? ?Bulging annulus and moderate facet degenerative changes. ? Bilateral subarticular recess narrowing. ?No canal stenosis. ?Severe bilateral foraminal narrowing seen, worse on the right. L5-S1: ? ?Mild bulging annulus and superimposed 3 mm left paracentral disc extrusion seen. ?No significant canal stenosis. ?Moderate facet degenerative changes seen. ?Severe bilateral foraminal narrowing. Sacrum and iliac wings: ? ?The visualized sacrum and iliac wings are within normal limits. When compared to the prior examination, foraminal narrowing at some levels has slightly progressed. On postcontrast images, some areas of enhancement are seen involving the ventral aspect of the canal at the L5-S1 level, indicating component of postoperative granulation tissue. ?Enhancement in the laminectomy beds also is reflective of granulation tissue. REVIEW OF SYSTEMS: GENERAL: No weight loss, malaise or fevers. HEENT: Negative for frequent or significant headaches. NECK: Negative for lumps, goiter, pain and significant neck swelling. RESPIRATORY: Negative for cough, wheezing or shortness of breath. CARDIOVASCULAR: Negative for chest pain, leg swelling or palpitations. GI: Negative for abdominal discomfort, blood in stools or black stools or change in bowel habits. MUSCULOSKELETAL: SEE HPI SKIN: Negative for lesions, rash, and itching. + Psoriasis PSYCH: Negative for sleep disturbance, mood disorder and recent psychosocial stressors. HEMATOLOGY/LYMPHOLOGY: Negative for prolonged bleeding, bruising easily or swollen nodes. NEURO: No history of headaches, syncope, paralysis, seizures or tremors. All other reviewed and negative other than HPI. Past Medical History: PAST MEDICAL HISTORY Diagnosis Date - Arthritis - Arthritis of shoulder region, left - Degenerative disc disease, lumbar - Psoriasis and similar disorders - Unspecified constipation Past Surgical History: PAST SURGICAL HISTORY Procedure Laterality Date - BACK SURGERY HX 01/11/2014 Laminectomy L3-5 - COLONOSCOP W/ OR W/O [facility] SPEC 05/24/2005 Colonoscopy - LIGATE FALLOPIAN TUBE Tubal ligation - PAST SURGICAL HISTORY OF right total knee revision - REMOVAL OF TONSILS,<12 Y/O CHILDHOOD Tonsillectomy - REPAIR ING HERNIA,5+Y/O,REDUCIBL Hernia repair, inguinal - REVISE MEDIAN N/CARPAL TUNNEL SURG 1990,1991 Carpal tunnel decomp - TOTAL KNEE REPLACEMENT may 2011 right sided, manipulation 2011 Family History: FAMILY HISTORY Problem Relation Age of Onset - Asthma Father - myocardial infarction [OTHER] Father 48 - Ischemic Heart Disease Mother ARTHRITIS, HYSTERECTOMY - migraines [OTHER] Mother - Allergies Brother Social History: Social History Marital status: Spouse name: Years of education: Number of children: Occupational History 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 PHYSICAL EXAMINATION: General appearance: Well appearing, in no acute distress, alert. Psych: Mood and affect appropriate. Skin: Skin color, texture, turgor normal, no rashes or lesions. Head/face: Atraumatic, normocephalic. Neck: No pain to palpation over the cervical paraspinous muscles. Spurling Negative. No pain with neck flexion, extension, or lateral flexion. Cor: None Pulm: None Back: Straight leg raising in the sitting and supine positions is negative to radicular pain. Pain to palpation over the spine . Normal range of motion without pain reproduction. Extremities: Peripheral joint ROM is full and pain free without obvious instability or laxity in all four extremities. No deformities, edema, or skin discoloration. Good capillary refill. Left shoulder was in brace Musculoskeletal: hip, sacroiliac and knee provocative maneuvers are negative. Bilateral upper and lower extremity strength is normal and symmetric. No atrophy or tone abnormalities are noted. Neuro: Bilateral upper and lower extremity coordination and muscle stretch reflexes are physiologic and symmetric. Plantar response are downgoing. No loss of sensation is noted. Gait: normal. ASSESSMENT: 61 year old female with chronic lower back pain and right lumbar radiculopathy to the big toe that began 3 months after a L3-L5 laminectomy on 01/11/[address] Munoz. She has tried lumbar NEO x 6, physical therapy, Lyrica, Gabapentin, and a TENS unit which have provided her with minimal pain relief. She then underwent a SCS trial Nevro on 08/23/16 which provided her with approximately 70% pain relief and was able to walk farther, work in her garden and stand up straighter. She is now approved for Nevro SCS implant. We will schedule her for implant surgery in September. She also states Amitriptyline is helping her with sleep and pain. Z98.890 S/P lumbar laminectomy M54.42, M54.41, G89.29 Chronic bilateral low back pain with bilateral sciatica M96.1 Failed Back Syndrome PLAN: 1) Continue Amitriptyline 25 mg PO QHS 2) RTC September for Spinal cord stimulator implant NEVRO 3) Counseled patient regarding the importance of exercise. The above plan and management options were discussed at length with patient. Patient is in agreement with the above and verbalized understanding. Keyon Bone MD July 13, 2017 Staff Note I was physically present during the brower portions of the Service. I confirmed the brower findings and directed the treatment plans in decision making. Shantel Pineda MD, PhD ALLERGIES ALLERGIES DATE TYPE / CODE NAME / CODE REACTION SEVERITY SOURCE 05/09/2018 Drug Penicillins/[id number] Rash Unknown [place] Allergy/416 476(RXNORM) Community 096216([facility] ED CT) Repository 05/09/2018 Drug Sulfa (Sulfonamide Rash Unknown [place] Allergy/416 Antibiotics)/J78587 Community 548735([facility] 05/09/2018 Drug balsam Rash Unknown [place] Allergy/416 mike/[id number](RXN Community 452146([facility] OR) [facility] ED CT) Repository 05/09/2018 Drug formaldehyde/D42794 Rash Unknown [place] Allergy/416 3204(RXNORM) Community 889499([facility] ED CT) Repository 05/09/2018 Drug latex/[id number](RX Rash Unknown [place] Allergy/416 NORM) Community 397428([facility] ED CT) Repository 03/10/2016 DRUG BALSAM MIKE RASH [facility] INGREDI/[address] 245549(SNOM Repository ED CT) 03/10/2016 DRUG FORMALDEHYDE RASH [facility] INGREDI/[address] 068467(SNOM Repository ED CT) 04/15/2005 Drug PENICILLINS RASH [facility] Class/86268 [address] [place] 1003(SNOMED Repository CT) 04/15/2005 Drug SULFA (SULFONAMIDE RASH [facility] Class/16983 ANTIBIOTICS) [address] [place] 1003(SNOMED Repository CT) ENCOUNTERS ENCOUNTERS ADMIT/DISCHARGE ACCOUNT NUMBER ADMITTING ENCOUNTER LOCATION SOURCE CLASS 06/13/2018/06/13/19 [id number] Ambulatory BBuilding:[address] Repository 05/17/2018/05/19/20 [id number] Jaspreet, Inpatient [address] ding:ZN1Uflm Repository : UV944Wfo: 1 05/09/2018 [id number] Ambulatory BMSBuilding: [facility] Repository 03/17/2018/03/17/20 [id number] Ambulatory [address] ding:[facility] Repository 03/09/2018 [id number] Ambulatory [facility] ding:LAB Repository 02/20/2018 [id number] Ambulatory [facility] ding:LABSPEC Repository 12/19/2017/12/20/[id number] ding:OLAB [facility] Repository 11/22/2017/11/23/19 [id number] Ambulatory [address] Repository 11/01/2017 [id number] Ambulatory [facility] ding:OPBI Repository 10/24/2017/10/26/19 [id number] Ambulatory [address] Repository 10/17/2017 [id number] Ambulatory [facility] Repository 10/10/2017/10/11/19 [id number] TAMMY, Ambulatory [address] Repository 10/10/2017/10/15/19 [id number] Ambulatory [address] Repository 10/04/2017/10/05/19 [id number] Ambulatory [address] Repository 10/04/2017/10/05/19 [id number] Ambulatory [address] Repository 10/04/2017 [id number] Ambulatory [facility] Repository 10/04/2017/10/08/19 [id number] Ambulatory [address] Repository 09/26/2017/09/27/[id number] ding:[facility] Repository 09/08/2017 [id number] Ambulatory [facility] ding:LABSPEC Repository 07/13/2017/07/13/19 [id number] Ambulatory [address] Repository PAYERS PAYERS ENCOUNTER GUARANTOR PAYER SUBSCRIBER SOURCE 06/13/2018 RADHA FERNANDEZOB: Primary [facility] Insurance:MEDICAL STROUPDOB: [facility] 6018Policy [id number] Repository [place], [place] Number: [place] [email or web address] [id number] [place], [place] Lamberto: Date:2018-06-13 67688Xfi: [phone] [phone] (HP)Tel: [phone]) Name:[facility] BOX (HP) (WP) [address] [place] [address] 000-0000 (WP) [id number]: 05/17/2018 RADHA LI829 Primary JEFFREY STROUPDOB: [facility] Insurance:MEDICAL [id number] [address]Liw: (783) Number: Repository [phone] () [id number] Date:6779-31-29SD[address] [address]UV: 05/17/2018 Secondary NOT GIVENUNK [place] Insurance:SELF PAY [facility] Number: Effective Repository Date:2018-04-14 05/09/2018 RADHA LI829 Primary JEFFREY STROUPDOB: [facility] Insurance:MEDICAL [id number] Health [address]Ise: (737) Number: Repository [phone] () [id number] Date:0739-56-11AA[address] [address]XI: 05/09/2018 Secondary NOT GIVENUNK [place] Insurance:SELF PAY [facility] Number: Effective Repository Date:2018-05-09 03/17/2018 RADHA FERNANDEZOB: Primary JEFFREY [facility] Insurance:MEDICAL STROUPDOB: [address] [id number] Repository [place], [place] Number: MUNDAY [id number]~[email or web address] [id number] [place], [place] Lamberto: Date:2018-03-17 682[address]Btw: [phone] [phone] (HP)Tel: [phone]) Name:[facility] (HP) (WP) [address] [place] [address] 000-0000 (WP) [id number]: 03/09/2018 RADHA LI829 Primary JEFFREY STROUPDOB: [facility] Insurance:MEDICAL [id number] Health [address]Jhk: ([phone]) Number: Repository [phone] () [id number] Date:6980-22-67MP[address] [address]CD: 03/09/2018 Secondary NOT GIVENUNK [place] Insurance:SELF PAY [facility] Number: Effective Repository Date:2018-03-09 02/20/2018 RADHA LI829 Primary JEFFREY STROUPDOB: [facility] Insurance:MEDICAL [id number] Health [address]Koe: 330) Number: Repository [phone] () [id number] Date:3539-04-80XHC[place] [id number]: 02/20/2018 Secondary NOT GIVENUNK [place] Insurance:SELF PAY [facility] Number: Effective Repository Date:2018-02-20 12/19/2017 RADHA NEGRON: Primary JEFFREY [facility] Insurance:MEDICAL STROUPDOB: [address] [id number] Repository [place], [place] Number: MUNDAY [email or web address] [id number] [place], [place] RONAL.LILIANAel: Date:2017-12-1920899Wli: [phone] [phone] ()Tel: [phone]) Name:Lyly TOM () (WP) [address] [place] [address] 000-0000 (WP) [id number]: 11/01/2017 RADHA ZHU Primary JEFFREY STROUPDOB: [facility] Insurance:MEDICAL [id number] [facility] [address]Wch: Number: Repository [phone] [id number] [id number] (HP) Date:9620-15-66UY [address] [place] [address]IN: 11/01/2017 Secondary NOT GIVENUNK [place] Insurance:SELF PAY [facility] Number: Effective Repository Date:2017-09-09 09/26/2017 RADHA FERNANDEZOB: Primary JEFFREY [facility] Insurance:MEDICAL STROUPDOB: [address] [id number] Repository [place], [place] Number: MUNDAY [id number]~[email or web address] [id number] [place], [place] COMTel: Date:2017-09-26 73[address]Rly: [phone] [phone] (HP)Tel: ([phone]) Name:Lyly SANTOS (HP) (WP) [address] [place] [address] 000-0000 (WP) 11947AF: 09/08/2017 Radha [id number] Primary JEFFREY STROUPDOB: [place] MUNDAY Insurance:MEDICAL [id number] Health [address]Sdq: Number: Repository [phone] [id number] (HP) Date:5730-96-28YO [address] [place] [phone]: 09/08/2017 Secondary NOT GIVENUNK [place] Insurance:SELF PAY [facility] Number: Effective Repository Date:2017-09-08
== END 2018-05-19 16:07 | disposition home or self-care (01) | DRG 468 ==
LOC: ACINP 11:08 → MS3 12:58
PROVIDERS: Physician Assistant Surgical; Admitting Provider Specialist; Family Provider Family Medicine; PCP Family Medicine; Referring Provider Specialist; Visit Provider Specialist
PROC: 0SPC0JZ Removal of Synthetic Substitute from Right Knee Joint, Open Approach (ICD-10-PCS; principal; 2018-05-17 12:50)
DX: T84.032A Mechanical loosening of internal right knee prosthetic joint, initial encounter (principal); T84.84XA Pain due to internal orthopedic prosthetic devices, implants and grafts, initial encounter; Y83.1 Surgical operation with implant of artificial internal device as the cause of abnormal reaction of the patient, or of later complication, without mention of misadventure at the time of the procedure; Z96.651 Presence of right artificial knee joint; M06.9 Rheumatoid arthritis, unspecified; L40.9 Psoriasis, unspecified
CPT/HCPCS: 36415; 73560; 80048; 85025; 85027; 87015; 87070; 87075; 87081; 87102; 87116; 87205; 87206; 93005; 97110; 97161; 97165; 97530; 99251; C1776; J7040; J7120; G0463; J2405

== ENCOUNTER → 2018-11-02 | Outpatient (CLI) | payer OTHER, SELFPAY ==
[2018-05-17 18:54] VITALS: BMI 31.6
--- NOTE | 2018-11-02 14:28 | BI_ITS ---
MAMMOGRAPHY - BILATERAL SCREENING REASON FOR EXAM: Female, 62 years old. Routine annual screening examination. PERTINENT HISTORY: Non-contributory. TECHNIQUE: Digital bilateral breast tisha (3D mammographic acquisition) in the CC and MLO projections. 2-D mediolateral oblique (MLO) and craniocaudad (CC) views of both breasts were obtained. CAD: Full Field Digital Mammography with Computer Added Detection was performed. COMPARISON: Comparison is made with prior study dated November 01, 2017 and October 19, 2016. FINDINGS: Breast Composition: The breasts are heterogeneously dense, which may obscure small masses. There are no dominant masses or suspicious calcifications. Small bilateral axillary lymph nodes. No other significant abnormalities are identified. There has been no significant change since the prior study. BI/SCREEN MAMM (CAD) W/TISHA BILAT IMPRESSION: Stable bilateral screening mammogram. Yearly follow-up mammogram recommended. (A) ASSESSMENT CATEGORY: BIRADS Category 2: Benign. A letter regarding these results will be sent to the patient by the facility within 30 days. Approximately 10% of breast cancers are not detected by mammography. A normal mammogram should not delay biopsy of a clinically suspicious abnormality. [id number] Electronically Signed: Collin Castañeda, at 15:38 EDT , Service support ,
== END | disposition home or self-care (01) ==
LOC: OPBI 14:26
PROVIDERS: Family Provider Family Medicine; PCP Family Medicine; Referring Provider Family Medicine; Visit Provider Family Medicine
DX: Z12.31 Encounter for screening mammogram for malignant neoplasm of breast (principal)
CPT/HCPCS: 77063; 77067

== ENCOUNTER → 2018-11-09 | Outpatient (CLI) | payer OTHER, SELFPAY ==
[2018-05-17 18:54] VITALS: BMI 31.6
[2018-11-09 15:57] LABS: Potassium 4.2 mmol/L (3.5-5.1)
== END | disposition home or self-care (01) ==
LOC: MFPLAB 15:01
PROVIDERS: Family Provider Family Medicine; PCP Family Medicine; Referring Provider Family Medicine; Visit Provider Family Medicine
DX: R79.0 Abnormal level of blood mineral (principal)
CPT/HCPCS: 36415; 84132

== ENCOUNTER → 2019-05-07 15:42 | Outpatient (CLI) | payer MEDICARE, SELFPAY ==
[2018-05-17 18:54] VITALS: BMI 31.6
--- NOTE | 2019-05-07 15:48 | RAD_ITS ---
STUDY: X-RAY - RIGHT SHOULDER REASON FOR EXAM: Female, 63 years old. Inflammatory polyarthropathy TECHNIQUE: 4 view(s) of the shoulder. COMPARISON: None. FINDINGS: Spinal stimulating catheter is seen in the thoracic spine region. The glenohumeral joint space is mildly narrowed. A small to moderate size osteophyte is present at the medial inferior aspect of the humeral head. Normal acromioclavicular joint. Normal acromion. Normal humeral head and visualized proximal humerus. The soft tissue structures are unremarkable. There is no demonstrated fracture. Normal visualized pulmonary apex. 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
--- NOTE | 2019-05-07 15:48 | RAD_ITS ---
STUDY: X-RAY - LEFT SHOULDER REASON FOR EXAM: Female, 63 years old. inflammatory polyarthropathy TECHNIQUE: 4 view(s) of the shoulder. COMPARISON: None. FINDINGS: The left shoulder prosthetic components demonstrate good bony contact and alignment and no complications. Normal acromioclavicular joint. Normal acromion. Normal humeral head and visualized proximal humerus. The soft tissue structures are unremarkable. There is no demonstrated fracture. Normal visualized pulmonary apex. RAD/Shoulder min 2 Views IMPRESSION: No acute process demonstrated Electronically Signed: Pablo Salas MD at 10:42 EST , Service support ,
== END ==
LOC: MTLAB 15:45 → MTRAD 15:45
PROVIDERS: Family Provider Family Medicine; PCP Family Medicine; Referring Provider Internal Medicine Rheumatology; Visit Provider Internal Medicine Rheumatology
DX: M06.4 Inflammatory polyarthropathy (principal); Z79.899 Other long term (current) drug therapy; M15.9 Polyosteoarthritis, unspecified; M17.0 Bilateral primary osteoarthritis of knee; K21.9 Gastro-esophageal reflux disease without esophagitis; M96.1 Postlaminectomy syndrome, not elsewhere classified
CPT/HCPCS: 73030

== ENCOUNTER → 2019-11-07 11:06 | Outpatient (CLI) | payer MEDICARE, SELFPAY ==
[2018-05-17 18:54] VITALS: BMI 31.6
--- NOTE | 2019-11-07 11:19 | BI_ITS ---
MAMMOGRAPHY - BILATERAL SCREENING REASON FOR EXAM: Female, 63 years old. Routine annual screening examination. PERTINENT HISTORY: Non-contributory. TECHNIQUE: Digital bilateral breast tisha (3D mammographic acquisition) in the CC and MLO projections. 2-D mediolateral oblique (MLO) and craniocaudad (CC) views of both breasts were obtained. CAD: Full Field Digital Mammography with Computer Added Detection was performed. COMPARISON: Comparison is made with prior study dated November 02, 2018 and November 01, 2017. FINDINGS: Breast Composition: The breasts are heterogeneously dense, which may obscure small masses. There are no dominant masses or suspicious calcifications. No other significant abnormalities are identified. There has been no significant change since the prior study. BI/SCREEN MAMM (CAD) W/TISHA BILAT IMPRESSION: Stable bilateral screening mammogram. Yearly follow-up mammogram recommended. (A) ASSESSMENT CATEGORY: BIRADS Category 1: Negative. A letter regarding these results will be sent to the patient by the facility within 30 days. Approximately 10% of breast cancers are not detected by mammography. A normal mammogram should not delay biopsy of a clinically suspicious abnormality. [id number] Electronically Signed: Collin Castañeda, at 12:23 EDT , Service support ,
--- NOTE | 2019-11-07 11:23 | BD_ITS ---
STUDY: DUAL ENERGY X-RAY ABSORPTIOMETRY / DXA REASON FOR EXAM: Female, 63 years old. 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 TECHNIQUE: Bone Mineral Density (BMD) measurements of lumbar spine and bilateral hips were obtained. COMPARISON: Comparison is made with prior examination dated October 19, 2016. FINDINGS: Lumbar Spine (L1-L4): g/cm2 (1.107) / T-score (-0.5) / Z-score (1.1) Findings are suggestive of normal bone density with a low fracture risk. Left Femur Total: g/cm2 (0.872) / T-score (-1.1) / Z-score (0.2) Left Femoral Neck: g/cm2 (0.845) / T-score (-1.4) / Z-score (0.1) Right Femur Total: g/cm2 (0.681) / T-score (-2.6) / Z-score (-1.4) Right Femoral Neck: g/cm2 (0.672) / T-score (-2.6) / Z-score (-1.1) The T-Scores on the most recent prior examination were: Lumbar Spine (L1-L4): There has been worsening of bone density since the previous examination. Left Femur Total: which represents a worsening of 1.9%. Right Femur Total: which represents a worsening of 10.5%. BD/Dexa Bone Density Study IMPRESSION: The patient is considered osteoporotic as outlined below according to World Rick Organization (WHO) criteria with a high fracture risk. There has been worsening of bone density since the previous examination. Reference Information: The T-score is the number of standard deviations above or below the standard which is normal for young adults at their peak bone mineral density. The World Health Organization (WHO) interprets the T-scores as follows: Above -1 Normal bone density Between -1 and -2.5 Osteopenia Equal to / or below -2.5 Osteoporosis As a practical clinical guideline, osteopenia may be graded as follows: Mild -1 through -1.5 Moderate -1.6 through -2.0 Severe -2.1 through -2.4 The Z-score is the number of standard deviations above or below age-matched controls. A Z-score of less than -1.5 would be considered abnormal. References: 1. NIH Osteoporosis and Related Bone Diseases http://www.osteo.org 2. International Society for Clinical Densitometry http://www.iscd.org 3. National Osteoporosis Foundation http://www.nof.org Electronically Signed: Collin Castañeda, at 8:04 EDT , Service support ,
== END ==
PROVIDERS: PCP Family Medicine; Referring Provider Family Medicine; Visit Provider Family Medicine
DX: Z00.00 Encounter for general adult medical examination without abnormal findings (principal); Z12.31 Encounter for screening mammogram for malignant neoplasm of breast; M85.80 Other specified disorders of bone density and structure, unspecified site; Z78.0 Asymptomatic menopausal state
CPT/HCPCS: 77063; 77067; 77080

== ENCOUNTER → 2020-12-01 14:32 | Outpatient (CLI) | payer MEDICARE, SELFPAY ==
[2018-05-17 18:54] VITALS: BMI 31.6
--- NOTE | 2020-12-01 14:34 | BI_ITS ---
MAMMOGRAPHY - BILATERAL SCREENING REASON FOR EXAM: Female, 64 years old. Routine annual screening examination. PERTINENT HISTORY: Non-contributory. TECHNIQUE: Digital bilateral breast tisha (3D mammographic acquisition) in the CC and MLO projections. 2-D mediolateral oblique (MLO) and craniocaudad (CC) views of both breasts were obtained. CAD: Full Field Digital Mammography with Computer Added Detection was performed. COMPARISON: Comparison is made with prior examination dated 11/02/2018 and 11/07/2019. FINDINGS: Breast Composition: The breasts are heterogeneously dense, which may obscure small masses. There are no dominant masses or suspicious calcifications. Stable benign-appearing bilateral axillary nodes. No other significant abnormalities are identified. There has been no significant change since the prior study. BI/SCRN MAMM (CAD)W/TISHA BILAT IMPRESSION: Stable bilateral screening mammogram. Yearly follow-up mammogram recommended. (A) ASSESSMENT CATEGORY: BIRADS Category 2: Benign. A letter regarding these results will be sent to the patient by the facility within 30 days. Approximately 10% of breast cancers are not detected by mammography. A normal mammogram should not delay biopsy of a clinically suspicious abnormality. [id number] Electronically Signed: Collin Castañeda MD at 15:20 EDT , Service support ,
== END ==
PROVIDERS: PCP Family Medicine; Referring Provider Family Medicine; Visit Provider Family Medicine
DX: Z12.31 Encounter for screening mammogram for malignant neoplasm of breast (principal)
CPT/HCPCS: 77063; 77067

== ENCOUNTER 2021-07-06 14:00 | Outpatient (CLI) | payer MEDICARE, SELFPAY ==
[2021-07-06 16:02] LABS: Anion Gap 5 (5-15); BUN 13 mg/dL (7-18); BUN/Creat Ratio 20.9 RATIO (10-20); Calcium,Total 9.4 mg/dL (8.5-10.1); Chloride 108 mmol/L (98-107); Creatinine, Serum 0.62 mg/dL (0.55-1.02); EST Glomerular Filtration Rate 101 mL/min (>60); Est Glom Filt Rate - Afr Amer 123 mL/min (>60); Glucose 77 mg/dL (74-106); Potassium 3.8 mmol/L (3.5-5.1); Sodium Level 141 mmol/L (136-145)
== END 2021-07-06 23:59 | disposition short-term general hospital (02) ==
LOC: MFPLAB 14:01
PROVIDERS: PCP Family Medicine; Visit Provider Family Medicine
DX: E87.5 Hyperkalemia (principal)
CPT/HCPCS: 36415; 80048

== ENCOUNTER 2021-12-31 14:06 | Outpatient (CLI) | payer MEDICARE, SELFPAY ==
--- NOTE | 2021-12-31 14:09 | BI_ITS ---
MAMMOGRAPHY - BILATERAL SCREENING REASON FOR EXAM: Female, 66 years old. Routine annual screening examination. PERTINENT HISTORY: Non-contributory. TECHNIQUE: Digital bilateral breast tisha (3D mammographic acquisition) in the CC and MLO projections. 2-D mediolateral oblique (MLO) and craniocaudad (CC) views of both breasts were obtained. CAD: Full Field Digital Mammography with Computer Added Detection was performed. COMPARISON: Comparison is made with prior examination dated 12/01/2020 and 11/07/2019. FINDINGS: Breast Composition: The breasts are heterogeneously dense, which may obscure small masses. There are no dominant masses or suspicious calcifications. No other significant abnormalities are identified. There has been no significant change since the prior study. BI/SCRN MAMM (CAD)W/TISHA BILAT IMPRESSION: Stable bilateral screening mammogram. Yearly follow-up mammogram recommended. (A) ASSESSMENT CATEGORY: BIRADS Category 1: Negative. A letter regarding these results will be sent to the patient by the facility within 30 days. Approximately 10% of breast cancers are not detected by mammography. A normal mammogram should not delay biopsy of a clinically suspicious abnormality. [id number] Electronically Signed: Collin Castañeda MD at 15:13 EDT ,
--- NOTE | 2021-12-31 14:14 | BD_ITS ---
STUDY: DUAL ENERGY X-RAY ABSORPTIOMETRY / DXA REASON FOR EXAM: Female, 66 years old. M810. Patient is postmenopausal. TECHNIQUE: Bone Mineral Density (BMD) measurements of lumbar spine and bilateral hips were obtained. COMPARISON: Comparison is made with prior study dated 11/07/2019. FINDINGS: Lumbar Spine (L1-L4): g/cm2 (1.086) / T-score (1.0) / Z-score (2.8) Findings are suggestive of normal bone density with a low fracture risk. Left Femur Total: g/cm2 (0.820) / T-score (-1.0) / Z-score (0.4) Left Femoral Neck: g/cm2 (0.691) / T-score (-1.4) / Z-score (0.3) Right Femur Total: g/cm2 (0.698) / T-score (-2.0) / Z-score (-0.6) Right Femoral Neck: g/cm2 (0.619) / T-score (-2.1) / Z-score (-0.4) The T-Scores on the most recent prior examination were: Lumbar Spine (L1-L4): There has been improvement of bone density since the previous examination. Left Femur Total: which represents an improvement of 1.2%. Right Femur Total: which represents an improvement of 11.7%. BD/Dexa Bone Density Study IMPRESSION: The patient is considered osteopenic as outlined below according to World Rick Organization (WHO) criteria with a moderate fracture risk. There has been improvement of bone density since the previous examination. Reference Information: The T-score is the number of standard deviations above or below the standard which is normal for young adults at their peak bone mineral density. The World Health Organization (WHO) interprets the T-scores as follows: Above -1 Normal bone density Between -1 and -2.5 Osteopenia Equal to / or below -2.5 Osteoporosis As a practical clinical guideline, osteopenia may be graded as follows: Mild -1 through -1.5 Moderate -1.6 through -2.0 Severe -2.1 through -2.4 The Z-score is the number of standard deviations above or below age-matched controls. A Z-score of less than -1.5 would be considered abnormal. References: 1. NIH Osteoporosis and Related Bone Diseases www osteo.org 2. International Society for Clinical Densitometry www iscd.org 3. National Osteoporosis Foundation www nof.org Electronically Signed: Collin Castañeda MD at 12:36 EDT ,
== END 2021-12-31 23:59 | disposition home or self-care (01) ==
LOC: OPBD 14:07
PROVIDERS: PCP Family Medicine; Visit Provider Family Medicine
DX: Z12.31 Encounter for screening mammogram for malignant neoplasm of breast (principal); M81.0 Age-related osteoporosis without current pathological fracture
CPT/HCPCS: 77063; 77067; 77080

== ENCOUNTER → 2022-01-20 | Outpatient (CLI) | payer MEDICARE, SELFPAY ==
[2022-01-20 15:24] LABS: Potassium 4.1 mmol/L (3.5-5.1)
== END | disposition home or self-care (01) ==
LOC: MTLAB 13:31
PROVIDERS: PCP Family Medicine; Referring Provider Family Medicine; Visit Provider Family Medicine
DX: E87.5 Hyperkalemia (principal)
CPT/HCPCS: 36415; 84132

== ENCOUNTER → 2022-07-01 | Outpatient (CLI) | payer MEDICARE, SELFPAY ==
--- NOTE | 2022-07-01 14:26 | RAD_ITS ---
EXAM: XR CHEST, 2 VIEWS CLINICAL INDICATION: cough TECHNIQUE: Frontal and lateral views of the chest. This report was created using [employer] report generation technology. COMPARISON: None. FINDINGS: LUNGS AND PLEURAL SPACES: Unremarkable. No consolidation or edema. No pneumothorax. No effusion. HEART: Unremarkable. Cardiac silhouette not enlarged. MEDIASTINUM: Central airways and mediastinal contour are unremarkable. BONES/JOINTS: Degenerative changes of the spine. Surgical changes of the left shoulder. SOFT TISSUES: Unremarkable. TUBES, LINES AND DEVICES: Leads extending into the thoracic spinal canal. RAD/Chest PA and Lateral IMPRESSION: No acute findings in the chest. Electronically Signed: Surya Mei MD at 3:01 EST ,
== END | disposition home or self-care (01) ==
LOC: MTRAD 14:24
PROVIDERS: PCP Family Medicine; Referring Provider Family Medicine; Visit Provider Family Medicine
DX: R05.9 Cough, unspecified (principal)
CPT/HCPCS: 71046

== ENCOUNTER → 2022-11-23 | Outpatient (CLI) | payer MEDICARE, SELFPAY ==
[2022-11-23 18:03] LABS: T4 Free Direct 0.97 ng/dL (0.76-1.46); Thyroid Stim Hormone (TSH) 2.72 uIU/mL (0.358-3.74)
== END | disposition home or self-care (01) ==
LOC: MFPLAB 14:30
PROVIDERS: PCP Family Medicine; Visit Provider Family Medicine
DX: E03.9 Hypothyroidism, unspecified (principal)
CPT/HCPCS: 36415; 84439; 84443

== ENCOUNTER → 2023-01-26 | Outpatient (CLI) | payer MEDICARE, SELFPAY ==
--- NOTE | 2023-01-26 12:44 | BI_ITS ---
MAMMOGRAPHY - BILATERAL SCREENING REASON FOR EXAM: Female, 67 years old. Routine annual screening examination. PERTINENT HISTORY: Non-contributory. TECHNIQUE: Digital bilateral breast tisha (3D mammographic acquisition) in the CC and MLO projections. 2-D mediolateral oblique (MLO) and craniocaudad (CC) views of both breasts were obtained. CAD: Full Field Digital Mammography with Computer Added Detection was performed. COMPARISON: Screening mammogram from 12/31/2021, 12/01/2020. FINDINGS: Breast Composition: The breasts are heterogeneously dense, which may obscure small masses. There are no dominant masses or suspicious calcifications. No other significant abnormalities are identified. There has been no significant change since the prior study. BI/SCRN MAMM (CAD)W/TISHA BILAT IMPRESSION: Stable bilateral screening mammogram. Yearly follow-up mammogram recommended. (A) ASSESSMENT CATEGORY: BIRADS Category 1: Negative. A letter regarding these results will be sent to the patient by the facility within 30 days. Approximately 10% of breast cancers are not detected by mammography. A normal mammogram should not delay biopsy of a clinically suspicious abnormality. Electronically Signed: Baltazar Durbin DO at 14:51 EDT ,
== END | disposition home or self-care (01) ==
LOC: OPBI 12:43
PROVIDERS: PCP Family Medicine; Referring Provider Family Medicine; Visit Provider Family Medicine
DX: Z12.31 Encounter for screening mammogram for malignant neoplasm of breast (principal)
CPT/HCPCS: 77063; 77067

== ENCOUNTER → 2023-10-26 | Outpatient (CLI) | payer MEDICARE, SELFPAY ==
[2023-10-26 13:05] LABS: T4 Free Direct 1.15 ng/dL (0.76-1.46); Thyroid Stim Hormone (TSH) 1.84 uIU/mL (0.358-3.74)
== END | disposition home or self-care (01) ==
LOC: MFPLAB 10:27
PROVIDERS: Visit Provider Family Medicine
DX: Z96.651 Presence of right artificial knee joint (principal)
CPT/HCPCS: 36415; 84439; 84443

== ENCOUNTER → 2024-01-30 | Outpatient (CLI) | payer MEDICARE, SELFPAY ==
--- NOTE | 2024-01-30 14:44 | BI_ITS ---
MAMMOGRAPHY - BILATERAL SCREENING REASON FOR EXAM: Female, 68 years old. Routine annual screening examination. PERTINENT HISTORY: Non-contributory. TECHNIQUE: Digital bilateral breast tisha (3D mammographic acquisition) in the CC and MLO projections. 2-D mediolateral oblique (MLO) and craniocaudad (CC) views of both breasts were obtained. CAD: Full Field Digital Mammography with Computer Added Detection was performed. COMPARISON: Comparison is made with prior study January 26, 2023 and December 31, 2021. FINDINGS: Breast Composition: The breasts are heterogeneously dense, which may obscure small masses. There are no dominant masses or suspicious calcifications. No other significant abnormalities are identified. There has been no significant change since the prior study. BI/SCRN MAMM (CAD)W/TISHA BILAT IMPRESSION: Stable bilateral screening mammogram. Yearly follow-up mammogram recommended. (A) ASSESSMENT CATEGORY: BIRADS Category 1: Negative. A letter regarding these results will be sent to the patient by the facility within 30 days. Approximately 10% of breast cancers are not detected by mammography. A normal mammogram should not delay biopsy of a clinically suspicious abnormality. [id number] Electronically Signed: Collin Castañeda MD at 15:12 EDT ,
== END | disposition home or self-care (01) ==
LOC: OPBI 14:43
PROVIDERS: PCP Family Medicine; Referring Provider Family Medicine; Visit Provider Family Medicine
DX: Z12.31 Encounter for screening mammogram for malignant neoplasm of breast (principal)
CPT/HCPCS: 77063; 77067

== ENCOUNTER → 2024-04-06 | Outpatient (CLI) | payer MEDICARE, SELFPAY | END | disposition home or self-care (01) | PROVIDERS: PCP Family Medicine; Referring Provider Family Medicine; Visit Provider Family Medicine | DX: M79.672 Pain in left foot (principal); M25.572 Pain in left ankle and joints of left foot | CPT/HCPCS: 73610; 73630 ==

== ENCOUNTER → 2024-08-06 | Outpatient (CLI) | payer MEDICARE, SELFPAY ==
--- NOTE | 2024-08-06 10:17 | MRI_ITS ---
PROCEDURE: MRI left ankle without IV contrast REASON FOR EXAM: Pain TECHNIQUE: Multisequence multiplanar MR images of the left ankle were obtained without the administration of intravenous contrast. COMPARISON: None. FINDINGS Motion degraded exam. Mild distal Achilles tendinopathy without tear. Split tear of the peroneus brevis tendon and its retromalleolar and inframalleolar segments. Peroneus longus tendon is intact. Flexor and extensor tendons are intact. Syndesmotic ligaments are intact. Anterior talofibular, posterior talofibular and calcaneofibular ligaments are intact. Deep and superficial deltoid ligaments are intact. Plantar fascia is within normal limits. Mild edema in the sinus tarsi. Negative for fracture or marrow replacement. No suspicious erosions. Probable small intraosseous ganglion along the anterior calcaneus. Small osteochondral lesion along the lateral talar convexity measuring 3 x 3 x 7 mm. Superficial soft tissues are within normal limits. MRI/Lower Ext Joint Only (Routine) IMPRESSION: 1. Mild Achilles tendinopathy. 2. Split tear of the peroneus brevis tendon. 3. Mild edema in the sinus tarsi which can be seen with sinus tarsi syndrome. 4. Small osteochondral lesion along the lateral talar convexity. Reading Location: [facility]
== END | disposition home or self-care (01) ==
LOC: MRI 10:11
PROVIDERS: PCP Family Medicine; Referring Provider Podiatrist; Visit Provider Podiatrist
DX: M19.072 Primary osteoarthritis, left ankle and foot (principal)
CPT/HCPCS: 73721

== ENCOUNTER → 2024-10-04 | Outpatient (CLI) | payer MEDICARE, SELFPAY ==
[2024-10-04 12:20] LABS: Absolute Lymphocyte Count 1.62 X10^3/uL (0.83-4.51); Absolute Neutrophil Count 4.3 X10^3/uL (2.0-7.7); Basophil# 0.05 X10^3/uL; Basophil% 0.7 % (0-1); Eosinophil# 0.14 X10^3/uL; Eosinophils% 2.1 % (0-5); Hematocrit 37.8 % (37-47); Hemoglobin 12.2 g/dL (12.0-15.0); Lymphocyte # 1.62 X10^3/ul (0.83-4.51); Lymphocyte % 23.8 % (19-41); Mean Corp Hgb Conc 32.3 g/dL (32-36); Mean Corpuscular Hgb 31.3 pg (27.0-32.0); Mean Corpuscular Volume 96.9 fL (81-99); Mean Platelet Vol. 8.6 fl (6.2-12.0); Monocyte# 0.66 X10^3/uL; Monocyte% 9.7 % (0-10); NRBC Flagged by Analyzer 0 % (0-5); Neutrophil # 4.32 X10^3/uL (2.7-7.7); Neutrophil % 63.3 % (47-70); Platelet Count 285 K/mm3 (150-450); RBC Distribution Width CV 13.4 % (11.6-14.6); RBC Distribution Width SD 46.9 fl (35.1-43.9); White Blood Count 6.8 K/mm3 (4.4-11.0)
[2024-10-04 16:19] LABS: ALB/GLOB Ratio 1.6 RATIO (0.9-2.4); AST(SGOT) 22 U/L (<=31); Alanine Aminotransfer ALT/SGPT 17 U/L (<=34); Albumin, Serum 4.1 g/dL (3.4-4.8); Alkaline Phosphatase 54 U/L (35-104); Anion Gap 10 (5-15); BUN 23 mg/dL (4-19); BUN/Creat Ratio 39.7 RATIO (10-20); Calcium,Total 9.3 mg/dL (7.6-11.0); Carbon Dioxide 24.1 mmol/L (21.0-32.0); Chloride 103 mmol/L (98-108); Cholesterol 167 mg/dL (<=200); Creatinine, Serum 0.59 mg/dL (0.70-1.20); EST Glomerular Filtration Rate 97 (>60); Globulin 2.6 g/dL (2.2-4.2); Glucose 88 mg/dL (70-99); High Density Lipoprotein 59 mg/dL; Low Density Lipoprotein Calc. 98 mg/dL; Potassium 4.3 mmol/L (3.3-5.1); Protein, Total 6.7 g/dL (5.9-8.4); Sodium Level 137 mmol/L (133-145); Total Bilirubin 0.35 mg/dL (0.00-1.30); Triglycerides 50 mg/dL; Very Low Density Lipoprotein 10 mg/dL (5-40); cholesterol:hdl ratio screen 2.83
== END | disposition home or self-care (01) ==
PROVIDERS: PCP Family Medicine; Referring Provider Family Medicine; Visit Provider Family Medicine
DX: M06.9 Rheumatoid arthritis, unspecified (principal); E78.5 Hyperlipidemia, unspecified; Z13.1 Encounter for screening for diabetes mellitus; E03.9 Hypothyroidism, unspecified
CPT/HCPCS: 36415; 80053; 80061; 84439; 84443; 85025

== ENCOUNTER 2024-10-11 08:43 | Outpatient (RCR) | payer SELFPAY | END 2024-11-03 23:59 | LOC: NS 08:43 | PROVIDERS: PCP Family Medicine | DX: Z71.3 Dietary counseling and surveillance (principal) ==

== ENCOUNTER → 2025-01-30 | Outpatient (CLI) | payer MEDICARE, SELFPAY ==
--- NOTE | 2025-01-30 10:05 | BI_ITS ---
EXAM: SCRN MAMM (CAD)W/TISHA BILAT DATE: 01/30/2025 CLINICAL HISTORY: F, Age 69 y/o , ANNUAL No family history. TECHNIQUE: SCRN MAMM (CAD)W/TISHA BILAT COMPARISON: Prior exam(s) dated January 30, 2024.. FINDINGS: TISSUE DENSITY: The breasts are heterogeneously dense, which may obscure small masses. Bilateral Breast Mammographic Findings: No significant masses, calcifications or other abnormalities are identified. No suspicious masses, areas of developing architectural distortion, or suspicious calcifications. There has been no significant interval change. BI/SCRN MAMM (CAD)W/TISHA BILAT IMPRESSION: Stable examination. OVERALL FINAL ASSESSMENT BI-RADS 1: NEGATIVE. RECOMMENDATION: Routine annual follow-up in 1 Year A letter with findings and recommendations will be mailed to the patient. Reading Location: [id number]
== END | disposition home or self-care (01) ==
LOC: OPBI 10:04
PROVIDERS: PCP Family Medicine; Referring Provider Family Medicine; Visit Provider Family Medicine
DX: Z12.31 Encounter for screening mammogram for malignant neoplasm of breast (principal)
CPT/HCPCS: 77063; 77067

== ENCOUNTER 2025-04-04 12:01 | Outpatient (RCR) | payer SELFPAY | END 2025-04-05 23:59 | LOC: NS 12:01 | PROVIDERS: PCP Family Medicine | DX: Z71.3 Dietary counseling and surveillance (principal) ==

== ENCOUNTER → 2025-04-30 | Outpatient (CLI) | payer MEDICARE, SELFPAY ==
--- NOTE | 2025-04-30 08:28 | BD_ITS ---
PROCEDURE: DEXA BONE DENSITY STUDY 04/30/2025 REASON FOR EXAM: F, age 69 y/o . Postmenopausal. TECHNIQUE: Procedure Code: BDDBD Modality: DX Procedure: DEXA BONE DENSITY STUDY COMPARISON: DEXA examination dated 12/23/2021 FINDINGS: BMD and T-SCORES Lumbar spine: 1.064 g/cm2, T-score 0.8 Levels: L1 through L4 Change from prior: There has been a decrease in the bone mineral density of the lumbar spine by 2% since the prior study dated 12/23/2021. Left femoral neck: 0.665 g/cm2, T-score -1.7 Left total hip: 0.757 g/cm2, T-score -1.5 Change from prior: There has been a significant decrease in the bone mineral density of the left hip by 7.6% since the prior study dated 12/23/2021.. Right femoral neck: 0.623 g/cm2, T-score -2.0 Right total hip: 0.688 g/cm2, T-score -2.1 Change from prior: There has been a decrease in the bone mineral density of the right hip by 1.4% since the prior study dated 12/23/2021. The World Health Organization has defined the following categories based on bone density: Normal bone density: T-score equal to or greater than -1.0 Osteopenia: T-score between -1.0 and -2.5 Osteoporosis: T-score equal to or less than -2.5 FRAX (or Comparable) Fracture Risk Assessment: 10 Year Probability of Fracture: Major Osteoporotic Fracture: 23% Hip Fracture: 6.1% (Note: FRAX is not to be reported in setting of normal range bone density, osteoporosis on DEXA, known history of osteoporosis, prior osteoporotic hip or vertebral fracture, or for any patient undergoing pharmacological treatment for bone loss.) The National Osteoporosis Foundation (NOF) recommends pharmacological treatment for patients with a FRAX 10-year risk of 3% or higher for a hip fracture, or 20% or higher for a major osteoporotic fracture, to prevent osteoporosis and reduce fracture risk. The patient does meet the pharmacological treatment recommendations for prevention of osteoporosis. BD/Dexa Bone Density Study IMPRESSION: OSTEOPENIA. Recommend follow-up as clinically warranted. Reading Location: [facility] [place]
== END | disposition home or self-care (01) ==
LOC: OPBD 08:23
PROVIDERS: PCP Family Medicine
DX: Z13.820 Encounter for screening for osteoporosis (principal); M85.88 Other specified disorders of bone density and structure, other site
CPT/HCPCS: 77080